=== PATIENT | female | born 1965 | race Hispanic/Latino ===

== ENCOUNTER 2017-07-10 16:03 | Emergency (ER) | payer MEDICARE ==
[~2017-07-10] VITALS: Ht 162.6 cm; Wt 79.4 kg
== END 2017-07-10 17:16 | disposition home or self-care (01) ==
LOC: ER 16:03
DX: R50.9 Fever, unspecified (principal); R05 Cough; J20.8 Acute bronchitis due to other specified organisms; I10 Essential (primary) hypertension
CPT/HCPCS: 99283

== ENCOUNTER 2019-01-31 19:38 | Emergency (ER) | payer MEDICARE ==
[~2019-01-31] VITALS: Ht 162.6 cm; Wt 79.4 kg
--- OUTSIDE RECORDS SUMMARY | 2019-01-31 19:41 | XMS REPORT | Clinical Summary ---
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 Last Filed Vital Signs Not on file Plan of Treatment Health Maintenance Due Date Last Done Comments BREAST CANCER SCREENING 09/28/2013 COLONOSCOPY SCREENING 09/28/2013 SHINGLES VACCINES (#1) 09/28/2013 INFLUENZA VACCINE 02/17/2019 Results Not on fileafter 01/30/2018 Insurance Type Payer Benefit Subscriber ID Effective Phone Address Plan / Dates Group Medicare MEDICARE MEDICARE xxxxxxxxxx 2014- [place], PART A AND Present [place] Advance Directives Patient has advance care planning documents on file. For more information, debra maynard contact: [facility] Stephens [address] [place] [address]
--- OUTSIDE RECORDS SUMMARY | 2019-01-31 19:43 | XMS REPORT | Continuity of Care Document ---
Author Author [employer] Organization [employer] 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 Unavailable Unavailable Problems Problem Status Onset Date Classification Date Reported Comments Source CHEST PAIN Active 06/15/2012 [facility] PYELONEPHRITIS Active 06/11/2012 [facility] LEG NUMBNESS Active 12/16/2011 [facility] Asthma Active Problem 06/17/2012 [facility] Diabetic neuropathy Active Problem 06/17/2012 [facility] DM - Diabetes mellitus Active Problem 06/17/2012 [facility] HTN - Hypertension Active Problem 12/18/2011 [facility] MA - Myocardial infarction Active Problem 12/18/2011 [facility] PVD - Peripheral vascular disease Active Problem 12/18/2011 [facility] HTN - Hypertension Active Problem 06/17/2012 [facility] [place] - Myocardial infarction Active Problem 06/17/2012 [facility] PVD - Peripheral vascular disease Active Problem 06/17/2012 [facility] Medications Medication Details Route Status Patient Instructions Ordering Provider Order Date Source Phenergan 25 mg oral tablet 25 mg, 1 tab, PO, Q4H, PRN, 15 tab, Nausea, Substitution Allowed PO Active [facility] 06/16/2012 [facility] Vicodin 5/500 oral tablet 1-2 tablets, PO, Q4-6H, PRN, 30 tab, for Pain, Substitution Allowed, Maintenance PO Active [facility] 06/16/2012 [facility] Cipro 500 mg oral tablet 500 mg, 1 tab, PO, Q12H, 28 tab, Substitution Allowed, TAB PO Active [facility] 06/16/2012 [facility] ondansetron 4 mg, Route: IVP, Drug form: INJ, ONCE, Dosing Weight 76.364, kg, Priority: STAT, Start date: 06/16/12 3:07:00, Stop date: 06/16/12 3:07:00 IVP No Longer Active [facility] 06/16/2012 [facility] ketorolac 30 mg, Route: IVP, Drug form: INJ, ONCE, Dosing Weight 76.364, kg, Priority: STAT, Start date: 06/16/12 3:06:00, Stop date: 06/16/12 3:06:00 IVP No Longer Active [facility] 06/16/2012 [facility] hydrALAZINE 20 mg, Route: IVP, ONCE, Dosing Weight 76.364, kg, Priority: STAT, Start date: 06/16/12 2:33:00, Stop date: 06/16/12 2:33:00 IVP No Longer Active [facility] 06/16/2012 [facility] Insulin regular 6 unit, Route: SUB-Q, ONCE, Dosing Weight 76.364, kg, Start date: 06/16/12 1:36:00, Stop date: 06/16/12 1:36:00 SUB-Q No Longer Active [facility] 06/16/2012 [facility] clonidine 0.2 mg oral tablet 1 tab, Route: PO, ONCE, Dosing Weight 76.364, kg, Start date: 06/16/12 1:36:00, Stop date: 06/16/12 1:36:00 PO No Longer Active [facility] 06/16/2012 [facility] Levaquin 750 mg, Route: IV, ONCE, Dosing Weight 76.364, kg, Start date: 06/16/12 1:01:00, Stop date: 06/16/12 1:01:00 IV No Longer Active [facility] 06/16/2012 [facility] Dilaudid 1 mg, Route: IV, ONCE, Dosing Weight 76.364, kg, Priority: STAT, Start date: 06/16/12 0:26:00, Stop date: 06/16/12 0:26:00 IV No Longer Active [facility] 06/16/2012 [facility] ondansetron 4 mg, 2 mL, Route: IVP, Drug form: INJ, ONCE, Dosing Weight 76.364, kg, Priority: STAT, Start date: 06/15/12 22:18:00, Stop date: 06/15/12 22:18:00 IVP No Longer Active [facility] 06/16/2012 [facility] hydromorphone 1 mg, 1 mL, Route: IVP, Drug form: SOLN, ONCE, Dosing Weight 76.364, kg, Priority: STAT, Start date: 06/15/12 22:18:00, Stop date: 06/15/12 22:18:00 IVP No Longer Active [facility] 06/16/2012 [facility] Saline Flush 0.9% 5 mL, Route: IVP, Drug Form: INJ, Dosing Weight 76.364, kg, PRN, PRN Line Flush, Start date: 06/15/12 22:18:00, Duration: 24 hr, Stop date: 06/16/12 22:17:00 IVP No Longer Active [facility] 06/16/2012 [facility] [place] 5/325 oral tablet 1 tab, PO, Q6H, PRN, 14 tab, as needed for pain, Substitution Allowed, Maintenance, TAB PO Active [facility] 06/13/2012 [facility] Augmentin 875 mg oral tablet 1 tab, PO, Q12H, 14 tab, Substitution Allowed, Maintenance, TAB PO Active [facility] 06/13/2012 [facility] Toprol-XL 100 mg oral tablet, extended release 100 mg, 1 tab, Route: PO, Drug form: ERTAB, Daily, Start date: 06/13/12 9:00:00, Duration: 30 day, Stop date: 07/12/12 9:00:00 PO No Longer Active [facility] 06/13/2012 [facility] Lovenox 40 mg, 0.4 mL, Route: SUB-Q, Drug form: INJ, [id number], Dosing Weight 76.364, kg, Start date: 06/12/12 16:00:00, Duration: 30 day, Stop date: 07/11/12 16:00:00 SUB-Q No Longer Active [facility] 06/12/2012 [facility] NS 1,000 mL 1,000 mL, Rate: 125 ml/hr, Infuse over: 8 hr, Route: IV, kg, Total Volume: 1,000, Start date: 06/12/12 15:14:00, Duration: 30 day, Stop date: 07/12/12 15:13:00 IV No Longer Active [facility] 06/12/2012 [facility] Dilaudid 2 mg, 1 mL, Route: IV, Drug form: INJ, Q3H, Dosing Weight 76.364, kg, PRN Pain, Start date: 06/12/12 13:12:00, Duration: 30 day, Stop date: 07/12/12 13:11:00 IV No Longer Active [facility] 06/12/2012 [facility] promethazine 25 mg, 1 mL, Route: IM, Drug form: INJ, ONCE, Dosing Weight 76.364, kg, PRN Pain, Start date: 06/12/12 13:11:00 IM No Longer Active [facility] 06/12/2012 [facility] meperidine 50 mg, 1 mL, Route: IM, Drug form: INJ, ONCE, Dosing Weight 76.364, kg, PRN Pain, Start date: 06/12/12 13:10:00, Stop date: 06/16/12 13:09:00 IM No Longer Active [facility] 06/12/2012 [facility] lisinopril 20 mg, 1 tab, Route: PO, Drug form: TAB, Daily, Dosing Weight 76.364, kg, Start date: 06/12/12 9:00:00, Duration: 30 day, Stop date: 07/11/12 9:00:00 PO No Longer Active [facility] 06/12/2012 [facility] Dilaudid 1 mg, 1 mL, Route: IV, Drug form: SOLN, Q4H, Dosing Weight 76.364, kg, PRN Pain, Start date: 06/12/12 8:21:00, Duration: 30 day, Stop date: 07/12/12 8:20:00 IV No Longer Active [facility] 06/12/2012 [facility] NS 250 mL 250 mL, Rate: 25 ml/hr, Infuse over: 10 hr, Route: IV, kg, Total Volume: 250, Start date: 06/12/12 7:57:00, Duration: 1 doses or times, Stop date: 06/12/12 17:56:00, Bolus DoseBolus Dose IV No Longer Active [facility] 06/12/2012 [facility] glucagon 1 mg, Route: IM, Drug form: PDR/INJ, PRN, PRN Blood Glucose Results, Start date: 06/12/12 7:33:00, Duration: 30 day, Stop date: 07/12/12 7:32:00 IM No Longer Active [facility] 06/12/2012 [facility] Dextrose 50% in Water IV 50 mL, Route: IVP, Start date: 06/12/12 7:33:00, Duration: 30 day, Stop date: 07/12/12 7:32:00, PRN Blood Glucose Results IVP No Longer Active [facility] 06/12/2012 [facility] NovoLog FlexPen 18 unit, 0.18 mL, Route: SUB-Q, Drug form: SOLN, Sliding Scale, PRN Blood Glucose Results, Start date: 06/12/12 7:33:00, Duration: 30 day, Stop date: 07/12/12 7:32:00 SUB-Q No Longer Active [facility] 06/12/2012 [facility] meperidine 25 mg, 0.5 mL, Route: IVP, Drug form: INJ, Q4H, Dosing Weight 76.364, kg, PRN Pain, Start date: 06/12/12 7:27:00, Stop date: 06/16/12 7:26:00 IVP No Longer Active [facility] 06/12/2012 [facility] promethazine + Sodium Chloride 0.9% IV 20 mL 25 mg, 1 mL, Route: IVP Central, Drug form: INJ, Q4H, Dosing Weight 76.364, kg, PRN Nausea & Vomiting, Start date: 06/12/12 7:27:00, Duration: 30 day, Stop date: 07/12/12 7:26:00 IVP Central No Longer Active [facility] 06/12/2012 [facility] Dilaudid 1 mg, 1 mL, Route: IV, Drug form: SOLN, Q4H, Dosing Weight 76.364, kg, Start date: 06/12/12 4:00:00, Duration: 30 day, Stop date: 07/12/12 0:00:00 IV No Longer Active [facility] 06/12/2012 [facility] Novolin R 30 units, Bedtime, Substitution Allowed Active 06/12/2012 [facility] ceftriaxone + Sodium Chloride 0.9% IV 100 mL 1 gm, Route: IVPB, [id number], Dosing Weight 76.364, kg, Start date: 06/12/12 3:00:00, Duration: 30 day, Stop date: 07/11/12 3:00:00 IVPB No Longer Active [facility] 06/12/2012 [facility] Zofran 4 mg, 2 mL, Route: IVP, Drug form: INJ, TID, Dosing Weight 76.364, kg, Priority: STAT, Start date: 06/12/12 2:07:00, Duration: 30 day, Stop date: 07/11/12 17:00:00 IVP No Longer Active [facility] 06/12/2012 [facility] Rocephin 1 g/ NS (NaCl 0.9%) 50 mL IV solution + Sodium Chloride 0.9% IV 100 mL 1 gm, Route: IVPB, ONCE, Dosing Weight 76.364, kg, Priority: STAT, Start date: 06/11/12 23:55:00, Stop date: 06/11/12 23:55:00 IVPB No Longer Active [facility] 06/12/2012 [facility] Dilaudid 1 mg, 1 mL, Route: IV, Drug form: SOLN, ONCE, Dosing Weight 76.364, kg, Start date: 06/11/12 23:44:00, Stop date: 06/11/12 23:44:00 IV No Longer Active [facility] 06/12/2012 [facility] Benadryl 25 mg, 0.5 mL, Route: IVP, Drug form: INJ, ONCE, Dosing Weight 76.364, kg, Priority: STAT, Start date: 06/11/12 22:53:00, Stop date: 06/11/12 22:53:00 IVP No Longer Active [facility] 06/12/2012 [facility] morphine Sulfate 4 mg, 2 mL, Route: IVP, Drug form: INJ, ONCE, Dosing Weight 76.364, kg, Priority: STAT, Start date: 06/11/12 21:43:00, Stop date: 06/11/12 21:43:00 IVP No Longer Active [facility] 06/12/2012 [facility] Sodium Chloride 0.9% (Bolus) IV 1,000 mL 1,000 mL, Rate: 1,000 ml/hr, Infuse over: 1 hr, Route: IV, kg, Total Volume: 1,000, Bolus Dose, Priority: STAT, Start date: 06/11/12 21:43:00, Duration: 1 doses or times, Stop date: 06/11/12 22:42:00 IV No Longer Active [facility] 06/12/2012 [facility] Zofran 4 mg, 2 mL, Route: IVP, Drug form: INJ, ONCE, Dosing Weight 76.364, kg, Priority: STAT, Start date: 06/11/12 21:43:00, Stop date: 06/11/12 21:43:00 IVP No Longer Active [facility] 06/12/2012 [facility] Augmentin 875 mg oral tablet 1 tab, PO, Q12H, 20 tab, Substitution Allowed, Maintenance, TAB PO Active [facility] 12/16/2011 [facility] ibuprofen 400 mg oral tablet 400 mg, PO, Q6H, PRN, 15 tab, Pain, Substitution Allowed PO Active [facility] 12/16/2011 [facility] Zosyn 3.375 gm, 100 mL, Route: IVPB, Drug form: PDR/INJ, ONCE, Priority: STAT, Start date: 12/16/11 18:40:00, Stop date: 12/16/11 18:40:00 IVPB No Longer Active [facility] 12/16/2011 [facility] ondansetron 4 mg, 2 mL, Route: IVP, Drug form: INJ, ONCE, Priority: STAT, Start date: 12/16/11 13:52:00, Stop date: 12/16/11 13:52:00 IVP No Longer Active [facility] 12/16/2011 [facility] morphine Sulfate 4 mg, 2 mL, Route: IVP, Drug form: INJ, ONCE, Priority: STAT, Start date: 12/16/11 13:52:00, Stop date: 12/16/11 13:52:00 IVP No Longer Active [facility] 12/16/2011 [facility] Sodium Chloride 0.9% (Bolus) IV 1,000 mL 1,000 mL, Rate: 1,000 ml/hr, Infuse over: 1 hr, Route: IV, Dosing Weight 77.7 kg, Total Volume: 1,000, Bolus Dose, Priority: STAT, Start date: 12/16/11 13:52:00, Duration: 1 doses or times, Stop date: 12/16/11 14:51:00 IV No Longer Active [facility] 12/16/2011 [facility] Pneumovax 23 0.5 ml, Route: IM, Drug Form: INJ, ONCE, Start date: 12/15/11 12:00:00, Stop date: 12/15/11 12:00:00 IM No Longer Active [facility] 12/15/2011 [facility] [place] 5/325 oral tablet 1 tab, PO, Q4H, PRN, 20 tab, for pain, Substitution Allowed, Maintenance, TAB PO Active [facility] 12/15/2011 [facility] Augmentin 500 mg oral tablet 1 tab, PO, Q12H, 14 tab, Substitution Allowed, Maintenance PO Active [facility] 12/15/2011 [facility] Insulin regular 10 unit, Route: IVP, ONCE, Start date: 12/14/11 14:17:00, Stop date: 12/14/11 14:17:00 IVP No Longer Active [facility] 12/14/2011 [facility] ondansetron 4 mg, 2 mL, Route: IVP, Drug form: INJ, ONCE, PRN Nausea & Vomiting, Start date: 12/14/11 14:17:00 IVP No Longer Active [facility] 12/14/2011 [facility] flumazenil 0.2 mg, 2 mL, Route: IVP, Drug form: INJ, PRN, PRN Benzodiazepine Reversal, Initial dose, Start date: 12/14/11 14:17:00, Duration: 30 day, Stop date: 01/13/12 14:16:00 IVP No Longer Active [facility] 12/14/2011 [facility] naloxone 0.04 mg, 0.1 mL, Route: IVP, Drug form: INJ, Q2MIN, PRN Narcotic Reversal, Start date: 12/14/11 14:17:00, Duration: 8 doses or times, Stop date: Limited # of times IVP No Longer Active [facility] 12/14/2011 [facility] morphine Sulfate 2 mg, 1 mL, Route: IVP, Drug form: INJ, Q5Min, PRN Pain Score 4-6, Start date: 12/14/11 14:17:00, Duration: 8 doses or times, Stop date: Limited # of times IVP No Longer Active [facility] 12/14/2011 [facility] meperidine 12.5 mg, 0.25 mL, Route: IVP, Drug form: INJ, Q30Min, PRN Other -See Comment, For shivering, Start date: 12/14/11 14:17:00, Duration: 2 doses or times, Stop date: Limited # of times IVP No Longer Active [facility] 12/14/2011 [facility] Invanz 1 gm, Route: IVPB, ONCALL, Start date: 12/13/11 13:00:00, Duration: 1 doses or times IVPB No Longer Active [facility] 12/13/2011 [facility] Rocephin 1 gm, Route: IVPB, [id number], Start date: 12/13/11 1:00:00, Duration: 30 day, Stop date: 01/11/12 1:00:00 IVPB No Longer Active [facility] 12/13/2011 [facility] Protonix 40 mg, Route: IVP, Drug form: INJ, Before Dinner, Start date: 12/12/11 16:30:00, Duration: 30 day, Stop date: 01/10/12 16:30:00 IVP No Longer Active [facility] 12/12/2011 [facility] Vasotec 1.25 mg, 1 mL, Route: IVP, Drug form: INJ, Q6H, Start date: 12/12/11 12:00:00, Duration: 30 day, Stop date: 01/11/12 6:00:00 IVP No Longer Active [facility] 12/12/2011 [facility] insulin aspart 4 unit, 0.04 mL, Route: SUB-Q, Drug form: SOLN, TID-Before Meals, PRN Blood Glucose Results, Start date: 12/12/11 10:24:00, Duration: 30 day, Stop date: 01/11/12 10:23:00 SUB-Q No Longer Active [facility] 12/12/2011 [facility] Dextrose 50% Syringe 25 gm, 50 mL, Route: IVP, Drug Form: INJ, PRN, PRN Blood Glucose Results, Start date: 12/12/11 10:24:00, Duration: 30 day, Stop date: 01/11/12 10:23:00 IVP No Longer Active [facility] 12/12/2011 [facility] glucagon 1 mg, Route: IM, Drug form: PDR/INJ, PRN, PRN Blood Glucose Results, Start date: 12/12/11 10:24:00, Duration: 30 day, Stop date: 01/11/12 10:23:00 IM No Longer Active [facility] 12/12/2011 [facility] pneumococcal 23-valent vaccine 0.5 ml, Route: IM, Drug Form: INJ, Start date: 12/12/11 9:00:00, Stop date: 12/12/11 9:00:00 IM No Longer Active [facility] 12/12/2011 [facility] Zosyn 3.375 gm, 100 mL, Route: IVPB, Drug form: PDR/INJ, [id number], Start date: 12/12/11 9:00:00, Duration: 30 day, Stop date: 01/11/12 3:00:00 IVPB No Longer Active [facility] 12/12/2011 [facility] Dilaudid 2 mg, 1 mL, Route: IV, Drug form: INJ, Q3H, PRN Pain, Start date: 12/12/11 8:53:00, Duration: 30 day, Stop date: 01/11/12 8:52:00 IV No Longer Active [facility] 12/12/2011 [facility] nitroglycerin 0.4 mg sublingual tablet 0.4 mg, 1 tab, Route: SL, Drug form: TAB, Q5Min, PRN Chest Pain, Start date: 12/12/11 3:14:00, Duration: 30 day, Stop date: 01/11/12 3:13:00 SL No Longer Active [facility] 12/12/2011 [facility] atropine 0.5 mg, 5 mL, Route: IVP, Drug form: INJ, PRN, PRN Bradycardia, Start date: 12/12/11 3:14:00, Duration: 30 day, Stop date: 01/11/12 3:13:00 IVP No Longer Active [facility] 12/12/2011 [facility] Dextrose 50% Syringe 12.5 gm, 25 mL, Route: IVP, Drug Form: INJ, PRN, PRN Blood Glucose Results, Start date: 12/12/11 3:10:00, Duration: 30 day, Stop date: 01/11/12 3:09:00 IVP No Longer Active [facility] 12/12/2011 [facility] glucagon 1 mg, Route: IM, Drug form: PDR/INJ, PRN, PRN Blood Glucose Results, Start date: 12/12/11 3:10:00, Duration: 30 day, Stop date: 01/11/12 3:09:00 IM No Longer Active [facility] 12/12/2011 [facility] Saline Flush 0.9% 5 ml, Route: IVP, Drug Form: INJ, PRN, PRN Line Flush, Start date: 12/12/11 3:10:00, Duration: 30 day, Stop date: 01/11/12 3:09:00 IVP No Longer Active [facility] 12/12/2011 [facility] Sodium Chloride 0.9% IV 1,000 mL 1,000 mL 1,000 mL, Rate: 75 ml/hr, Infuse over: 13.3 hr, Route: IV, Dosing Weight 77.727 kg, Total Volume: 1,000, Start date: 12/12/11 3:10:00, Duration: 30 day, Stop date: 01/11/12 3:09:00 IV No Longer Active [facility] 12/12/2011 [facility] ondansetron 4 mg, 2 mL, Route: IVP, Drug form: INJ, Q6H, PRN Nausea & Vomiting, Start date: 12/12/11 3:10:00, Duration: 30 day, Stop date: 01/11/12 3:09:00 IVP No Longer Active [facility] 12/12/2011 [facility] morphine Sulfate 4 mg, 2 mL, Route: IVP, Drug form: INJ, Q4H, PRN Pain Score 7-10, Start date: 12/12/11 3:10:00, Duration: 30 day, Stop date: 01/11/12 3:09:00 IVP No Longer Active [facility] 12/12/2011 [facility] morphine Sulfate 4 mg, Route: IVP, ONCE, Priority: STAT, Start date: 12/12/11 2:30:00, Stop date: 12/12/11 2:30:00 IVP No Longer Active [facility] 12/12/2011 [facility] NS (Bolus) IV 1000 mL 1,000 mL, Rate: 1,000 ml/hr, Infuse over: 1 hr, Route: IV, Dosing Weight 77.727 kg, Total Volume: 1,000, Priority: STAT, Start date: 12/12/11 1:01:00, Duration: 1 doses or times, Stop date: 12/12/11 2:00:00, Bolus DoseBolus Dose IV No Longer Active [facility] 12/12/2011 [facility] Rocephin 1 gm, Route: IVPB, ONCE, Start date: 12/12/11 0:05:00, Stop date: 12/12/11 0:05:00 IVPB No Longer Active [facility] 12/12/2011 [facility] Insulin regular 10 unit, Route: SUB-Q, ONCE, Priority: STAT, Start date: 12/12/11 0:03:00, Stop date: 12/12/11 0:03:00 SUB-Q No Longer Active [facility] 12/12/2011 [facility] morphine Sulfate 4 mg, Route: IVP, ONCE, Start date: 12/12/11 0:03:00, Stop date: 12/12/11 0:03:00 IVP No Longer Active [facility] 12/12/2011 [facility] Protonix 40 mg, Route: IVP, Drug form: INJ, ONCE, Priority: STAT, Start date: 12/11/11 22:32:00, Stop date: 12/11/11 22:32:00 IVP No Longer Active [facility] 12/12/2011 [facility] Saline Flush 0.9% 5 ml, Route: IVP, Drug Form: INJ, PRN, PRN Line Flush, Start date: 12/11/11 22:31:00, Duration: 24 hr, Stop date: 12/12/11 22:30:00 IVP No Longer Active [facility] 12/12/2011 [facility] ondansetron 4 mg, 2 mL, Route: IVP, Drug form: INJ, ONCE, Priority: STAT, Start date: 12/11/11 22:31:00, Stop date: 12/11/11 22:31:00 IVP No Longer Active [facility] 12/12/2011 [facility] morphine Sulfate 2 mg, 1 mL, Route: IVP, Drug form: INJ, ONCE, Priority: STAT, Start date: 12/11/11 22:31:00, Stop date: 12/11/11 22:31:00 IVP No Longer Active [facility] 12/12/2011 [facility] Tylenol 1,000 mg, 2 tab, Route: PO, Drug form: TAB, ONCE, Priority: STAT, Start date: 12/11/11 21:57:00, Stop date: 12/11/11 21:57:00 PO No Longer Active [facility] 12/12/2011 [facility] pneumococcal 23-valent vaccine 0.5 ml, Route: IM, Drug Form: INJ, ONCALL, Start date: 06/30/07 1:00:00, Duration: 1 doses or times, Stop date: 07/01/07 0:00:00 IM No Longer Active [facility] 06/30/2007 [facility] Allergies, Adverse Reactions, Alerts Substance Category Reaction Severity Reaction type Status Date Reported Comments Source morphine drug allergy Allergy Active [facility] Immunizations Immunization Date Given Site Status Last Updated Comments Source pneumococcal 23-valent vaccine 12/15/2011 Not Given [facility] pneumococcal 23-valent vaccine 12/15/2011 completed [facility] pneumococcal 23-valent vaccine<sup>1</sup> 06/30/2007 completed Marta Caraballo Comment: lot # [id number], exp. , david. [facility] Results Order Name Results Value Reference Range Date Interpretation Comments Source CHEMISTRY Lipase Lvl 145 73 - 393 06/16/2012 Normal [facility] CHEMISTRY AST 40 0 - 37 06/16/2012 [place] [facility] CHEMISTRY A/G Ratio 0.5 0.7 - 1.6 06/16/2012 LOW [facility] CHEMISTRY Bili Total 0.3 0.2 - 1.3 06/16/2012 Normal [facility] CHEMISTRY Total Protein 7.9 6.4 - 8.4 06/16/2012 Normal [facility] CHEMISTRY Globulin 5.1 2.0 - 4.0 06/16/2012 [place] [facility] CHEMISTRY Alk Phos 112 39 - 136 06/16/2012 Normal [facility] CHEMISTRY ALT 26 0 - 65 06/16/2012 Normal [facility] CHEMISTRY Calcium Lvl 9.3 8.5 - 10.5 06/16/2012 Normal [facility] CHEMISTRY Albumin Lvl 2.8 3.5 - 5.0 06/16/2012 LOW [facility] CHEMISTRY B/C Ratio 19 6 - 25 06/16/2012 Normal [facility] CHEMISTRY CO2 27 24 - 32 06/16/2012 Normal [facility] CHEMISTRY AGAP 12.9 10.0 - 20.0 06/16/2012 Normal [facility] CHEMISTRY eGFR 103 06/16/2012 NA <sup>1</sup>Result Comment: The eGFR is calculated using the CKD-EPI formula. In most young, healthy individuals the eGFR will be >90 mL/min/1.73m2. The eGFR declines with age. An eGFR of 60-89 may be normal in some populations, particularly the elderly, for whom the CKD-EPI formula has not been extensively validated. Use of the eGFR is not recommended in the following populations:& lt;br/>
Individuals with unstable creatinine concentrations, including patients and those with serious co-morbid conditions.

Patients with extremes in muscle mass or diet.

The data above are obtained from the National Kid[employer] Disease Education Program (NKDEP) which additionally recommends that when the eGFR is used in patients with extremes of body mass index for purposes of drug dosing, the eGFR should be multiplied by the estimated BMI. [facility] CHEMISTRY Chloride Lvl 101 95 - 109 06/16/2012 Normal [facility] CHEMISTRY Sodium Lvl 136 135 - 145 06/16/2012 Normal [facility] CHEMISTRY Potassium Lvl 4.9 3.5 - 5.1 06/16/2012 Normal [facility] CHEMISTRY Creatinine Lvl 0.7 0.5 - 1.4 06/16/2012 Normal [facility] CHEMISTRY Glucose Lvl 289 70 - 99 06/16/2012 [place] <sup>2</sup>Interpretive Data: Adult reference range values reflect the clinical guidelines
of the [place] [employer]. [facility] CHEMISTRY BUN 13 7 - 22 06/16/2012 Normal [facility] CHEMISTRY CK MB 3.1 0.5 - 3.6 06/16/2012 Normal [facility] CHEMISTRY Total CK 266 12 - 191 06/16/2012 [facility] CHEMISTRY Troponin-I <0.02 0.00 - 0.40 06/16/2012 Normal [facility] CHEMISTRY CK MB Index 1.2 0.0 - 2.5 06/16/2012 Normal [facility] HEMATOLOGY MPV 11.2 7.4 - 10.4 06/16/2012 [facility] HEMATOLOGY MCH 27.9 27.0 - 31.0 06/16/2012 Normal [facility] HEMATOLOGY Hct 33.2 36.0 - 48.0 06/16/2012 LOW [facility] HEMATOLOGY Hgb 10.8 12.0 - 16.0 06/16/2012 LOW [facility] HEMATOLOGY RBC 3.88 4.20 - 5.40 06/16/2012 LOW [facility] HEMATOLOGY MCV 85.7 81.0 - 99.0 06/16/2012 Normal [facility] HEMATOLOGY Platelet 344 133 - 450 06/16/2012 Normal [facility] HEMATOLOGY MCHC 32.6 32.0 - 36.0 06/16/2012 Normal [facility] HEMATOLOGY RDW 15.9 11.5 - 14.5 06/16/2012 [facility] HEMATOLOGY WBC 13.0 3.7 - 10.4 06/16/2012 [facility] HEMATOLOGY PT 11.5 12.0 - 14.7 06/16/2012 LOW [facility] HEMATOLOGY INR 0.82 0.85 - 1.17 06/16/2012 LOW <sup>3</sup>Interpretive Data: RECOMMENDED RANGES FOR PROTIME INR:
2.0-3.0 for most medical and surgical thromboembolic states.
2.5-3.5 for artificial heart valves and recurrent embolism.

INR SHOULD BE USED ONLY FOR PATIENTS ON STABLE ANTICOAGULANT THERAPY. [facility] HEMATOLOGY PTT 21.3 22.9 - 35.8 06/16/2012 LOW <sup>4</sup>Interpretive Data: Heparin Therapeutic Range: 57 - 92 Seconds [facility] HEMATOLOGY Lymphocytes 24.4 20.0 - 40.0 06/16/2012 Normal [facility] HEMATOLOGY Monocytes 6.1 2.0 - 12.0 06/16/2012 Normal [facility] HEMATOLOGY Eosinophils 3.0 0.0 - 4.0 06/16/2012 Normal [facility] HEMATOLOGY Segs 63.9 45.0 - 75.0 06/16/2012 Normal [facility] HEMATOLOGY Basophils 2.6 0.0 - 1.0 06/16/2012 [facility] HEMATOLOGY Segs-Bands # 8.3 1.5 - 8.1 06/16/2012 [facility] HEMATOLOGY Eosinophils # 0.4 0.0 - 0.5 06/16/2012 Normal [facility] HEMATOLOGY Basophils # 0.3 0.0 - 0.2 06/16/2012 [facility] HEMATOLOGY Lymphocytes # 3.2 1.0 - 5.5 06/16/2012 Normal [facility] HEMATOLOGY Monocytes # 0.8 0.0 - 0.8 06/16/2012 Normal [facility] URINALYSIS UA Leuk Est Large *ABN* (06/15/2012 23:10:00) Negative 06/16/2012 [facility] URINALYSIS UA Color Ltyellow 06/16/2012 [facility] URINALYSIS UA Urobilinogen 0.1 - 1.0 06/16/2012 [facility] URINALYSIS UA Protein 100 mg/dL *ABN* (06/15/2012 23:10:00) Negative 06/16/2012 [facility] URINALYSIS UA pH 7.0 5.0 - 8.0 06/16/2012 Normal [facility] URINALYSIS UA Glucose 500 mg/dL *ABN* (06/15/2012 23:10:00) Negative 06/16/2012 [facility] URINALYSIS UA Bacteria Few /HPF *NA* (06/15/2012 23:10:00) None Seen 06/16/2012 [facility] URINALYSIS UA RBC 14 0 - 2 06/16/2012 [facility] URINALYSIS UA WBC >182 0 - 5 06/16/2012 [facility] URINALYSIS UA Sq Epi Occasional /LPF *NA* (06/15/2012 23:10:00) Few 06/16/2012 NA [facility] URINALYSIS UA Blood Small *ABN* (06/15/2012 23:10:00) Negative 06/16/2012 ABN [facility] URINALYSIS UA Ketones Negative mg/dL *NA* (06/15/2012 23:10:00) Negative 06/16/2012 NA [facility] URINALYSIS UA Nitrite Positive *ABN* (06/15/2012 23:10:00) Negative 06/16/2012 ABN [facility] URINALYSIS UA Bili Negative *NA* (06/15/2012 23:10:00) Negative 06/16/2012 [facility] URINALYSIS UA Turbidity Marked *ABN* (06/15/2012 23:10:00) Clear 06/16/2012 ABN [facility] URINALYSIS UA Spec Grav 1.013 <=1.030 06/16/2012 Normal [facility] STOOL TESTS Occult Bld Stl Negative (06/15/2012 22:18:00) Negative 06/16/2012 Normal [facility] BEDSIDE GLUCOSE TESTING Comment1 Notify SUNDEEP/ 06/13/2012 [facility] BEDSIDE GLUCOSE TESTING Gluc POC Lifscn 201 70 - 99 06/13/2012 [place] <sup>1</sup>Interpretive Data: Upper Reportable Limit: 200 mg/dL. [facility] BEDSIDE GLUCOSE TESTING Comment1 Notify SUNDEEP/ 06/13/2012 [facility] BEDSIDE GLUCOSE TESTING Gluc POC Lifscn 191 70 - 99 06/13/2012 [place] <sup>2</sup>Interpretive Data: Upper Reportable Limit: 200 mg/dL. [facility] CHEMISTRY eGFR 44 06/13/2012 NA <sup>4</sup>Result Comment: The eGFR is calculated using the CKD-EPI formula. In most young, healthy individuals the eGFR will be >90 mL/min/1.73m2. The eGFR declines with age. An eGFR of 60-89 may be normal in some populations, particularly the elderly, for whom the CKD-EPI formula has not been extensively validated. Use of the eGFR is not recommended in the following populations:& lt;br/>
Individuals with unstable creatinine concentrations, including patients and those with serious co-morbid conditions.

Patients with extremes in muscle mass or diet.

The data above are obtained from the National Kid[employer] Disease Education Program (NKDEP) which additionally recommends that when the eGFR is used in patients with extremes of body mass index for purposes of drug dosing, the eGFR should be multiplied by the estimated BMI. [facility] CHEMISTRY Glucose Lvl 116 70 - 99 06/13/2012 [facility] <sup>6</sup>Interpretive Data: Adult reference range values reflect the clinical guidelines
of the [place] [employer]. [facility] CHEMISTRY BUN 30 7 - 22 06/13/2012 [facility] CHEMISTRY Creatinine Lvl 1.4 0.5 - 1.4 06/13/2012 Normal [facility] CHEMISTRY Sodium Lvl 143 135 - 145 06/13/2012 Normal [facility] CHEMISTRY Potassium Lvl 4.2 3.5 - 5.1 06/13/2012 Normal [facility] CHEMISTRY Chloride Lvl 109 95 - 109 06/13/2012 Normal [facility] CHEMISTRY CO2 25 24 - 32 06/13/2012 Normal [facility] CHEMISTRY Calcium Lvl 8.4 8.5 - 10.5 06/13/2012 LOW [facility] CHEMISTRY AGAP 13.2 10.0 - 20.0 06/13/2012 Normal [facility] HEMATOLOGY Platelet 279 133 - 450 06/13/2012 Normal [facility] HEMATOLOGY MCHC 32.5 32.0 - 36.0 06/13/2012 Normal [facility] HEMATOLOGY MCH 27.9 27.0 - 31.0 06/13/2012 Normal [facility] HEMATOLOGY RDW 16.4 11.5 - 14.5 06/13/2012 HI [facility] HEMATOLOGY MPV 10.3 7.4 - 10.4 06/13/2012 Normal [facility] HEMATOLOGY WBC 13.4 3.7 - 10.4 06/13/2012 HI [facility] HEMATOLOGY Hgb 9.8 12.0 - 16.0 06/13/2012 LOW [facility] HEMATOLOGY RBC 3.51 4.20 - 5.40 06/13/2012 LOW [facility] HEMATOLOGY MCV 85.9 81.0 - 99.0 06/13/2012 Normal [facility] HEMATOLOGY Hct 30.1 36.0 - 48.0 06/13/2012 LOW [facility] BEDSIDE GLUCOSE TESTING Gluc POC Lifscn 166 70 - 99 06/13/2012 [place] <sup>3</sup>Interpretive Data: Upper Reportable Limit: 200 mg/dL. [facility] BEDSIDE GLUCOSE TESTING Comment1 Notify RN/ 06/12/2012 NA [facility] Microbiology Culture: Urine 06/12/2012 [facility] CHEMISTRY Magnesium Lvl 1.7 1.8 - 2.4 06/12/2012 LOW [facility] CHEMISTRY Globulin 4.3 2.0 - 4.0 06/12/2012 [facility] CHEMISTRY A/G Ratio 0.7 0.7 - 1.6 06/12/2012 Normal [facility] CHEMISTRY B/C Ratio 22 6 - 25 06/12/2012 Normal [facility] CHEMISTRY AGAP 12.0 10.0 - 20.0 06/12/2012 Normal [facility] CHEMISTRY Alk Phos 120 39 - 136 06/12/2012 Normal [facility] CHEMISTRY ALT 31 0 - 65 06/12/2012 Normal [facility] CHEMISTRY AST 18 0 - 37 06/12/2012 Normal [facility] CHEMISTRY Bili Total 0.3 0.2 - 1.3 06/12/2012 Normal [facility] CHEMISTRY Total Protein 7.1 6.4 - 8.4 06/12/2012 Normal [facility] CHEMISTRY CO2 23 24 - 32 06/12/2012 LOW [facility] CHEMISTRY Albumin Lvl 2.8 3.5 - 5.0 06/12/2012 LOW [facility] CHEMISTRY Calcium Lvl 8.8 8.5 - 10.5 06/12/2012 Normal [facility] CHEMISTRY Chloride Lvl 108 95 - 109 06/12/2012 Normal [facility] CHEMISTRY Potassium Lvl 4.0 3.5 - 5.1 06/12/2012 Normal [facility] CHEMISTRY eGFR 60 06/12/2012 NA <sup>5</sup>Result Comment: The eGFR is calculated using the CKD-EPI formula. In most young, healthy individuals the eGFR will be >90 mL/min/1.73m2. The eGFR declines with age. An eGFR of 60-89 may be normal in some populations, particularly the elderly, for whom the CKD-EPI formula has not been extensively validated. Use of the eGFR is not recommended in the following populations:& lt;br/>
Individuals with unstable creatinine concentrations, including patients and those with serious co-morbid conditions.

Patients with extremes in muscle mass or diet.

The data above are obtained from the National Kid[employer] Disease Education Program (NKDEP) which additionally recommends that when the eGFR is used in patients with extremes of body mass index for purposes of drug dosing, the eGFR should be multiplied by the estimated BMI. [facility] CHEMISTRY BUN 24 7 - 22 06/12/2012 [facility] CHEMISTRY Glucose Lvl 175 70 - 99 06/12/2012 [facility] <sup>7</sup>Interpretive Data: Adult reference range values reflect the clinical guidelines
of the [place] [employer]. [facility] CHEMISTRY Sodium Lvl 139 135 - 145 06/12/2012 Normal [facility] CHEMISTRY Creatinine Lvl 1.1 0.5 - 1.4 06/12/2012 Normal [facility] HEMATOLOGY Lymphocytes # 2.8 1.0 - 5.5 06/12/2012 Normal [facility] HEMATOLOGY Basophils 0.4 0.0 - 1.0 06/12/2012 Normal [facility] HEMATOLOGY Segs-Bands # 8.9 1.5 - 8.1 06/12/2012 HI [facility] HEMATOLOGY Eosinophils 2.5 0.0 - 4.0 06/12/2012 Normal [facility] HEMATOLOGY Monocytes 4.6 2.0 - 12.0 06/12/2012 Normal [facility] HEMATOLOGY Lymphocytes 22.2 20.0 - 40.0 06/12/2012 Normal [facility] HEMATOLOGY Segs 70.3 45.0 - 75.0 06/12/2012 Normal [facility] HEMATOLOGY Eosinophils # 0.3 0.0 - 0.5 06/12/2012 Normal [facility] HEMATOLOGY Basophils # 0.0 0.0 - 0.2 06/12/2012 Normal [facility] HEMATOLOGY Monocytes # 0.6 0.0 - 0.8 06/12/2012 Normal [facility] HEMATOLOGY RBC Morph Normal (06/11/2012 22:23:00) 06/12/2012 Normal [facility] HEMATOLOGY Plt Morph Normal (06/11/2012 22:23:00) 06/12/2012 Normal [facility] HEMATOLOGY Hgb 11.0 12.0 - 16.0 06/12/2012 LOW [facility] HEMATOLOGY RBC 3.91 4.20 - 5.40 06/12/2012 LOW [facility] HEMATOLOGY WBC 12.6 3.7 - 10.4 06/12/2012 HI [facility] HEMATOLOGY Hct 33.2 36.0 - 48.0 06/12/2012 LOW [facility] HEMATOLOGY MCH 28.1 27.0 - 31.0 06/12/2012 Normal [facility] HEMATOLOGY MCV 85.0 81.0 - 99.0 06/12/2012 Normal [facility] HEMATOLOGY RDW 16.2 11.5 - 14.5 06/12/2012 [facility] HEMATOLOGY MCHC 33.1 32.0 - 36.0 06/12/2012 Normal [facility] HEMATOLOGY MPV 10.4 7.4 - 10.4 06/12/2012 Normal [facility] HEMATOLOGY Platelet 272 133 - 450 06/12/2012 Normal [facility] URINALYSIS UA Glucose 500 mg/dL *ABN* (06/11/2012 22:23:00) Negative 06/12/2012 ABN [facility] URINALYSIS UA Protein >=300 mg/dL *ABN* (06/11/2012 22:23:00) Negative 06/12/2012 ABN [facility] URINALYSIS UA pH 7.0 5.0 - 8.0 06/12/2012 Normal [facility] URINALYSIS UA Spec Grav 1.020 <=1.030 06/12/2012 Normal [facility] URINALYSIS UA Blood Negative (06/11/2012 22:23:00) Negative 06/12/2012 Normal [facility] URINALYSIS UA Bili Negative *NA* (06/11/2012 22:23:00) Negative 06/12/2012 [facility] URINALYSIS UA Ketones Negative mg/dL *NA* (06/11/2012 22:23:00) Negative 06/12/2012 NA [facility] URINALYSIS UA RBC 5 0 - 2 06/12/2012 [facility] URINALYSIS UA WBC >182 0 - 5 06/12/2012 [facility] URINALYSIS UA Sq Epi Occasional /LPF *NA* (06/11/2012 22:23:00) Few 06/12/2012 NA [facility] URINALYSIS UA Leuk Est Moderate *ABN* (06/11/2012 22:23:00) Negative 06/12/2012 ABN [facility] URINALYSIS UA Nitrite Positive *ABN* (06/11/2012 22:23:00) Negative 06/12/2012 ABN [facility] URINALYSIS UA Urobilinogen 0.1 - 1.0 06/12/2012 NA [facility] URINALYSIS UA Color Yellow *NA* (06/11/2012 22:23:00) Yellow 06/12/2012 NA [facility] URINALYSIS UA Turbidity Slight *ABN* (06/11/2012 22:23:00) Clear 06/12/2012 ABN [facility] CHEMISTRY U Preg Negative (12/16/2011 15:36:00) Negative 12/16/2011 Normal [facility] Microbiology Culture: Blood 12/16/2011 [facility] CHEMISTRY Troponin-I <0.02 0.00 - 0.40 12/16/2011 Normal [facility] CHEMISTRY CK MB Index 2.3 0.0 - 2.5 12/16/2011 Normal [facility] CHEMISTRY CK MB 3.7 0.5 - 3.6 12/16/2011 HI [facility] CHEMISTRY Total CK 164 12 - 191 12/16/2011 Normal [facility] CHEMISTRY Lipase Lvl 120 73 - 393 12/16/2011 Normal [facility] CHEMISTRY Amylase Lvl 31 25 - 115 12/16/2011 Normal [facility] CHEMISTRY ALT 44 0 - 65 12/16/2011 Normal [facility] CHEMISTRY AST 30 0 - 37 12/16/2011 Normal [facility] CHEMISTRY Bili Total 0.6 0.2 - 1.3 12/16/2011 Normal [facility] CHEMISTRY B/C Ratio 9 6 - 25 12/16/2011 Normal [facility] CHEMISTRY A/G Ratio 0.6 0.7 - 1.6 12/16/2011 LOW [facility] CHEMISTRY Globulin 4.4 2.0 - 4.0 12/16/2011 [facility] CHEMISTRY Alk Phos 100 39 - 136 12/16/2011 Normal [facility] CHEMISTRY BUN 19 7 - 22 12/16/2011 Normal [facility] CHEMISTRY Total Protein 7.1 6.4 - 8.4 12/16/2011 Normal [facility] CHEMISTRY CO2 25 24 - 32 12/16/2011 Normal [facility] CHEMISTRY Chloride Lvl 102 95 - 109 12/16/2011 Normal [facility] CHEMISTRY Potassium Lvl 3.5 3.5 - 5.1 12/16/2011 Normal [facility] CHEMISTRY Sodium Lvl 139 135 - 145 12/16/2011 Normal [facility] CHEMISTRY AGAP 15.5 10.0 - 20.0 12/16/2011 Normal [facility] CHEMISTRY Calcium Lvl 9.4 8.5 - 10.5 12/16/2011 Normal [facility] CHEMISTRY Albumin Lvl 2.7 3.5 - 5.0 12/16/2011 LOW [facility] CHEMISTRY Glucose Lvl 340 70 - 99 12/16/2011 [facility] <sup>1</sup>Interpretive Data: Adult reference range values reflect the clinical guidelines of the [place] [employer]. [facility] CHEMISTRY Creatinine Lvl 2.2 0.5 - 1.4 12/16/2011 [facility] HEMATOLOGY Basophils # 0.1 0.0 - 0.2 12/16/2011 Normal [facility] HEMATOLOGY Monocytes 5.6 2.0 - 12.0 12/16/2011 Normal [facility] HEMATOLOGY Lymphocytes 16.6 20.0 - 40.0 12/16/2011 LOW [facility] HEMATOLOGY Eosinophils # 0.1 0.0 - 0.5 12/16/2011 Normal [facility] HEMATOLOGY Monocytes # 0.9 0.0 - 0.8 12/16/2011 [facility] HEMATOLOGY Eosinophils 0.6 0.0 - 4.0 12/16/2011 Normal [facility] HEMATOLOGY Lymphocytes # 2.6 1.0 - 5.5 12/16/2011 Normal [facility] HEMATOLOGY Segs-Bands # 12.2 1.5 - 8.1 12/16/2011 [facility] HEMATOLOGY Basophils 0.3 0.0 - 1.0 12/16/2011 Normal [facility] HEMATOLOGY Segs 76.9 45.0 - 75.0 12/16/2011 [facility] HEMATOLOGY INR 1.02 0.85 - 1.17 12/16/2011 Normal <sup>2</sup>Interpretive Data: RECOMMENDED RANGES FOR PROTIME INR: 2.0-3.0 for most medical and surgical thromboembolic states. 2.5-3.5 for artificial heart valves and recurrent embolism. INR SHOULD BE USED ONLY FOR PATIENTS ON STABLE ANTICOAGULANT THERAPY. [facility] PTT 27.6 22.9 - 35.8 12/16/2011 Normal <sup>3</sup>Interpretive Data: Heparin Therapeutic Range: 57 - [address] [facility] PT 13.4 12.0 - 14.7 12/16/[address] [facility] RBC 3.79 4.20 - 5.40 12/16/2011 LOW [facility] HEMATOLOGY RDW 13.4 11.5 - 14.5 12/16/2011 Normal [facility] HEMATOLOGY Platelet 245 133 - 450 12/16/[address] [facility] MCHC 33.3 32.0 - 36.0 12/16/2011 Normal [facility] HEMATOLOGY Hct 32.8 36.0 - 48.0 12/16/2011 [facility] MCV 86.6 81.0 - 99.0 12/16/[address] [facility] MCH 28.8 27.0 - 31.0 12/16/[address] [facility] Hgb 10.9 12.0 - 16.0 12/16/2011 LOW [facility] HEMATOLOGY WBC 15.8 3.7 - 10.4 12/16/2011 HI [facility] HEMATOLOGY MPV 11.7 7.4 - 10.4 12/16/2011 HI [facility] Microbiology Culture: Blood 12/16/2011 [facility] BEDSIDE GLUCOSE TESTING Comment1 Notify TRANG 12/15/2011 NA [facility] BEDSIDE GLUCOSE TESTING Gluc POC Lifscn 321 70 - 99 12/15/2011 [place] <sup>1</sup>Interpretive Data: Upper Reportable Limit: 200 mg/dL. [facility] BEDSIDE GLUCOSE TESTING Comment1 Notify TRANG 12/15/2011 NA [facility] BEDSIDE GLUCOSE TESTING Gluc POC Lifscn 287 70 - 99 12/15/2011 [facility] <sup>2</sup>Interpretive Data: Upper Reportable Limit: 200 mg/dL. [facility] CHEMISTRY Albumin Lvl 2.5 3.5 - 5.0 12/15/2011 LOW [facility] CHEMISTRY AST 50 0 - 37 12/15/2011 HI [facility] CHEMISTRY ALT 42 0 - 65 12/15/2011 Normal [facility] CHEMISTRY Alk Phos 78 39 - 136 12/15/2011 Normal [facility] CHEMISTRY Bili Total 0.4 0.2 - 1.3 12/15/2011 Normal [facility] CHEMISTRY Bili Direct 0.1 0.0 - 0.3 12/15/2011 Normal [facility] CHEMISTRY Total Protein 6.5 6.4 - 8.4 12/15/2011 Normal [facility] CHEMISTRY A/G Ratio 0.6 0.7 - 1.6 12/15/2011 LOW [facility] CHEMISTRY Bili Indirect 0.3 0.0 - 1.0 12/15/2011 Normal [facility] CHEMISTRY Globulin 4.0 2.0 - 4.0 12/15/2011 Normal [facility] HEMATOLOGY Eosinophils # 0.2 0.0 - 0.5 12/15/2011 Normal [facility] HEMATOLOGY Monocytes # 1.0 0.0 - 0.8 12/15/2011 HI [facility] HEMATOLOGY Lymphocytes # 3.6 1.0 - 5.5 12/15/2011 Normal [facility] HEMATOLOGY Segs-Bands # 8.6 1.5 - 8.1 12/15/2011 HI [facility] HEMATOLOGY Eosinophils 1.6 0.0 - 4.0 12/15/2011 Normal [facility] HEMATOLOGY Lymphocytes 26.7 20.0 - 40.0 12/15/2011 Normal [facility] HEMATOLOGY Basophils 0.4 0.0 - 1.0 12/15/2011 Normal [facility] HEMATOLOGY Monocytes 7.5 2.0 - 12.0 12/15/2011 Normal [facility] HEMATOLOGY Segs 63.8 45.0 - 75.0 12/15/2011 Normal [facility] HEMATOLOGY Basophils # 0.1 0.0 - 0.2 12/15/2011 Normal [facility] HEMATOLOGY MCV 86.4 81.0 - 99.0 12/15/2011 Normal [facility] HEMATOLOGY Hgb 10.7 12.0 - 16.0 12/15/2011 LOW [facility] HEMATOLOGY MCH 28.9 27.0 - 31.0 12/15/2011 Normal [facility] HEMATOLOGY Hct 31.9 36.0 - 48.0 12/15/2011 LOW [facility] HEMATOLOGY RBC 3.69 4.20 - 5.40 12/15/2011 LOW [facility] HEMATOLOGY WBC 13.4 3.7 - 10.4 12/15/2011 HI [facility] HEMATOLOGY MCHC 33.4 32.0 - 36.0 12/15/2011 Normal [facility] HEMATOLOGY RDW 13.7 11.5 - 14.5 12/15/2011 Normal [facility] HEMATOLOGY Platelet 248 133 - 450 12/15/2011 Normal [facility] HEMATOLOGY MPV 11.8 7.4 - 10.4 12/15/2011 HI [facility] BEDSIDE GLUCOSE TESTING Comment1 Notify RN/ 12/15/2011 NA [facility] BEDSIDE GLUCOSE TESTING Gluc POC Lifscn 249 70 - 99 12/15/2011 [place] <sup>3</sup>Interpretive Data: Upper Reportable Limit: 200 mg/dL. [facility] CHEMISTRY Globulin 3.4 2.0 - 4.0 12/14/2011 Normal [facility] CHEMISTRY A/G Ratio 0.8 0.7 - 1.6 12/14/2011 Normal [facility] CHEMISTRY AGAP 14.8 10.0 - 20.0 12/14/2011 Normal [facility] CHEMISTRY B/C Ratio 11 6 - 25 12/14/2011 Normal [facility] CHEMISTRY Sodium Lvl 142 135 - 145 12/14/2011 Normal [facility] CHEMISTRY Chloride Lvl 105 95 - 109 12/14/2011 Normal [facility] CHEMISTRY Potassium Lvl 3.8 3.5 - 5.1 12/14/2011 Normal [facility] CHEMISTRY Alk Phos 81 39 - 136 12/14/2011 Normal [facility] CHEMISTRY Bili Total 0.4 0.2 - 1.3 12/14/2011 Normal [facility] CHEMISTRY AST 15 0 - 37 12/14/2011 Normal [facility] CHEMISTRY Creatinine Lvl 1.0 0.5 - 1.4 12/14/2011 Normal [facility] CHEMISTRY Glucose Lvl 239 70 - 99 12/14/2011 [place] <sup>4</sup>Interpretive Data: Adult reference range values reflect the clinical guidelines of the [place] [employer]. [facility] CHEMISTRY BUN 11 7 - 22 12/14/2011 Normal [facility] CHEMISTRY Calcium Lvl 8.8 8.5 - 10.5 12/14/2011 Normal [facility] CHEMISTRY Total Protein 6.1 6.4 - 8.4 12/14/2011 LOW [facility] CHEMISTRY Albumin Lvl 2.7 3.5 - 5.0 12/14/2011 LOW [facility] CHEMISTRY ALT 24 0 - 65 12/14/2011 Normal [facility] CHEMISTRY CO2 26 24 - 32 12/14/2011 Normal [facility] HEMATOLOGY MPV 11.0 7.4 - 10.4 12/14/2011 [facility] HEMATOLOGY MCHC 34.0 32.0 - 36.0 12/14/2011 Normal [facility] HEMATOLOGY Platelet 254 133 - 450 12/14/2011 Normal [facility] HEMATOLOGY RDW 13.3 11.5 - 14.5 12/14/2011 Normal [facility] HEMATOLOGY MCH 29.2 27.0 - 31.0 12/14/2011 Normal [facility] HEMATOLOGY Hgb 10.9 12.0 - 16.0 12/14/2011 LOW [facility] HEMATOLOGY Hct 32.0 36.0 - 48.0 12/14/2011 LOW [facility] HEMATOLOGY MCV 85.9 81.0 - 99.0 12/14/2011 Normal [facility] HEMATOLOGY WBC 12.4 3.7 - 10.4 12/14/2011 [facility] HEMATOLOGY RBC 3.73 4.20 - 5.40 12/14/2011 LOW [facility] HEMATOLOGY Eosinophils # 0.4 0.0 - 0.5 12/14/2011 Normal [facility] HEMATOLOGY Monocytes # 0.7 0.0 - 0.8 12/14/2011 Normal [facility] HEMATOLOGY Basophils # 0.1 0.0 - 0.2 12/14/2011 Normal [facility] HEMATOLOGY Lymphocytes 33.1 20.0 - 40.0 12/14/2011 Normal [facility] HEMATOLOGY Segs 57.8 45.0 - 75.0 12/14/2011 Normal [facility] HEMATOLOGY Eosinophils 3.0 0.0 - 4.0 12/14/2011 Normal [facility] HEMATOLOGY Monocytes 5.7 2.0 - 12.0 12/14/2011 Normal [facility] HEMATOLOGY Basophils 0.4 0.0 - 1.0 12/14/2011 Normal [facility] HEMATOLOGY Lymphocytes # 4.1 1.0 - 5.5 12/14/2011 Normal [facility] HEMATOLOGY Segs-Bands # 7.2 1.5 - 8.1 12/14/2011 Normal [facility] CHEMISTRY A/G Ratio 0.6 0.7 - 1.6 12/13/2011 LOW [facility] CHEMISTRY B/C Ratio 8 6 - 25 12/13/2011 Normal [facility] CHEMISTRY Globulin 4.3 2.0 - 4.0 12/13/2011 [facility] CHEMISTRY AGAP 15.7 10.0 - 20.0 12/13/2011 Normal [facility] CHEMISTRY Chloride Lvl 101 95 - 109 12/13/2011 Normal [facility] CHEMISTRY Potassium Lvl 3.7 3.5 - 5.1 12/13/2011 Normal [facility] CHEMISTRY Sodium Lvl 138 135 - 145 12/13/2011 Normal [facility] CHEMISTRY Albumin Lvl 2.6 3.5 - 5.0 12/13/2011 LOW [facility] CHEMISTRY Alk Phos 92 39 - 136 12/13/2011 Normal [facility] CHEMISTRY Calcium Lvl 8.6 8.5 - 10.5 12/13/2011 Normal [facility] CHEMISTRY ALT 31 0 - 65 12/13/2011 Normal [facility] CHEMISTRY Total Protein 6.9 6.4 - 8.4 12/13/2011 Normal [facility] CHEMISTRY BUN 11 7 - 22 12/13/2011 Normal [facility] CHEMISTRY Glucose Lvl 256 70 - 99 12/13/2011 [place] <sup>5</sup>Interpretive Data: Adult reference range values reflect the clinical guidelines of the [place] [employer]. [facility] CHEMISTRY AST 30 0 - 37 12/13/2011 Normal [facility] CHEMISTRY Bili Total 0.5 0.2 - 1.3 12/13/2011 Normal [facility] CHEMISTRY Creatinine Lvl 1.3 0.5 - 1.4 12/13/2011 Normal [facility] CHEMISTRY CO2 25 24 - 32 12/13/2011 Normal [facility] HEMATOLOGY Basophils 0.4 0.0 - 1.0 12/13/2011 Normal [facility] HEMATOLOGY Lymphocytes 26.2 20.0 - 40.0 12/13/2011 Normal [facility] HEMATOLOGY Eosinophils 2.2 0.0 - 4.0 12/13/2011 Normal [facility] HEMATOLOGY Segs-Bands # 9.2 1.5 - 8.1 12/13/2011 [facility] HEMATOLOGY Monocytes 5.1 2.0 - 12.0 12/13/2011 Normal [facility] HEMATOLOGY Monocytes # 0.7 0.0 - 0.8 12/13/2011 Normal [facility] HEMATOLOGY Lymphocytes # 3.7 1.0 - 5.5 12/13/2011 Normal [facility] HEMATOLOGY Basophils # 0.1 0.0 - 0.2 12/13/2011 Normal [facility] HEMATOLOGY Eosinophils # 0.3 0.0 - 0.5 12/13/2011 Normal [facility] HEMATOLOGY Segs 66.1 45.0 - 75.0 12/13/2011 Normal [facility] HEMATOLOGY Hgb 11.4 12.0 - 16.0 12/13/2011 LOW [facility] HEMATOLOGY RDW 13.3 11.5 - 14.5 12/13/2011 Normal [facility] HEMATOLOGY MPV 11.6 7.4 - 10.4 12/13/2011 [facility] HEMATOLOGY MCHC 34.0 32.0 - 36.0 12/13/2011 Normal [facility] HEMATOLOGY Platelet 282 133 - 450 12/13/2011 Normal [facility] HEMATOLOGY MCV 85.7 81.0 - 99.0 12/13/2011 Normal [facility] HEMATOLOGY MCH 29.1 27.0 - 31.0 12/13/2011 Normal [facility] HEMATOLOGY RBC 3.90 4.20 - 5.40 12/13/2011 LOW [facility] HEMATOLOGY WBC 13.9 3.7 - 10.4 12/13/2011 [facility] HEMATOLOGY Hct 33.5 36.0 - 48.0 12/13/2011 LOW [facility] HEMATOLOGY PTT 26.9 22.9 - 35.8 12/12/2011 Normal <sup>9</sup>Interpretive Data: Heparin Therapeutic Range: 57 - 92 Seconds [facility] HEMATOLOGY INR 0.90 0.85 - 1.17 12/12/2011 Normal <sup>8</sup>Interpretive Data: RECOMMENDED RANGES FOR PROTIME INR: 2.0-3.0 for most medical and surgical thromboembolic states. 2.5-3.5 for artificial heart valves and recurrent embolism. INR SHOULD BE USED ONLY FOR PATIENTS ON STABLE ANTICOAGULANT THERAPY. [facility] HEMATOLOGY PT 12.2 12.0 - 14.7 12/12/2011 Normal [facility] CHEMISTRY Troponin-I <0.02 0.00 - 0.40 12/12/2011 Normal [facility] CHEMISTRY Total CK 113 12 - 191 12/12/2011 Normal [facility] CHEMISTRY CK MB 5.4 0.5 - 3.6 12/12/2011 [facility] CHEMISTRY CK MB Index 4.8 0.0 - 2.5 12/12/2011 [facility] CHEMISTRY Lipase Lvl 191 73 - 393 12/12/2011 Normal [facility] CHEMISTRY Amylase Lvl 21 25 - 115 12/12/2011 LOW [facility] CHEMISTRY CK MB 8.0 0.5 - 3.6 12/12/2011 [facility] CHEMISTRY Total CK 171 12 - 191 12/12/2011 Normal [facility] CHEMISTRY Chloride Lvl 96 95 - 109 12/12/2011 Normal [facility] CHEMISTRY Potassium Lvl 4.3 3.5 - 5.1 12/12/2011 Normal [facility] CHEMISTRY B/C Ratio 17 6 - 25 12/12/2011 Normal [facility] CHEMISTRY Sodium Lvl 133 135 - 145 12/12/2011 LOW [facility] CHEMISTRY Creatinine Lvl 1.2 0.5 - 1.4 12/12/2011 Normal [facility] CHEMISTRY BUN 20 7 - 22 12/12/2011 Normal [facility] CHEMISTRY Glucose Lvl 461 70 - 99 12/12/2011 CRIT <sup>6</sup>Result Comment: Critical Result(s) called to marty at 12/11/2011 23:46 byemw. Read back OK.
<sup>7</sup>Interpretive Data: Adult reference range values reflect the clinical guidelines of the [place] [employer]. [facility] AGAP 16.3 10.0 - 20.0 12/12/2011 Normal [facility] CHEMISTRY Calcium Lvl 8.7 8.5 - 10.5 12/12/2011 Normal [facility] CO2 25 24 - 32 12/12/2011 Normal [facility] CHEMISTRY Troponin-I <0.02 0.00 - 0.40 12/12/2011 Normal [facility] CHEMISTRY CK MB Index 4.7 0.0 - 2.5 12/12/2011 [facility] URINALYS[facility] UA Urobilinogen 0.1 - 1.0 12/12/2011 NA [facility] UA WBC 18 0 - 5 12/12/2011 [facility] URINALYS[facility] UA Sq Epi Occasional /LPF *NA* (12/11/2011 22:15:00) Few 12/12/2011 NA [facility] UR[facility]AL[facility] UA Leuk Est Small *ABN* (12/11/2011 22:15:00) Negative 12/12/2011 ABN [facility] URINALYSIS UA RBC 1 0 - 2 12/12/2011 Normal [facility] URINALYSIS UA Bili Negative *NA* (12/11/2011 22:15:00) Negative 12/12/2011 NA [facility] URINALYS[facility] UA Glucose 500 mg/dL *ABN* (12/11/2011 22:15:00) Negative 12/12/2011 [facility] URINALYSIS UA Ketones Negative mg/dL *NA* (12/11/2011 22:15:00) Negative 12/12/2011 NA [facility] URINALYSIS UA Nitrite Negative (12/11/2011 22:15:00) Negative 12/12/2011 Normal [facility] URINALYSIS UA Blood Small *ABN* (12/11/2011 22:15:00) Negative 12/12/2011 ABN [facility] URINALYSIS UA Spec Grav 1.024 <=1.030 12/12/2011 Normal [facility] URINALYSIS UA Turbidity Marked *ABN* (12/11/2011 22:15:00) Clear 12/12/2011 ABN [facility] URINALYSIS UA Color Yellow *NA* (12/11/2011 22:15:00) Yellow 12/12/2011 NA [facility] URINALYSIS UA Protein 100 mg/dL *ABN* (12/11/2011 22:15:00) Negative 12/12/2011 ABN [facility] URINALYSIS UA pH 5.0 5.0 - 8.0 12/12/2011 Normal [facility] Pathology Reports No Data Provided for This Section Diagnostic Reports No Data Provided for This Section Consultation Notes No Data Provided for This Section Discharge Summaries No Data Provided for This Section History and Physicals No Data Provided for This Section Vital Signs Vital Sign Value Date Comments Source Height 162.56 cm 06/16/2012 [facility] Heart Rate 78 06/13/2012 [facility] Respitory Rate 18 06/13/2012 [facility] Temperature Oral (F) 98.5 F 06/13/2012 [facility] Systolic (mm Hg) 143 06/13/2012 [facility] Diastolic (mm Hg) 64 06/13/2012 [facility] Temperature Oral (F) 98.0 F 06/13/2012 [facility] Respitory Rate 18 06/13/2012 [facility] Diastolic (mm Hg) 86 06/13/2012 [facility] Heart Rate 87 06/13/2012 [facility] Systolic (mm Hg) 157 06/13/2012 [facility] Temperature Oral (F) 98.3 F 06/13/2012 [facility] Systolic (mm Hg) 136 06/13/2012 [facility] Diastolic (mm Hg) 78 06/13/2012 [facility] Heart Rate 74 06/13/2012 [facility] Respitory Rate 19 06/13/2012 [facility] Weight 76.364 06/12/2012 [facility] Height 157.48 cm 06/12/2012 [facility] Height 162.56 cm 12/16/2011 [facility] Weight 77.727 12/16/2011 [facility] Systolic (mm Hg) 149 12/15/2011 [facility] Heart Rate 80 12/15/2011 [facility] Respitory Rate 18 12/15/2011 [facility] Diastolic (mm Hg) 75 12/15/2011 [facility] Temperature Oral (F) 97.6 F 12/15/2011 [facility] Heart Rate 85 12/15/2011 [facility] Temperature Oral (F) 98.4 F 12/15/2011 [facility] Diastolic (mm Hg) 85 12/15/2011 [facility] Systolic (mm Hg) 151 12/15/2011 [facility] Respitory Rate 18 12/15/2011 [facility] Systolic (mm Hg) 158 12/15/2011 [facility] Diastolic (mm Hg) 81 12/15/2011 [facility] Heart Rate 87 12/15/2011 [facility] Temperature Oral (F) 98.3 F 12/15/2011 [facility] Respitory Rate 18 12/15/2011 [facility] Height 162.56 cm 12/12/2011 [facility] Weight 77.727 12/12/2011 [facility] Encounters Location Location Details Encounter Type Encounter Number Reason For Visit Attending Provider ADM Date DC Date Status Source [facility] [id number] SKY MELENDEZ 12/16/2011 12/16/2011 Discharged [facility] OU [id number] JASON TEJADA 06/12/2012 06/13/2012 Discharged [facility] [id number] EMILY QUILES 06/15/2012 06/15/2012 Discharged [facility] Procedures No Data Provided for This Section Assessment and Plan No Data Provided for This Section Plan of Care No Data Provided for This Section Social History No Data Provided for This Section Family History No Data Provided for This Section Advance Directives No Data Provided for This Section Functional Status No Data Provided for This Section
--- OUTSIDE RECORDS SUMMARY | 2019-01-31 19:45 | XMS REPORT | CCD ---
Author Author Auto Generated Organization [facility] Address Unknown Phone Unavailable Care Team Providers Care Property Staff Accountant Name Role Phone Kevin Hernandez CP Allergies, Adverse Reactions, Alerts Substance Reaction Status NKDA Active Problem List Condition Effective Dates Status Asthma Active Diabetic neuropathy Active DM - Diabetes mellitus Active HTN - Hypertension Active TN - Myocardial infarction Active PVD - Peripheral vascular disease Active Medications Medication Instructions Start Date End Date Status Protonix 40 mg, Route: IVP, Drug form: INJ, 12/11/2011 12/11/2011 Completed ONCE, Priority: STAT, Start date: 12/11/11 22:32:00, Stop date: 12/11/11 22:32:00 Vest 5/325 oral 1 tab, PO, Q4H, PRN, 20 tab, for 12/15/2011 Ordered tablet pain, Substitution Allowed, Maintenance, TAB Augmentin 500 mg 1 tab, PO, Q12H, 14 tab, 12/15/2011 Ordered oral tablet Substitution Allowed, Maintenance Saline Flush 0.9% 5 ml, Route: IVP, Drug Form: INJ, 12/11/2011 12/12/2011 Discontinued PRN, PRN Line Flush, Start date: 12/11/11 22:31:00, Duration: 24 hr, Stop date: 12/12/11 22:30:00 ondansetron 4 mg, 2 mL, Route: IVP, Drug form: 12/11/2011 12/11/2011 Completed INJ, ONCE, Priority: STAT, Start date: 12/11/11 22:31:00, Stop date: 12/11/11 22:31:00 morphine Sulfate 2 mg, 1 mL, Route: IVP, Drug form: 12/11/2011 12/11/2011 Completed INJ, ONCE, Priority: STAT, Start date: 12/11/11 22:31:00, Stop date: 12/11/11 22:31:00 morphine Sulfate 4 mg, Route: IVP, ONCE, Priority: 12/12/2011 12/12/2011 Completed STAT, Start date: 12/12/11 2:30:00, Stop date: 12/12/11 2:30:00 Protonix 40 mg, Route: IVP, Drug form: INJ, 12/12/2011 12/15/2011 Discontinued Before Dinner, Start date: 12/12/11 16:30:00, Duration: 30 day, Stop date: 01/10/12 16:30:00 insulin aspart 4 unit, 0.04 mL, Route: SUB-Q, Drug 12/12/2011 12/15/2011 Discontinued form: SOLN, TID-Before Meals, PRN Blood Glucose Results, Start date: 12/12/11 10:24:00, Duration: 30 day, Stop date: 01/11/12 10:23:00 insulin aspart 5 unit, 0.05 mL, Route: SUB-Q, Drug 12/12/2011 12/15/2011 Discontinued form: SOLN, TID-Before Meals, PRN Blood Glucose Results, Start date: 12/12/11 10:24:00, Duration: 30 day, Stop date: 01/11/12 10:23:00 insulin aspart 3 unit, 0.03 mL, Route: SUB-Q, Drug 12/12/2011 12/15/2011 Discontinued form: SOLN, TID-Before Meals, PRN Blood Glucose Results, Start date: 12/12/11 10:24:00, Duration: 30 day, Stop date: 01/11/12 10:23:00 insulin aspart 1 unit, 0.01 mL, Route: SUB-Q, Drug 12/12/2011 12/15/2011 Discontinued form: SOLN, TID-Before Meals, PRN Blood Glucose Results, Start date: 12/12/11 10:24:00, Duration: 30 day, Stop date: 01/11/12 10:23:00 insulin aspart 2 unit, 0.02 mL, Route: SUB-Q, Drug 12/12/2011 12/15/2011 Discontinued form: SOLN, TID-Before Meals, PRN Blood Glucose Results, Start date: 12/12/11 10:24:00, Duration: 30 day, Stop date: 01/11/12 10:23:00 Dextrose 50% Syringe 25 gm, 50 mL, Route: IVP, Drug 12/12/2011 12/15/2011 Discontinued Form: INJ, PRN, PRN Blood Glucose Results, Start date: 12/12/11 10:24:00, Duration: 30 day, Stop date: 01/11/12 10:23:00 Dextrose 50% Syringe 12.5 gm, 25 mL, Route: IVP, Drug 12/12/2011 12/15/2011 Discontinued Form: INJ, PRN, PRN Blood Glucose Results, Start date: 12/12/11 10:24:00, Duration: 30 day, Stop date: 01/11/12 10:23:00 glucagon 1 mg, Route: IM, Drug form: 12/12/2011 12/15/2011 Discontinued PDR/INJ, PRN, PRN Blood Glucose Results, Start date: 12/12/11 10:24:00, Duration: 30 day, Stop date: 01/11/12 10:23:00 Zosyn 3.375 gm, 100 mL, Route: IVPB, Drug 12/12/2011 12/15/2011 Discontinued form: PDR/INJ, [id number], Start date: 12/12/11 9:00:00, Duration: 30 day, Stop date: 01/11/12 3:00:00 Invanz 1 gm, Route: IVPB, ONCALL, Start 12/13/2011 12/15/2011 Completed date: 12/13/11 13:00:00, Duration: 1 doses or times pneumococcal 0.5 ml, Route: IM, Drug Form: INJ, 12/12/2011 12/15/2011 Completed 23-valent vaccine Start date: 12/12/11 9:00:00, Stop date: 12/12/11 9:00:00 pneumococcal 0.5 ml, Route: IM, Drug Form: INJ, 12/12/2011 12/12/2011 Completed 23-valent vaccine Daily, Start date: 12/12/11 9:00:00, Duration: 1 doses or times, Stop date: 12/12/11 9:00:00 nitroglycerin 0.4 mg 0.4 mg, 1 tab, Route: SL, Drug 12/12/2011 12/13/2011 Discontinued sublingual tablet form: TAB, Q5Min, PRN Chest Pain, Start date: 12/12/11 3:14:00, Duration: 30 day, Stop date: 01/11/12 3:13:00 atropine 0.5 mg, 5 mL, Route: IVP, Drug 12/12/2011 12/13/2011 Discontinued form: INJ, PRN, PRN Bradycardia, Start date: 12/12/11 3:14:00, Duration: 30 day, Stop date: 01/11/12 3:13:00 Pneumovax 23 0.5 ml, Route: IM, Drug Form: INJ, 12/15/2011 12/15/2011 Completed ONCE, Start date: 12/15/11 12:00:00, Stop date: 12/15/11 12:00:00 NS (Bolus) IV 1000 1,000 mL, Rate: 1,000 ml/hr, Infuse 12/12/2011 12/12/2011 Completed mL over: 1 hr, Route: IV, Dosing Weight 77.727 kg, Total Volume: 1,000, Priority: STAT, Start date: 12/12/11 1:01:00, Duration: 1 doses or times, Stop date: 12/12/11 2:00:00, Bolus Dose Bolus Dose Insulin regular 10 unit, Route: IVP, ONCE, Start 12/14/2011 12/14/2011 Completed date: 12/14/11 14:17:00, Stop date: 12/14/11 14:17:00 pneumococcal 0.5 ml, Route: IM, Drug Form: INJ, 06/30/2007 06/30/2007 Completed 23-valent vaccine ONCALL, Start date: 06/30/07 1:00:00, Duration: 1 doses or times, Stop date: 07/01/07 0:00:00 Rocephin 1 gm, Route: IVPB, [id number], Start 12/13/2011 12/12/2011 Canceled date: 12/13/11 1:00:00, Duration: 30 day, Stop date: 01/11/12 1:00:00 Vasotec 1.25 mg, 1 mL, Route: IVP, Drug 12/12/2011 12/15/2011 Discontinued form: INJ, Q6H, Start date: 12/12/11 12:00:00, Duration: 30 day, Stop date: 01/11/12 6:00:00 Dextrose 50% Syringe 12.5 gm, 25 mL, Route: IVP, Drug 12/12/2011 12/12/2011 Discontinued Form: INJ, PRN, PRN Blood Glucose Results, Start date: 12/12/11 3:10:00, Duration: 30 day, Stop date: 01/11/12 3:09:00 Dextrose 50% Syringe 25 gm, 50 mL, Route: IVP, Drug 12/12/2011 12/12/2011 Discontinued Form: INJ, PRN, PRN Blood Glucose Results, Start date: 12/12/11 3:10:00, Duration: 30 day, Stop date: 01/11/12 3:09:00 glucagon 1 mg, Route: IM, Drug form: 12/12/2011 12/12/2011 Discontinued PDR/INJ, PRN, PRN Blood Glucose Results, Start date: 12/12/11 3:10:00, Duration: 30 day, Stop date: 01/11/12 3:09:00 Protonix 40 mg, 1 pkt, Route: GT, Drug form: 12/12/2011 12/12/2011 Canceled GRAN/REC, Before Dinner, Start date: 12/12/11 16:30:00, Duration: 30 day, Stop date: 01/10/12 16:30:00 Tylenol 1,000 mg, 2 tab, Route: PO, Drug 12/11/2011 12/11/2011 Completed form: TAB, ONCE, Priority: STAT, Start date: 12/11/11 21:57:00, Stop date: 12/11/11 21:57:00 Saline Flush 0.9% 5 ml, Route: IVP, Drug Form: INJ, 12/12/2011 12/15/2011 Discontinued PRN, PRN Line Flush, Start date: 12/12/11 3:10:00, Duration: 30 day, Stop date: 01/11/12 3:09:00 Sodium Chloride 0.9% 1,000 mL, Rate: 75 ml/hr, Infuse 12/12/2011 12/15/2011 Discontinued IV 1,000 mL 1,000 mL over: 13.3 hr, Route: IV, Dosing Weight 77.727 kg, Total Volume: 1,000, Start date: 12/12/11 3:10:00, Duration: 30 day, Stop date: 01/11/12 3:09:00 ondansetron 4 mg, 2 mL, Route: IVP, Drug form: 12/12/2011 12/15/2011 Discontinued INJ, Q6H, PRN Nausea & Vomiting, Start date: 12/12/11 3:10:00, Duration: 30 day, Stop date: 01/11/12 3:09:00 morphine Sulfate 4 mg, 2 mL, Route: IVP, Drug form: 12/12/2011 12/12/2011 Discontinued INJ, Q4H, PRN Pain Score 7-10, Start date: 12/12/11 3:10:00, Duration: 30 day, Stop date: 01/11/12 3:09:00 Rocephin 1 gm, Route: IVPB, ONCE, Start 12/12/2011 12/12/2011 Completed date: 12/12/11 0:05:00, Stop date: 12/12/11 0:05:00 ondansetron 4 mg, 2 mL, Route: IVP, Drug form: 12/14/2011 12/14/2011 Discontinued INJ, ONCE, PRN Nausea & Vomiting, Start date: 12/14/11 14:17:00 flumazenil 0.2 mg, 2 mL, Route: IVP, Drug 12/14/2011 12/14/2011 Discontinued form: INJ, PRN, PRN Benzodiazepine Reversal, Initial dose, Start date: 12/14/11 14:17:00, Duration: 30 day, Stop date: 01/13/12 14:16:00 naloxone 0.04 mg, 0.1 mL, Route: IVP, Drug 12/14/2011 12/14/2011 Discontinued form: INJ, Q2MIN, PRN Narcotic Reversal, Start date: 12/14/11 14:17:00, Duration: 8 doses or times, Stop date: Limited # of times morphine Sulfate 2 mg, 1 mL, Route: IVP, Drug form: 12/14/2011 12/14/2011 Discontinued INJ, Q5Min, PRN Pain Score 4-6, Start date: 12/14/11 14:17:00, Duration: 8 doses or times, Stop date: Limited # of times meperidine 12.5 mg, 0.25 mL, Route: IVP, Drug 12/14/2011 12/14/2011 Discontinued form: INJ, Q30Min, PRN Other -See Comment, For shivering, Start date: 12/14/11 14:17:00, Duration: 2 doses or times, Stop date: Limited # of times Insulin regular 10 unit, Route: SUB-Q, ONCE, 12/12/2011 12/12/2011 Completed Priority: STAT, Start date: 12/12/11 0:03:00, Stop date: 12/12/11 0:03:00 morphine Sulfate 4 mg, Route: IVP, ONCE, Start date: 12/12/2011 12/12/2011 Completed 12/12/11 0:03:00, Stop date: 12/12/11 0:03:00 Dilaudid 2 mg, 1 mL, Route: IV, Drug form: 12/12/2011 12/15/2011 Discontinued INJ, Q3H, PRN Pain, Start date: 12/12/11 8:53:00, Duration: 30 day, Stop date: 01/11/12 8:52:00 Immunizations Vaccine Date Status pneumococcal 23-valent vaccine1 06/30/2007 Auth (Verified) pneumococcal 23-valent vaccine 12/15/2011 Auth (Verified) pneumococcal 23-valent vaccine 12/15/2011 Not Done 1Result Comment: lot # [id number], exp. , [facility] Vital Signs Most recent to oldest [Reference Range]: 1 2 3 Height 162.56 cm (12/11/2011 20:28:00) Temperature Oral [96.4-99.1 DegF] 97.6 DegF (12/15/2011 12:02:00) 98.4 DegF (12/15/2011 07:57:00) 98.3 DegF (12/15/2011 05:19:00) Systolic Blood Pressure [90-140 mmHg] 149 mmHg *HI* (12/15/2011 12:02:00) 151 mmHg *HI* (12/15/2011 07:57:00) 158 mmHg *HI* (12/15/2011 05:19:00) Diastolic Blood Pressure [60-90 mmHg] 75 mmHg (12/15/2011 12:02:00) 85 mmHg (12/15/2011 07:57:00) 81 mmHg (12/15/2011 05:19:00) Respiratory Rate [14-20 BRMIN] 18 BRMIN (12/15/2011 12:02:00) 18 BRMIN (12/15/2011 07:57:00) 18 BRMIN (12/15/2011 05:19:00) Peripheral Pulse Rate [60-100 bpm] 80 bpm (12/15/2011 12:02:00) 85 bpm (12/15/2011 07:57:00) 87 bpm (12/15/2011 05:19:00) Weight 77.727 kg (12/11/2011 20:28:00) Results BEDSIDE GLUCOSE TESTING Most recent to oldest [Reference Range]: 1 2 3 Gluc POC Lifscn [70-99 mg/dL] 321 mg/dL 1 *HI* (12/15/2011 11:47:00) 287 mg/dL 2 *HI* (12/15/2011 05:46:00) 249 mg/dL 3 *HI* (12/14/2011 21:08:00) Comment1 Notify RN/MD *NA* (12/15/2011 11:47:00) Notify RN/MD *NA* (12/15/2011 05:46:00) Notify RN/MD *NA* (12/14/2011 21:08:00) 1Interpretive Data: Upper Reportable Limit: 200 mg/dL. 2Interpretive Data: Upper Reportable Limit: 200 mg/dL. 3Interpretive Data: Upper Reportable Limit: 200 mg/dL. URINALYSIS Most recent to oldest [Reference Range]: 1 2 3 UA Turbidity [Clear] Marked *ABN* (12/11/2011 22:15:00) UA Color [Yellow] Yellow *NA* (12/11/2011 22:15:00) UA pH [5.0-8.0] 5.0 (12/11/2011 22:15:00) UA Spec Grav [<=1.030] 1.024 (12/11/2011 22:15:00) UA Glucose [Negative mg/dL] 500 mg/dL *ABN* (12/11/2011 22:15:00) UA Blood [Negative] Small *ABN* (12/11/2011 22:15:00) UA Ketones [Negative mg/dL] Negative mg/dL *NA* (12/11/2011 22:15:00) UA Protein [Negative mg/dL] 100 mg/dL *ABN* (12/11/2011 22:15:00) UA Urobilinogen [0.1-1.0 mg/dL] <=1.0 mg/dL *NA* (12/11/2011 22:15:00) UA Bili [Negative] Negative *NA* (12/11/2011 22:15:00) UA Leuk Est [Negative] Small *ABN* (12/11/2011 22:15:00) UA Nitrite [Negative] Negative (12/11/2011 22:15:00) UA WBC [0-5 /HPF] 18 /HPF *HI* (12/11/2011 22:15:00) UA RBC [0-2 /HPF] 1 /HPF (12/11/2011 22:15:00) UA Sq Epi [Few /LPF] Occasional /LPF *NA* (12/11/2011 22:15:00) CHEMISTRY Most recent to oldest [Reference Range]: 1 2 3 Sodium Lvl [135-145 mEq/L] 142 mEq/L (12/14/2011 05:18:00) 138 mEq/L (12/13/2011 04:20:00) 133 mEq/L *LOW* (12/11/2011 22:30:00) Potassium Lvl [3.5-5.1 mEq/L] 3.8 mEq/L (12/14/2011 05:18:00) 3.7 mEq/L (12/13/2011 04:20:00) 4.3 mEq/L (12/11/2011 22:30:00) Chloride Lvl [95-109 mEq/L] 105 mEq/L (12/14/2011 05:18:00) 101 mEq/L (12/13/2011 04:20:00) 96 mEq/L (12/11/2011 22:30:00) CO2 [24-32 mEq/L] 26 mEq/L (12/14/2011 05:18:00) 25 mEq/L (12/13/2011 04:20:00) 25 mEq/L (12/11/2011 22:30:00) AGAP [10.0-20.0 mEq/L] 14.8 mEq/L (12/14/2011 05:18:00) 15.7 mEq/L (12/13/2011 04:20:00) 16.3 mEq/L (12/11/2011 22:30:00) Creatinine Lvl [0.5-1.4 mg/dL] 1.0 mg/dL (12/14/2011 05:18:00) 1.3 mg/dL (12/13/2011 04:20:00) 1.2 mg/dL (12/11/2011 22:30:00) BUN [7-22 mg/dL] 11 mg/dL (12/14/2011 05:18:00) 11 mg/dL (12/13/2011 04:20:00) 20 mg/dL (12/11/2011 22:30:00) B/C Ratio [6-25] 11 (12/14/2011 05:18:00) 8 (12/13/2011 04:20:00) 17 (12/11/2011 22:30:00) Glucose Lvl [70-99 mg/dL] 239 mg/dL 4 *HI* (12/14/2011 05:18:00) 256 mg/dL 5 *HI* (12/13/2011 04:20:00) 461 mg/dL 6, 7 *CRIT* (12/11/2011 22:30:00) Total Protein [6.4-8.4 g/dL] 6.5 g/dL (12/15/2011 04:05:00) 6.1 g/dL *LOW* (12/14/2011 05:18:00) 6.9 g/dL (12/13/2011 04:20:00) Albumin Lvl [3.5-5.0 g/dL] 2.5 g/dL *LOW* (12/15/2011 04:05:00) 2.7 g/dL *LOW* (12/14/2011 05:18:00) 2.6 g/dL *LOW* (12/13/2011 04:20:00) Globulin [2.0-4.0 g/dL] 4.0 g/dL (12/15/2011 04:05:00) 3.4 g/dL (12/14/2011 05:18:00) 4.3 g/dL *HI* (12/13/2011 04:20:00) A/G Ratio [0.7-1.6] 0.6 *LOW* (12/15/2011 04:05:00) 0.8 (12/14/2011 05:18:00) 0.6 *LOW* (12/13/2011 04:20:00) Calcium Lvl [8.5-10.5 mg/dL] 8.8 mg/dL (12/14/2011 05:18:00) 8.6 mg/dL (12/13/2011 04:20:00) 8.7 mg/dL (12/11/2011 22:30:00) ALT [0-65 U/L] 42 U/L (12/15/2011 04:05:00) 24 U/L (12/14/2011 05:18:00) 31 U/L (12/13/2011 04:20:00) AST [0-37 U/L] 50 U/L *HI* (12/15/2011 04:05:00) 15 U/L (12/14/2011 05:18:00) 30 U/L (12/13/2011 04:20:00) Alk Phos [39-136 U/L] 78 U/L (12/15/2011 04:05:00) 81 U/L (12/14/2011 05:18:00) 92 U/L (12/13/2011 04:20:00) Bili Total [0.2-1.3 mg/dL] 0.4 mg/dL (12/15/2011 04:05:00) 0.4 mg/dL (12/14/2011 05:18:00) 0.5 mg/dL (12/13/2011 04:20:00) Bili Direct [0.0-0.3 mg/dL] 0.1 mg/dL (12/15/2011 04:05:00) Bili Indirect [0.0-1.0 mg/dL] 0.3 mg/dL (12/15/2011 04:05:00) Amylase Lvl [25-115 U/L] 21 U/L *LOW* (12/11/2011 22:30:00) Lipase Lvl [73-393 U/L] 191 U/L (12/11/2011 22:30:00) Total CK [12-191 U/L] 113 U/L (12/12/2011 08:38:00) 171 U/L (12/11/2011 22:30:00) CK MB [0.5-3.6 ng/mL] 5.4 ng/mL *HI* (12/12/2011 08:38:00) 8.0 ng/mL *HI* (12/11/2011 22:30:00) CK MB Index [0.0-2.5] 4.8 *HI* (12/12/2011 08:38:00) 4.7 *HI* (12/11/2011 22:30:00) Troponin-I [0.00-0.40 ng/mL] <0.02 ng/mL (12/12/2011 08:38:00) <0.02 ng/mL (12/11/2011 22:30:00) 4Interpretive Data: Adult reference range values reflect the clinical guidelinesof the [place] [employer]. 5Interpretive Data: Adult reference range values reflect the clinical guidelinesof the [place] [employer]. 6Result Comment: Critical Result(s) called to marty at 12/11/2011 23:46 byemw. Read back OK. 7Interpretive Data: Adult reference range values reflect the clinical guidelinesof the [place] [employer]. HEMATOLOGY Most recent to oldest [Reference Range]: 1 2 3 WBC [3.7-10.4 K/CMM] 13.4 K/CMM *HI* (12/15/2011 04:05:00) 12.4 K/CMM *HI* (12/14/2011 05:18:00) 13.9 K/CMM *HI* (12/13/2011 04:20:00) RBC [4.20-5.40 M/CMM] 3.69 M/CMM *LOW* (12/15/2011 04:05:00) 3.73 M/CMM *LOW* (12/14/2011 05:18:00) 3.90 M/CMM *LOW* (12/13/2011 04:20:00) Hgb [12.0-16.0 g/dL] 10.7 g/dL *LOW* (12/15/2011 04:05:00) 10.9 g/dL *LOW* (12/14/2011 05:18:00) 11.4 g/dL *LOW* (12/13/2011 04:20:00) Hct [36.0-48.0 %] 31.9 % *LOW* (12/15/2011 04:05:00) 32.0 % *LOW* (12/14/2011 05:18:00) 33.5 % *LOW* (12/13/2011 04:20:00) MCV [81.0-99.0 fL] 86.4 fL (12/15/2011 04:05:00) 85.9 fL (12/14/2011 05:18:00) 85.7 fL (12/13/2011 04:20:00) MCH [27.0-31.0 pg] 28.9 pg (12/15/2011 04:05:00) 29.2 pg (12/14/2011 05:18:00) 29.1 pg (12/13/2011 04:20:00) MCHC [32.0-36.0 g/dL] 33.4 g/dL (12/15/2011 04:05:00) 34.0 g/dL (12/14/2011 05:18:00) 34.0 g/dL (12/13/2011 04:20:00) RDW [11.5-14.5 %] 13.7 % (12/15/2011 04:05:00) 13.3 % (12/14/2011 05:18:00) 13.3 % (12/13/2011 04:20:00) Platelet [133-450 K/CMM] 248 K/CMM (12/15/2011 04:05:00) 254 K/CMM (12/14/2011 05:18:00) 282 K/CMM (12/13/2011 04:20:00) MPV [7.4-10.4 fL] 11.8 fL *HI* (12/15/2011 04:05:00) 11.0 fL *HI* (12/14/2011 05:18:00) 11.6 fL *HI* (12/13/2011 04:20:00) Segs [45.0-75.0 %] 63.8 % (12/15/2011 04:05:00) 57.8 % (12/14/2011 05:18:00) 66.1 % (12/13/2011 04:20:00) Lymphocytes [20.0-40.0 %] 26.7 % (12/15/2011 04:05:00) 33.1 % (12/14/2011 05:18:00) 26.2 % (12/13/2011 04:20:00) Monocytes [2.0-12.0 %] 7.5 % (12/15/2011 04:05:00) 5.7 % (12/14/2011 05:18:00) 5.1 % (12/13/2011 04:20:00) Eosinophils [0.0-4.0 %] 1.6 % (12/15/2011 04:05:00) 3.0 % (12/14/2011 05:18:00) 2.2 % (12/13/2011 04:20:00) Basophils [0.0-1.0 %] 0.4 % (12/15/2011 04:05:00) 0.4 % (12/14/2011 05:18:00) 0.4 % (12/13/2011 04:20:00) Segs-Bands # [1.5-8.1 K/CMM] 8.6 K/CMM *HI* (12/15/2011 04:05:00) 7.2 K/CMM (12/14/2011 05:18:00) 9.2 K/CMM *HI* (12/13/2011 04:20:00) Lymphocytes # [1.0-5.5 K/CMM] 3.6 K/CMM (12/15/2011 04:05:00) 4.1 K/CMM (12/14/2011 05:18:00) 3.7 K/CMM (12/13/2011 04:20:00) Monocytes # [0.0-0.8 K/CMM] 1.0 K/CMM *HI* (12/15/2011 04:05:00) 0.7 K/CMM (12/14/2011 05:18:00) 0.7 K/CMM (12/13/2011 04:20:00) Eosinophils # [0.0-0.5 K/CMM] 0.2 K/CMM (12/15/2011 04:05:00) 0.4 K/CMM (12/14/2011 05:18:00) 0.3 K/CMM (12/13/2011 04:20:00) Basophils # [0.0-0.2 K/CMM] 0.1 K/CMM (12/15/2011 04:05:00) 0.1 K/CMM (12/14/2011 05:18:00) 0.1 K/CMM (12/13/2011 04:20:00) PT [12.0-14.7 seconds] 12.2 seconds (12/12/2011 09:41:00) INR [0.85-1.17] 0.90 8 (12/12/2011 09:41:00) PTT [22.9-35.8 seconds] 26.9 seconds 9 (12/12/2011 09:41:00) 8Interpretive Data: RECOMMENDED RANGES FOR PROTIME INR: 2.0-3.0 for most medical and surgical thromboembolic states. 2.5-3.5 for artificial heart valves and recurrent embolism.INR SHOULD BE USED ONLY FOR PATIENTS ON STABLE ANTICOAGULANT THERAPY. 9Interpretive Data: Heparin Therapeutic Range: 57 - 92 Seconds
--- OUTSIDE RECORDS SUMMARY | 2019-01-31 19:47 | XMS REPORT | CCD ---
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 Name Role Phone Sergio Lugo CP Allergies, Adverse Reactions, Alerts Substance Reaction Status NKDA Active Problem List Condition Effective Dates Status Asthma Active Diabetic neuropathy Active DM - Diabetes mellitus Active HTN - Hypertension Active [place] - Myocardial infarction Active PVD - Peripheral vascular disease Active Medications Medication Instructions Start Date End Date Status Augmentin 875 mg 1 tab, PO, Q12H, 20 tab, 12/16/2011 12/26/2011 Ordered oral tablet Substitution Allowed, Maintenance, TAB ibuprofen 400 mg 400 mg, PO, Q6H, PRN, 15 tab, Pain, 12/16/2011 Ordered oral tablet Substitution Allowed Zosyn 3.375 gm, 100 mL, Route: IVPB, Drug 12/16/2011 12/16/2011 Completed form: PDR/INJ, ONCE, Priority: STAT, Start date: 12/16/11 18:40:00, Stop date: 12/16/11 18:40:00 pneumococcal 0.5 ml, Route: IM, Drug Form: INJ, 12/12/2011 12/15/2011 Completed 23-valent vaccine Start date: 12/12/11 9:00:00, Stop date: 12/12/11 9:00:00 Pneumovax 23 0.5 ml, Route: IM, Drug Form: INJ, 12/15/2011 12/15/2011 Completed ONCE, Start date: 12/15/11 12:00:00, Stop date: 12/15/11 12:00:00 pneumococcal 0.5 ml, Route: IM, Drug Form: INJ, 06/30/2007 06/30/2007 Completed 23-valent vaccine ONCALL, Start date: 06/30/07 1:00:00, Duration: 1 doses or times, Stop date: 07/01/07 0:00:00 ondansetron 4 mg, 2 mL, Route: IVP, Drug form: 12/16/2011 12/16/2011 Completed INJ, ONCE, Priority: STAT, Start date: 12/16/11 13:52:00, Stop date: 12/16/11 13:52:00 morphine Sulfate 4 mg, 2 mL, Route: IVP, Drug form: 12/16/2011 12/16/2011 Completed INJ, ONCE, Priority: STAT, Start date: 12/16/11 13:52:00, Stop date: 12/16/11 13:52:00 Sodium Chloride 0.9% 1,000 mL, Rate: 1,000 ml/hr, Infuse 12/16/2011 12/16/2011 Completed (Bolus) IV 1,000 mL over: 1 hr, Route: IV, Dosing Weight 77.7 kg, Total Volume: 1,000, Bolus Dose, Priority: STAT, Start date: 12/16/11 13:52:00, Duration: 1 doses or times, Stop date: 12/16/11 14:51:00 Immunizations Vaccine Date Status pneumococcal 23-valent vaccine1 06/30/2007 Auth (Verified) pneumococcal 23-valent vaccine 12/15/2011 Auth (Verified) pneumococcal 23-valent vaccine 12/15/2011 Not Done 1Result Comment: lot # [id number], exp. , [facility] Vital Signs Most recent to oldest [Reference Range]: 1 Height 162.56 cm (12/16/2011 13:07:00) Weight 77.727 kg (12/16/2011 13:07:00) Results CHEMISTRY Most recent to oldest [Reference Range]: 1 Sodium Lvl [135-145 mEq/L] 139 mEq/L (12/16/2011 14:32:00) Potassium Lvl [3.5-5.1 mEq/L] 3.5 mEq/L (12/16/2011 14:32:00) Chloride Lvl [95-109 mEq/L] 102 mEq/L (12/16/2011 14:32:00) CO2 [24-32 mEq/L] 25 mEq/L (12/16/2011 14:32:00) AGAP [10.0-20.0 mEq/L] 15.5 mEq/L (12/16/2011 14:32:00) Creatinine Lvl [0.5-1.4 mg/dL] 2.2 mg/dL *HI* (12/16/2011 14:32:00) BUN [7-22 mg/dL] 19 mg/dL (12/16/2011 14:32:00) B/C Ratio [6-25] 9 (12/16/2011 14:32:00) Glucose Lvl [70-99 mg/dL] 340 mg/dL 1 *HI* (12/16/2011 14:32:00) Total Protein [6.4-8.4 g/dL] 7.1 g/dL (12/16/2011 14:32:00) Albumin Lvl [3.5-5.0 g/dL] 2.7 g/dL *LOW* (12/16/2011 14:32:00) Globulin [2.0-4.0 g/dL] 4.4 g/dL *HI* (12/16/2011 14:32:00) A/G Ratio [0.7-1.6] 0.6 *LOW* (12/16/2011 14:32:00) Calcium Lvl [8.5-10.5 mg/dL] 9.4 mg/dL (12/16/2011 14:32:00) ALT [0-65 U/L] 44 U/L (12/16/2011 14:32:00) AST [0-37 U/L] 30 U/L (12/16/2011 14:32:00) Alk Phos [39-136 U/L] 100 U/L (12/16/2011 14:32:00) Bili Total [0.2-1.3 mg/dL] 0.6 mg/dL (12/16/2011 14:32:00) Amylase Lvl [25-115 U/L] 31 U/L (12/16/2011 14:32:00) Lipase Lvl [73-393 U/L] 120 U/L (12/16/2011 14:32:00) Total CK [12-191 U/L] 164 U/L (12/16/2011 14:32:00) CK MB [0.5-3.6 ng/mL] 3.7 ng/mL *HI* (12/16/2011 14:32:00) CK MB Index [0.0-2.5] 2.3 (12/16/2011 14:32:00) Troponin-I [0.00-0.40 ng/mL] <0.02 ng/mL (12/16/2011 14:32:00) U Preg [Negative] Negative (12/16/2011 15:36:00) 1Interpretive Data: Adult reference range values reflect the clinical guidelinesof the [place] [employer]. HEMATOLOGY Most recent to oldest [Reference Range]: 1 WBC [3.7-10.4 K/CMM] 15.8 K/CMM *HI* (12/16/2011 14:32:00) RBC [4.20-5.40 M/CMM] 3.79 M/CMM *LOW* (12/16/2011 14:32:00) Hgb [12.0-16.0 g/dL] 10.9 g/dL *LOW* (12/16/2011 14:32:00) Hct [36.0-48.0 %] 32.8 % *LOW* (12/16/2011 14:32:00) MCV [81.0-99.0 fL] 86.6 fL (12/16/2011 14:32:00) MCH [27.0-31.0 pg] 28.8 pg (12/16/2011 14:32:00) MCHC [32.0-36.0 g/dL] 33.3 g/dL (12/16/2011 14:32:00) RDW [11.5-14.5 %] 13.4 % (12/16/2011 14:32:00) Platelet [133-450 K/CMM] 245 K/CMM (12/16/2011 14:32:00) MPV [7.4-10.4 fL] 11.7 fL *HI* (12/16/2011 14:32:00) Segs [45.0-75.0 %] 76.9 % *HI* (12/16/2011 14:32:00) Lymphocytes [20.0-40.0 %] 16.6 % *LOW* (12/16/2011 14:32:00) Monocytes [2.0-12.0 %] 5.6 % (12/16/2011 14:32:00) Eosinophils [0.0-4.0 %] 0.6 % (12/16/2011 14:32:00) Basophils [0.0-1.0 %] 0.3 % (12/16/2011 14:32:00) Segs-Bands # [1.5-8.1 K/CMM] 12.2 K/CMM *HI* (12/16/2011 14:32:00) Lymphocytes # [1.0-5.5 K/CMM] 2.6 K/CMM (12/16/2011 14:32:00) Monocytes # [0.0-0.8 K/CMM] 0.9 K/CMM *HI* (12/16/2011 14:32:00) Eosinophils # [0.0-0.5 K/CMM] 0.1 K/CMM (12/16/2011 14:32:00) Basophils # [0.0-0.2 K/CMM] 0.1 K/CMM (12/16/2011 14:32:00) PT [12.0-14.7 seconds] 13.4 seconds (12/16/2011 14:32:00) INR [0.85-1.17] 1.02 2 (12/16/2011 14:32:00) PTT [22.9-35.8 seconds] 27.6 seconds 3 (12/16/2011 14:32:00) 2Interpretive Data: RECOMMENDED RANGES FOR PROTIME INR: 2.0-3.0 for most medical and surgical thromboembolic states. 2.5-3.5 for artificial heart valves and recurrent embolism.INR SHOULD BE USED ONLY FOR PATIENTS ON STABLE ANTICOAGULANT THERAPY. 3Interpretive Data: Heparin Therapeutic Range: 57 - 92 Seconds Microbiology Reports PROCEDURE:Culture: Blood STATUS: In Progress BODY SITE: Hand L COLLECTED DATE/TIME: 12/16/2011 14:40:00 SOURCE: Blood FREE TEXT SOURCE: PRELIMINARY REPORTS Preliminary Report No Growth; Holding Preliminary Report No Growth At 1 Day PROCEDURE:Culture: Blood STATUS: In Progress BODY SITE: Arm R COLLECTED DATE/TIME: 12/16/2011 14:32:00 SOURCE: Blood FREE TEXT SOURCE: PRELIMINARY REPORTS Preliminary Report No Growth At 1 Day Preliminary Report No Growth; Holding
--- OUTSIDE RECORDS SUMMARY | 2019-01-31 19:47 | XMS REPORT | CCD ---
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 Name Role Phone Romero Mccoy CP Allergies, Adverse Reactions, Alerts Substance Reaction Status morphine Active Problem List Condition Effective Dates Status Asthma Active Diabetic neuropathy Active DM - Diabetes mellitus Active HTN - Hypertension Active [place] - Myocardial infarction Active P[place] - Peripheral vascular disease Active Medications Medication Instructions Start Date End Date Status ondansetron 4 mg, 2 mL, Route: IVP, Drug form: 06/15/2012 06/15/2012 Completed INJ, ONCE, Dosing Weight 76.364, kg, Priority: STAT, Start date: 06/15/12 22:18:00, Stop date: 06/15/12 22:18:00 hydromorphone 1 mg, 1 mL, Route: IVP, Drug form: 06/15/2012 06/15/2012 Completed SOLN, ONCE, Dosing Weight 76.364, kg, Priority: STAT, Start date: 06/15/12 22:18:00, Stop date: 06/15/12 22:18:00 Saline Flush 0.9% 5 mL, Route: IVP, Drug Form: INJ, 06/15/2012 06/16/2012 Discontinued Dosing Weight 76.364, kg, PRN, PRN Line Flush, Start date: 06/15/12 22:18:00, Duration: 24 hr, Stop date: 06/16/12 22:17:00 pneumococcal 0.5 ml, Route: IM, Drug Form: INJ, 12/12/2011 12/15/2011 Completed 23-valent vaccine Start date: 12/12/11 9:00:00, Stop date: 12/12/11 9:00:00 Levaquin 750 mg, Route: IV, ONCE, Dosing 06/16/2012 06/16/2012 Completed Weight 76.364, kg, Start date: 06/16/12 1:01:00, Stop date: 06/16/12 1:01:00 Phenergan 25 mg oral 25 mg, 1 tab, PO, Q4H, PRN, 15 tab, 06/16/2012 Ordered tablet Nausea, Substitution Allowed Vicodin 5/500 oral 1-2 tablets, PO, Q4-6H, PRN, 30 06/16/2012 06/21/2012 Ordered tablet tab, for Pain, Substitution Allowed, Maintenance Cipro 500 mg oral 500 mg, 1 tab, PO, Q12H, 28 tab, 06/16/2012 06/30/2012 Ordered tablet Substitution Allowed, TAB Pneumovax 23 0.5 ml, Route: IM, Drug Form: INJ, 12/15/2011 12/15/2011 Completed ONCE, Start date: 12/15/11 12:00:00, Stop date: 12/15/11 12:00:00 ondansetron 4 mg, Route: IVP, Drug form: INJ, 06/16/2012 06/16/2012 Completed ONCE, Dosing Weight 76.364, kg, Priority: STAT, Start date: 06/16/12 3:07:00, Stop date: 06/16/12 3:07:00 ketorolac 30 mg, Route: IVP, Drug form: INJ, 06/16/2012 06/16/2012 Completed ONCE, Dosing Weight 76.364, kg, Priority: STAT, Start date: 06/16/12 3:06:00, Stop date: 06/16/12 3:06:00 pneumococcal 0.5 ml, Route: IM, Drug Form: INJ, 06/30/2007 06/30/2007 Completed 23-valent vaccine ONCALL, Start date: 06/30/07 1:00:00, Duration: 1 doses or times, Stop date: 07/01/07 0:00:00 Dilaudid 1 mg, Route: IV, ONCE, Dosing 06/16/2012 06/16/2012 Completed Weight 76.364, kg, Priority: STAT, Start date: 06/16/12 0:26:00, Stop date: 06/16/12 0:26:00 Insulin regular 6 unit, Route: SUB-Q, ONCE, Dosing 06/16/2012 06/16/2012 Completed Weight 76.364, kg, Start date: 06/16/12 1:36:00, Stop date: 06/16/12 1:36:00 clonidine 0.2 mg 1 tab, Route: PO, ONCE, Dosing 06/16/2012 06/16/2012 Completed oral tablet Weight 76.364, kg, Start date: 06/16/12 1:36:00, Stop date: 06/16/12 1:36:00 hydrALAZINE 20 mg, Route: IVP, ONCE, Dosing 06/16/2012 06/16/2012 Completed Weight 76.364, kg, Priority: STAT, Start date: 06/16/12 2:33:00, Stop date: 06/16/12 2:33:00 Immunizations Vaccine Date Status pneumococcal 23-valent vaccine1 06/30/2007 Auth (Verified) pneumococcal 23-valent vaccine 12/15/2011 Auth (Verified) pneumococcal 23-valent vaccine 12/15/2011 Not Done 1Result Comment: lot # [id number], exp. , [facility] Vital Signs Most recent to oldest [Reference Range]: 1 Height 162.56 cm (06/15/2012 22:02:00) Results URINALYSIS Most recent to oldest [Reference Range]: 1 UA Turbidity [Clear] Marked *ABN* (06/15/2012 23:10:00) UA Color Ltyellow *NA* (06/15/2012 23:10:00) UA pH [5.0-8.0] 7.0 (06/15/2012 23:10:00) UA Spec Grav [<=1.030] 1.013 (06/15/2012 23:10:00) UA Glucose [Negative mg/dL] 500 mg/dL *ABN* (06/15/2012 23:10:00) UA Blood [Negative] Small *ABN* (06/15/2012 23:10:00) UA Ketones [Negative mg/dL] Negative mg/dL *NA* (06/15/2012 23:10:00) UA Protein [Negative mg/dL] 100 mg/dL *ABN* (06/15/2012 23:10:00) UA Urobilinogen [0.1-1.0 mg/dL] <=1.0 mg/dL *NA* (06/15/2012 23:10:00) UA Bili [Negative] Negative *NA* (06/15/2012 23:10:00) UA Leuk Est [Negative] Large *ABN* (06/15/2012 23:10:00) UA Nitrite [Negative] Positive *ABN* (06/15/2012 23:10:00) UA WBC [0-5 /HPF] >182 /HPF *HI* (06/15/2012 23:10:00) UA RBC [0-2 /HPF] 14 /HPF *HI* (06/15/2012 23:10:00) UA Bacteria [None Seen /HPF] Few /HPF *NA* (06/15/2012 23:10:00) UA Sq Epi [Few /LPF] Occasional /LPF *NA* (06/15/2012 23:10:00) STOOL TESTS Most recent to oldest [Reference Range]: 1 Occult Bld Stl [Negative] Negative (06/15/2012 22:18:00) CHEMISTRY Most recent to oldest [Reference Range]: 1 Sodium Lvl [135-145 mEq/L] 136 mEq/L (06/15/2012 23:10:00) Potassium Lvl [3.5-5.1 mEq/L] 4.9 mEq/L (06/15/2012 23:10:00) Chloride Lvl [95-109 mEq/L] 101 mEq/L (06/15/2012 23:10:00) CO2 [24-32 mEq/L] 27 mEq/L (06/15/2012 23:10:00) AGAP [10.0-20.0 mEq/L] 12.9 mEq/L (06/15/2012 23:10:00) Creatinine Lvl [0.5-1.4 mg/dL] 0.7 mg/dL (06/15/2012 23:10:00) eGFR 103 mL/min/1.73m2 1 *NA* (06/15/2012 23:10:00) BUN [7-22 mg/dL] 13 mg/dL (06/15/2012 23:10:00) B/C Ratio [6-25] 19 (06/15/2012 23:10:00) Glucose Lvl [70-99 mg/dL] 289 mg/dL 2 *HI* (06/15/2012 23:10:00) Total Protein [6.4-8.4 g/dL] 7.9 g/dL (06/15/2012 23:10:00) Albumin Lvl [3.5-5.0 g/dL] 2.8 g/dL *LOW* (06/15/2012 23:10:00) Globulin [2.0-4.0 g/dL] 5.1 g/dL *HI* (06/15/2012 23:10:00) A/G Ratio [0.7-1.6] 0.5 *LOW* (06/15/2012 23:10:00) Calcium Lvl [8.5-10.5 mg/dL] 9.3 mg/dL (06/15/2012 23:10:00) ALT [0-65 unit/L] 26 unit/L (06/15/2012:10:00) AST [0-37 unit/L] 40 unit/L *HI* (06/15/2012 23:10:00) Alk Phos [39-136 unit/L] 112 unit/L (06/15/2012 23:10:00) Bili Total [0.2-1.3 mg/dL] 0.3 mg/dL (06/15/2012 23:10:00) Lipase Lvl [73-393 unit/L] 145 unit/L (06/15/2012 23:10:00) Total CK [12-191 unit/L] 266 unit/L *HI* (06/15/2012 23:10:00) CK MB [0.5-3.6 ng/mL] 3.1 ng/mL (06/15/2012 23:10:00) CK MB Index [0.0-2.5] 1.2 (06/15/2012 23:10:00) Troponin-I [0.00-0.40 ng/mL] <0.02 ng/mL (06/15/2012 23:10:00) 1Result Comment: The eGFR is calculated using the CKD-EPI formula. In most young, healthy individuals the eGFR will be >90 mL/min/1.73m2. The eGFR declines with age. An eGFR of 60-89 may be normal in some populations, particularly the elderly, for whom the CKD-EPI formula has not been extensively validated. Use of the eGFR is not recommended in the following populations: Individuals with unstable creatinine concentrations, including patients and those with serious co-morbid conditions. Patients with extremes in muscle mass or diet. The data above are obtained from the National Kidney Disease Education Program ( NKDEP) which additionally recommends that when the eGFR is used in patients with extremes of body mass index for purposes of drug dosing, the eGFR should be mul tiplied by the estimated BMI. 2Interpretive Data: Adult reference range values reflect the clinical guidelines of the [place] [employer]. HEMATOLOGY Most recent to oldest [Reference Range]: 1 WBC [3.7-10.4 K/CMM] 13.0 K/CMM *HI* (06/15/2012 23:10:00) RBC [4.20-5.40 M/CMM] 3.88 M/CMM *LOW* (06/15/2012 23:10:00) Hgb [12.0-16.0 g/dL] 10.8 g/dL *LOW* (06/15/2012:10:00) Hct [36.0-48.0 %] 33.2 % *LOW* (06/15/2012 23:10:00) MCV [81.0-99.0 fL] 85.7 fL (06/15/2012 23:10:00) MCH [27.0-31.0 pg] 27.9 pg (06/15/2012 23:10:00) MCHC [32.0-36.0 g/dL] 32.6 g/dL (06/15/2012 23:10:00) RDW [11.5-14.5 %] 15.9 % *HI* (06/15/2012 23:10:00) Platelet [133-450 K/CMM] 344 K/CMM (06/15/2012 23:10:00) MPV [7.4-10.4 fL] 11.2 fL *HI* (06/15/2012:10:00) Segs [45.0-75.0 %] 63.9 % (06/15/2012 23:10:00) Lymphocytes [20.0-40.0 %] 24.4 % (06/15/2012 23:10:00) Monocytes [2.0-12.0 %] 6.1 % (06/15/2012 23:10:00) Eosinophils [0.0-4.0 %] 3.0 % (06/15/2012 23:10:00) Basophils [0.0-1.0 %] 2.6 % *HI* (06/15/2012 23:10:00) Segs-Bands # [1.5-8.1 K/CMM] 8.3 K/CMM *HI* (06/15/2012 23:10:00) Lymphocytes # [1.0-5.5 K/CMM] 3.2 K/CMM (06/15/2012 23:10:00) Monocytes # [0.0-0.8 K/CMM] 0.8 K/CMM (06/15/2012 23:10:00) Eosinophils # [0.0-0.5 K/CMM] 0.4 K/CMM (06/15/2012 23:10:00) Basophils # [0.0-0.2 K/CMM] 0.3 K/CMM *HI* (06/15/2012 23:10:00) PT [12.0-14.7 seconds] 11.5 seconds *LOW* (06/15/2012 23:10:00) INR [0.85-1.17] 0.82 3 *LOW* (06/15/2012 23:10:00) PTT [22.9-35.8 seconds] 21.3 seconds 4 *LOW* (06/15/2012 23:10:00) 3Interpretive Data: RECOMMENDED RANGES FOR PROTIME INR: 2.0-3.0 for most medical and surgical thromboembolic states. 2.5-3.5 for artificial heart valves and recurrent embolism. INR SHOULD BE USED ONLY FOR PATIENTS ON STABLE ANTICOAGULANT THERAPY. 4Interpretive Data: Heparin Therapeutic Range: 57 - 92 Seconds
--- OUTSIDE RECORDS SUMMARY | 2019-01-31 19:48 | XMS REPORT | CCD ---
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 Name Role Phone Kevin Hernandez CP Allergies, Adverse Reactions, Alerts Substance Reaction Status morphine Active Problem List Condition Effective Dates Status Asthma Active Diabetic neuropathy Active DM - Diabetes mellitus Active HTN - Hypertension Active NE - Myocardial infarction Active PVD - Peripheral vascular disease Active Medications Medication Instructions Start Date End Date Status Dilaudid 1 mg, 1 mL, Route: IV, Drug form: 06/12/2012 06/12/2012 Discontinued SOLN, Q4H, Dosing Weight 76.364, kg, PRN Pain, Start date: 06/12/12 8:21:00, Duration: 30 day, Stop date: 07/12/12 8:20:00 Benadryl 25 mg, 0.5 mL, Route: IVP, Drug 06/11/2012 06/11/2012 Completed form: INJ, ONCE, Dosing Weight 76.364, kg, Priority: STAT, Start date: 06/11/12 22:53:00, Stop date: 06/11/12 22:53:00 meperidine 25 mg, 0.5 mL, Route: IVP, Drug 06/12/2012 06/12/2012 Discontinued form: INJ, Q4H, Dosing Weight 76.364, kg, PRN Pain, Start date: 06/12/12 7:27:00, Stop date: 06/16/12 7:26:00 Rocephin 1 g/ NS 1 gm, Route: IVPB, ONCE, Dosing 06/11/2012 06/12/2012 Completed (NaCl 0.9%) 50 mL IV Weight 76.364, kg, Priority: STAT, solution + Sodium Start date: 06/11/12 23:55:00, Stop Chloride 0.9% IV 100 date: 06/11/12 23:55:00 mL Dilaudid 2 mg, 1 mL, Route: IV, Drug form: 06/12/2012 06/13/2012 Discontinued INJ, Q3H, Dosing Weight 76.364, kg, PRN Pain, Start date: 06/12/12 13:12:00, Duration: 30 day, Stop date: 07/12/12 13:11:00 promethazine 25 mg, 1 mL, Route: IM, Drug form: 06/12/2012 06/12/2012 Completed INJ, ONCE, Dosing Weight 76.364, kg, PRN Pain, Start date: 06/12/12 13:11:00 morphine Sulfate 4 mg, 2 mL, Route: IVP, Drug form: 06/11/2012 06/11/2012 Completed INJ, ONCE, Dosing Weight 76.364, kg, Priority: STAT, Start date: 06/11/12 21:43:00, Stop date: 06/11/12 21:43:00 Sodium Chloride 0.9% 1,000 mL, Rate: 1,000 ml/hr, Infuse 06/11/2012 06/11/2012 Completed (Bolus) IV 1,000 mL over: 1 hr, Route: IV, kg, Total Volume: 1,000, Bolus Dose, Priority: STAT, Start date: 06/11/12 21:43:00, Duration: 1 doses or times, Stop date: 06/11/12 22:42:00 Zofran 4 mg, 2 mL, Route: IVP, Drug form: 06/11/2012 06/11/2012 Completed INJ, ONCE, Dosing Weight 76.364, kg, Priority: STAT, Start date: 06/11/12 21:43:00, Stop date: 06/11/12 21:43:00 pneumococcal 0.5 ml, Route: IM, Drug Form: INJ, 12/12/2011 12/15/2011 Completed 23-valent vaccine Start date: 12/12/11 9:00:00, Stop date: 12/12/11 9:00:00 meperidine 50 mg, 1 mL, Route: IM, Drug form: 06/12/2012 06/12/2012 Discontinued INJ, ONCE, Dosing Weight 76.364, kg, PRN Pain, Start date: 06/12/12 13:10:00, Stop date: 06/16/12 13:09:00 Toprol-XL 100 mg 100 mg, 1 tab, Route: PO, Drug 06/13/2012 06/13/2012 Discontinued oral tablet, form: ERTAB, Daily, Start date: extended release 06/13/12 9:00:00, Duration: 30 day, Stop date: 07/12/12 9:00:00 Novolin R 30 units, Bedtime, Substitution 06/12/2012 Ordered Allowed Pneumovax 23 0.5 ml, Route: IM, Drug Form: INJ, 12/15/2011 12/15/2011 Completed ONCE, Start date: 12/15/11 12:00:00, Stop date: 12/15/11 12:00:00 NS 250 mL 250 mL, Rate: 25 ml/hr, Infuse 06/12/2012 06/12/2012 Completed over: 10 hr, Route: IV, kg, Total Volume: 250, Start date: 06/12/12 7:57:00, Duration: 1 doses or times, Stop date: 06/12/12 17:56:00, Bolus Dose Bolus Dose pneumococcal 0.5 ml, Route: IM, Drug Form: INJ, 06/30/2007 06/30/2007 Completed 23-valent vaccine ONCALL, Start date: 06/30/07 1:00:00, Duration: 1 doses or times, Stop date: 07/01/07 0:00:00 Dilaudid 1 mg, 1 mL, Route: IV, Drug form: 06/11/2012 06/11/2012 Completed SOLN, ONCE, Dosing Weight 76.364, kg, Start date: 06/11/12 23:44:00, Stop date: 06/11/12 23:44:00 ceftriaxone + Sodium 1 gm, Route: IVPB, [id number], Dosing 06/12/2012 06/13/2012 Discontinued Chloride 0.9% IV 100 Weight 76.364, kg, Start date: mL 06/12/12 3:00:00, Duration: 30 day, Stop date: 07/11/12 3:00:00 glucagon 1 mg, Route: IM, Drug form: 06/12/2012 06/13/2012 Discontinued PDR/INJ, PRN, PRN Blood Glucose Results, Start date: 06/12/12 7:33:00, Duration: 30 day, Stop date: 07/12/12 7:32:00 Dextrose 50% in 50 mL, Route: IVP, Start date: 06/12/2012 06/13/2012 Discontinued Water IV 06/12/12 7:33:00, Duration: 30 day, Stop date: 07/12/12 7:32:00, PRN Blood Glucose Results NovoLog FlexPen 18 unit, 0.18 mL, Route: SUB-Q, 06/12/2012 06/13/2012 Discontinued Drug form: SOLN, Sliding Scale, PRN Blood Glucose Results, Start date: 06/12/12 7:33:00, Duration: 30 day, Stop date: 07/12/12 7:32:00 NovoLog FlexPen 15 unit, 0.15 mL, Route: SUB-Q, 06/12/2012 06/13/2012 Discontinued Drug form: SOLN, Sliding Scale, PRN Blood Glucose Results, Start date: 06/12/12 7:33:00, Duration: 30 day, Stop date: 07/12/12 7:32:00 NovoLog FlexPen 12 unit, 0.12 mL, Route: SUB-Q, 06/12/2012 06/13/2012 Discontinued Drug form: SOLN, Sliding Scale, PRN Blood Glucose Results, Start date: 06/12/12 7:33:00, Duration: 30 day, Stop date: 07/12/12 7:32:00 NovoLog FlexPen 9 unit, 0.09 mL, Route: SUB-Q, Drug 06/12/2012 06/13/2012 Discontinued form: SOLN, Sliding Scale, PRN Blood Glucose Results, Start date: 06/12/12 7:33:00, Duration: 30 day, Stop date: 07/12/12 7:32:00 NovoLog FlexPen 3 unit, 0.03 mL, Route: SUB-Q, Drug 06/12/2012 06/13/2012 Discontinued form: SOLN, Sliding Scale, PRN Blood Glucose Results, Start date: 06/12/12 7:33:00, Duration: 30 day, Stop date: 07/12/12 7:32:00 NovoLog FlexPen 6 unit, 0.06 mL, Route: SUB-Q, Drug 06/12/2012 06/13/2012 Discontinued form: SOLN, Sliding Scale, PRN Blood Glucose Results, Start date: 06/12/12 7:33:00, Duration: 30 day, Stop date: 07/12/12 7:32:00 Lovenox 40 mg, 0.4 mL, Route: SUB-Q, Drug 06/12/2012 06/13/2012 Discontinued form: INJ, [id number], Dosing Weight 76.364, kg, Start date: 06/12/12 16:00:00, Duration: 30 day, Stop date: 07/11/12 16:00:00 NS 1,000 mL 1,000 mL, Rate: 125 ml/hr, Infuse 06/12/2012 06/13/2012 Discontinued over: 8 hr, Route: IV, kg, Total Volume: 1,000, Start date: 06/12/12 15:14:00, Duration: 30 day, Stop date: 07/12/12 15:13:00 Zofran 4 mg, 2 mL, Route: IVP, Drug form: 06/12/2012 06/12/2012 Discontinued INJ, TID, Dosing Weight 76.364, kg, Priority: STAT, Start date: 06/12/12 2:07:00, Duration: 30 day, Stop date: 07/11/12 17:00:00 Dilaudid 1 mg, 1 mL, Route: IV, Drug form: 06/12/2012 06/12/2012 Discontinued SOLN, Q4H, Dosing Weight 76.364, kg, Start date: 06/12/12 4:00:00, Duration: 30 day, Stop date: 07/12/12 0:00:00 [place] 5/325 oral 1 tab, PO, Q6H, PRN, 14 tab, as 06/13/2012 Ordered tablet needed for pain, Substitution Allowed, Maintenance, TAB lisinopril 20 mg, 1 tab, Route: PO, Drug form: 06/12/2012 06/13/2012 Discontinued TAB, Daily, Dosing Weight 76.364, kg, Start date: 06/12/12 9:00:00, Duration: 30 day, Stop date: 07/11/12 9:00:00 promethazine + 25 mg, 1 mL, Route: IVP Central, 06/12/2012 06/13/2012 Discontinued Sodium Chloride 0.9% Drug form: INJ, Q4H, Dosing Weight IV 20 mL 76.364, kg, PRN Nausea & Vomiting, Start date: 06/12/12 7:27:00, Duration: 30 day, Stop date: 07/12/12 7:26:00 Augmentin 875 mg 1 tab, PO, Q12H, 14 tab, 06/13/2012 06/20/2012 Ordered oral tablet Substitution Allowed, Maintenance, TAB Immunizations Vaccine Date Status pneumococcal 23-valent vaccine1 06/30/2007 Auth (Verified) pneumococcal 23-valent vaccine 12/15/2011 Auth (Verified) pneumococcal 23-valent vaccine 12/15/2011 Not Done 1Result Comment: lot # [id number], exp. , elsie [facility] Vital Signs Most recent to oldest [Reference Range]: 1 2 3 Height 157.48 cm (06/11/2012 20:55:00) Temperature Oral [96.4-99.1 DegF] 98.5 DegF (06/13/2012 12:20:00) 98.0 DegF (06/13/2012 07:34:00) 98.3 DegF (06/13/2012 04:20:00) Systolic Blood Pressure [90-140 mmHg] 143 mmHg *HI* (06/13/2012 12:20:00) 157 mmHg *HI* (06/13/2012 07:34:00) 136 mmHg (06/13/2012 04:20:00) Diastolic Blood Pressure [60-90 mmHg] 64 mmHg (06/13/2012 12:20:00) 86 mmHg (06/13/2012 07:34:00) 78 mmHg (06/13/2012 04:20:00) Respiratory Rate [14-20 BRMIN] 18 BRMIN (06/13/2012 12:20:00) 18 BRMIN (06/13/2012 07:34:00) 19 BRMIN (06/13/2012 04:20:00) Peripheral Pulse Rate [60-100 bpm] 78 bpm (06/13/2012 12:20:00) 87 bpm (06/13/2012 07:34:00) 74 bpm (06/13/2012 04:20:00) Weight 76.364 kg (06/11/2012 20:55:00) Results BEDSIDE GLUCOSE TESTING Most recent to oldest [Reference Range]: 1 2 3 Gluc POC Lifscn [70-99 mg/dL] 201 mg/dL 1 *HI* (06/13/2012 12:36:00) 191 mg/dL 2 *HI* (06/13/2012 07:36:00) 166 mg/dL 3 *HI* (06/13/2012 01:41:00) Comment1 Notify RN/MD *NA* (06/13/2012 12:36:00) Notify RN/MD *NA* (06/13/2012 07:36:00) Notify RN/MD *NA* (06/12/2012 17:37:00) 1Interpretive Data: Upper Reportable Limit: 200 mg/dL. 2Interpretive Data: Upper Reportable Limit: 200 mg/dL. 3Interpretive Data: Upper Reportable Limit: 200 mg/dL. URINALYSIS Most recent to oldest [Reference Range]: 1 2 3 UA Turbidity [Clear] Slight *ABN* (06/11/2012 22:23:00) UA Color [Yellow] Yellow *NA* (06/11/2012 22:23:00) UA pH [5.0-8.0] 7.0 (06/11/2012 22:23:00) UA Spec Grav [<=1.030] 1.020 (06/11/2012 22:23:00) UA Glucose [Negative mg/dL] 500 mg/dL *ABN* (06/11/2012 22:23:00) UA Blood [Negative] Negative (06/11/2012 22:23:00) UA Ketones [Negative mg/dL] Negative mg/dL *NA* (06/11/2012 22:23:00) UA Protein [Negative mg/dL] >=300 mg/dL *ABN* (06/11/2012 22:23:00) UA Urobilinogen [0.1-1.0 mg/dL] <=1.0 mg/dL *NA* (06/11/2012 22:23:00) UA Bili [Negative] Negative *NA* (06/11/2012 22:23:00) UA Leuk Est [Negative] Moderate *ABN* (06/11/2012 22:23:00) UA Nitrite [Negative] Positive *ABN* (06/11/2012 22:23:00) UA WBC [0-5 /HPF] >182 /HPF *HI* (06/11/2012 22:23:00) UA RBC [0-2 /HPF] 5 /HPF *HI* (06/11/2012 22:23:00) UA Sq Epi [Few /LPF] Occasional /LPF *NA* (06/11/2012 22:23:00) CHEMISTRY Most recent to oldest [Reference Range]: 1 2 3 Sodium Lvl [135-145 mEq/L] 143 mEq/L (06/13/2012 03:44:00) 139 mEq/L (06/11/2012 22:23:00) Potassium Lvl [3.5-5.1 mEq/L] 4.2 mEq/L (06/13/2012 03:44:00) 4.0 mEq/L (06/11/2012 22:23:00) Chloride Lvl [95-109 mEq/L] 109 mEq/L (06/13/2012 03:44:00) 108 mEq/L (06/11/2012 22:23:00) CO2 [24-32 mEq/L] 25 mEq/L (06/13/2012 03:44:00) 23 mEq/L *LOW* (06/11/2012 22:23:00) AGAP [10.0-20.0 mEq/L] 13.2 mEq/L (06/13/2012 03:44:00) 12.0 mEq/L (06/11/2012 22:23:00) Creatinine Lvl [0.5-1.4 mg/dL] 1.4 mg/dL (06/13/2012 03:44:00) 1.1 mg/dL (06/11/2012 22:23:00) eGFR 44 mL/min/1.73m2 4 *NA* (06/13/2012 03:44:00) 60 mL/min/1.73m2 5 *NA* (06/11/2012 22:23:00) BUN [7-22 mg/dL] 30 mg/dL *HI* (06/13/2012 03:44:00) 24 mg/dL *HI* (06/11/2012 22:23:00) B/C Ratio [6-25] 22 (06/11/2012 22:23:00) Glucose Lvl [70-99 mg/dL] 116 mg/dL 6 *HI* (06/13/2012 03:44:00) 175 mg/dL 7 *HI* (06/11/2012 22:23:00) Total Protein [6.4-8.4 g/dL] 7.1 g/dL (06/11/2012 22:23:00) Albumin Lvl [3.5-5.0 g/dL] 2.8 g/dL *LOW* (06/11/2012 22:23:00) Globulin [2.0-4.0 g/dL] 4.3 g/dL *HI* (06/11/2012 22:23:00) A/G Ratio [0.7-1.6] 0.7 (06/11/2012 22:23:00) Calcium Lvl [8.5-10.5 mg/dL] 8.4 mg/dL *LOW* (06/13/2012 03:44:00) 8.8 mg/dL (06/11/2012 22:23:00) Magnesium Lvl [1.8-2.4 mg/dL] 1.7 mg/dL *LOW* (06/11/2012 22:23:00) ALT [0-65 unit/L] 31 unit/L (06/11/2012 22:23:00) AST [0-37 unit/L] 18 unit/L (06/11/2012 22:23:00) Alk Phos [39-136 unit/L] 120 unit/L (06/11/2012 22:23:00) Bili Total [0.2-1.3 mg/dL] 0.3 mg/dL (06/11/2012 22:23:00) 4Result Comment: The eGFR is calculated using the [...] be mul tiplied by the estimated BMI. 5Result Comment: The eGFR is calculated using the [...] be mul tiplied by the estimated BMI. 6Interpretive Data: Adult reference range values reflect the clinical guidelines of the [place] [employer]. 7Interpretive Data: Adult reference range values reflect the clinical guidelines of the [place] [employer]. HEMATOLOGY Most recent to oldest [Reference Range]: 1 2 3 WBC [3.7-10.4 K/CMM] 13.4 K/CMM *HI* (06/13/2012 03:44:00) 12.6 K/CMM *HI* (06/11/2012 22:23:00) RBC [4.20-5.40 M/CMM] 3.51 M/CMM *LOW* (06/13/2012 03:44:00) 3.91 M/CMM *LOW* (06/11/2012 22:23:00) Hgb [12.0-16.0 g/dL] 9.8 g/dL *LOW* (06/13/2012 03:44:00) 11.0 g/dL *LOW* (06/11/2012 22:23:00) Hct [36.0-48.0 %] 30.1 % *LOW* (06/13/2012 03:44:00) 33.2 % *LOW* (06/11/2012 22:23:00) MCV [81.0-99.0 fL] 85.9 fL (06/13/2012 03:44:00) 85.0 fL (06/11/2012 22:23:00) MCH [27.0-31.0 pg] 27.9 pg (06/13/2012 03:44:00) 28.1 pg (06/11/2012 22:23:00) MCHC [32.0-36.0 g/dL] 32.5 g/dL (06/13/2012 03:44:00) 33.1 g/dL (06/11/2012 22:23:00) RDW [11.5-14.5 %] 16.4 % *HI* (06/13/2012 03:44:00) 16.2 % *HI* (06/11/2012 22:23:00) Platelet [133-450 K/CMM] 279 K/CMM (06/13/2012 03:44:00) 272 K/CMM (06/11/2012 22:23:00) MPV [7.4-10.4 fL] 10.3 fL (06/13/2012 03:44:00) 10.4 fL (06/11/2012 22:23:00) Segs [45.0-75.0 %] 70.3 % (06/11/2012 22:23:00) Lymphocytes [20.0-40.0 %] 22.2 % (06/11/2012 22:23:00) Monocytes [2.0-12.0 %] 4.6 % (06/11/2012 22:23:00) Eosinophils [0.0-4.0 %] 2.5 % (06/11/2012 22:23:00) Basophils [0.0-1.0 %] 0.4 % (06/11/2012 22:23:00) Segs-Bands # [1.5-8.1 K/CMM] 8.9 K/CMM *HI* (06/11/2012 22:23:00) Lymphocytes # [1.0-5.5 K/CMM] 2.8 K/CMM (06/11/2012 22:23:00) Monocytes # [0.0-0.8 K/CMM] 0.6 K/CMM (06/11/2012 22:23:00) Eosinophils # [0.0-0.5 K/CMM] 0.3 K/CMM (06/11/2012 22:23:00) Basophils # [0.0-0.2 K/CMM] 0.0 K/CMM (06/11/2012 22:23:00) RBC Morph Normal (06/11/2012 22:23:00) Plt Morph Normal (06/11/2012 22:23:00) Microbiology Reports PROCEDURE:Culture: Urine STATUS: Auth (Verified) BODY SITE: COLLECTED DATE/TIME: 06/11/2012 22:42:00 SOURCE: Urine, Clean Catch FREE TEXT SOURCE: FINAL REPORTS Final Report No Growth PRELIMINARY REPORTS Preliminary Report No Growth; Holding
--- OUTSIDE RECORDS SUMMARY | 2019-01-31 19:49 | XMS REPORT ---
[facility] Address Unknown Phone Unavailable Care Team Providers Care Wrapper Stitcher Name Role Phone Unavailable Unavailable Payers Payer Name Policy Type Policy Number Effective Date Expiration Date Problems This patient has no known problems. Allergies, Adverse Reactions, Alerts Allergy Name Allergy Type Status Severity Reaction(s) Onset Date Inactive Date Treating Clinician Comments codeine DA Active MO 2018-08-10 00:00:00 morphine DA Active 2018-07-20 00:00:00 influenza virus vaccine qs 7470-8110 (36 mos,up) DA Active MO 2018-07-20 00:00:00 morphine DA Active 2017-12-25 00:00:00 influenza virus vaccine qs (36 mos +) DA Active MO 2017-12-25 00:00:00 Medications This patient has no known medications. Results Test Description Test Time Test Comments Text Results Atomic Results Result Comments GLUBED 2018-11-25 15:52:00 GLUBED (test code=GLUBED) 73 mg/dL 74-106 Performed by certified power grader operator at [facility] [id number] 12:16:00* Test Item Value Reference Range Comments GLUBED (test code=GLUBED) 102 mg/dL 74-106 Performed by certified power grader operator at [facility] [id number] 10:53:00* Test Item Value Reference Range Comments GLUBED (test code=GLUBED) 78 mg/dL 74-106 Performed by certified power grader operator at [facility] AB HEPATITIS B [id number] 06:14:00* Test Item Value Reference Range Comments AB HEPATITIS B SURFACE (test code=HBSAB) Non Reactive () Non Reactive: Inconsistent with immunity, less than 10 mIU/mL Reactive: Consistent with immunity, greater than 9.9 mIU/mLPerformed At: [facility] [address] [place], [place] [id number] Mckay Enamorado MD Ph:[phone] [id number] 04:23:00* Test Item Value Reference Range Comments GLUBED (test code=GLUBED) 81 mg/dL 74-106 Performed by certified power grader operator at [facility] [id number] 20:30:00* Test Item Value Reference Range Comments GLUBED (test code=GLUBED) 89 mg/dL 74-106 Performed by certified power grader operator at [facility] [id number] 15:37:00* Test Item Value Reference Range Comments GLUBED (test code=GLUBED) 104 mg/dL 74-106 Performed by certified power grader operator at [facility] [id number] 12:05:00* Test Item Value Reference Range Comments GLUBED (test code=GLUBED) 165 mg/dL 74-106 Performed by certified power grader operator at [facility] [id number] 08:06:00* Test Item Value Reference Range Comments GLUBED (test code=GLUBED) 76 mg/dL 74-106 Performed by certified power grader operator at [facility] [id number] 06:01:00* Test Item Value Reference Range Comments GLUBED (test code=GLUBED) 101 mg/dL 74-106 Performed by certified power grader operator at [facility] [id number] 20:25:00* Test Item Value Reference Range Comments GLUBED (test code=GLUBED) 116 mg/dL 74-106 Performed by certified power grader operator at [facility] [id number] 17:19:00* Test Item Value Reference Range Comments GLUBED (test code=GLUBED) 82 mg/dL 74-106 Performed by certified power grader operator at [facility] [id number] 12:31:00* Test Item Value Reference Range Comments GLUBED (test code=GLUBED) 124 mg/dL 74-106 Performed by certified power grader operator at [facility] [id number] 08:35:00* Test Item Value Reference Range Comments GLUBED (test code=GLUBED) 107 mg/dL 74-106 Performed by certified power grader operator at [facility] [id number] 05:44:00* Test Item Value Reference Range Comments GLUBED (test code=GLUBED) 131 mg/dL 74-106 Performed by certified power grader operator at [facility] [id number] 20:11:00* Test Item Value Reference Range Comments GLUBED (test code=GLUBED) 108 mg/dL 74-106 Performed by certified power grader operator at [facility] [id number] 16:24:00* Test Item Value Reference Range Comments GLUBED (test code=GLUBED) 159 mg/dL 74-106 Performed by certified power grader operator at [facility] [id number] 09:07:00* Test Item Value Reference Range Comments GLUBED (test code=GLUBED) 114 mg/dL 74-106 Performed by certified power grader operator at [facility] HEPATIC FUNCTION [id number] 06:15:00* Test Item Value Reference Range Comments TOTAL PROTEIN (test code=PROT) 7.3 gram/dL 6.4-8.2 ALBUMIN (test code=ALB) 2.5 g/dL 3.4-5.0 GLOBULIN (test code=GLOB) 4.8 gram/dL 2.7-4.2 ALBUMIN/GLOBULIN RATIO (test code=A/G) 0.5 0.75-1.50 BILIRUBIN TOTAL (test code=BILT) 0.30 mg/dL 0.0-1.0 BILIRUBIN DIRECT (test code=BILD) 0.07 mg/dL 0.0-0.20 SGOT/AST (test code=AST) 11 IUnit/L 15-37 SGPT/ALT (test code=ALT) 14 IUnit/L 12-78 ALKALINE PHOSPHATASE TOTAL (test code=ALKP) 155 IUnit/L 45-117 Note change in reference range due to change in reagent. [id number] 06:12:00* Test Item Value Reference Range Comments GLUBED (test code=GLUBED) 159 mg/dL 74-106 Performed by certified power grader operator at [facility] - US ABDOMEN [id number] 06:10:00 Name: [facility] : 1965 Age/S: 53 / F [facility] Unit #: [id number] Loc: [place] [address] Phys: Greg Rashid MD Acct: [id number] Dis Date: Status: ADM IN PHONE #: [phone] Exam Date: 11/22/2018 0026 FAX #: [phone] Reason: right abd pain EXAMS: CPT CODE: [id number] US ABDOMEN LTD 48406 HISTORY: right abdominal pain TECHNIQUE: Static grayscale and color Doppler images from real time sonographic evaluation of the right upper quadrant. Spectral waveform analysis of the portal vein. COMPARISON: CT 09/04/18 FINDINGS: LIVER: Normal echogenicity without focal lesion. No intrahepatic biliary dilation. Hepatopedal flow identified within the portal vein. GALLBLADDER: Cholecystectomy. COMMON DUCT: Normal caliber at 4 mm. PANCREAS: Obscured. RIGHT KIDNEY: Echogenic cortex. Measures 9.2 x 4.3 x 4.3 cm. Simple 1.9 cm cyst. No hydronephrosis. OTHER: There is no free fluid. IMPRESSION: No acute findings on sonographic evaluation of the right upper abdomen. Cholecystectomy. Atrophic echogenic right kidney, suggesting underlying medical renal disease. at 0610 Reported and signed by: Cherise Patten D.O. CC: Alisha Hernández MD; Greg Rashid MD Technologist: DOTTIE WANG RDMS Trnscb Date/Time: 11/22/2018 (0610) [email or web address] Orig Print D/T: S: 11/22/2018 (06) Probe: PAGE 1 Signed Report [id number] 20:51:00* Test Item Value Reference Range Comments GLUBED (test code=GLUBED) 113 mg/dL 74-106 Performed by certified power grader operator at [facility] [id number] 16:03:00* Test Item Value Reference Range Comments GLUBED (test code=GLUBED) 93 mg/dL 74-106 Performed by certified power grader operator at [facility] [id number] 12:02:00* Test Item Value Reference Range Comments GLUBED (test code=GLUBED) 138 mg/dL 74-106 Performed by certified power grader operator at [facility] [id number] 08:28:00* Test Item Value Reference Range Comments GLUBED (test code=GLUBED) 109 mg/dL 74-106 Performed by certified power grader operator at [facility] [id number] 05:08:00* Test Item Value Reference Range Comments GLUBED (test code=GLUBED) 73 mg/dL 74-106 Performed by certified power grader operator at [facility] [id number] 20:29:00* Test Item Value Reference Range Comments GLUBED (test code=GLUBED) 145 mg/dL 74-106 Performed by certified power grader operator at [facility] [id number] 19:11:00* Test Item Value Reference Range Comments GLUBED (test code=GLUBED) 113 mg/dL 74-106 [facility]~ [id number] 12:14:00* Test Item Value Reference Range Comments GLUBED (test code=GLUBED) 101 mg/dL 74-106 [facility] power grad[facility]~ [id number] 08:36:00* Test Item Value Reference Range Comments GLUBED (test code=GLUBED) 116 mg/dL 74-106 [facility] power [facility]~ [id number] 05:40:00* Test Item Value Reference Range Comments GLUBED (test code=GLUBED) 178 mg/dL 74-106 Performed by certified power grader operator at [facility] [id number] 20:56:00* Test Item Value Reference Range Comments GLUBED (test code=GLUBED) 143 mg/dL 74-106 Performed by certified power grader operator at [facility] - CT CHEST W/O [id number] 19:35:00 Name: BAYRON ESPINOSA [facility] : 1965 Age/S: 53 / F [address] [facility] Unit #: [id number] Loc: [place] [address] Phys: Alisha Hernández MD Acct: [id number] Dis Date: Status: ADM IN PHONE #: [phone] Exam Date: 11/19/2018 190 FAX #: [phone] Reason: abnormal xray, ? pneumomia EXAMS: CPT CODE: [id number] CT CHEST W/O CONTRAST 52846 REASON FOR EXAM: abnormal xray, ? pneumomia EXAM ORDER DATE: 11/19/2018 6:17 PM Ordering MLorenzo: Alisha Hernández MD PROCEDURE: - CT CHEST W/O CONTRAST FINDINGS: CT images of the chest were obtained without IV contrast. Reconstructed sagittal and coronal images of the chest were provided for interpretation. Dose modulation, iterative reconstruction, and/or weight based adjustment of the MA/KV was utilized to reduce the radiation dose to as low as reasonably achievable. The heart size is minimally enlarged. A right IJ tunneled dialysis catheter and a left subclavian pacemaker noted. No evidence of pericardial effusion. The thoracic aorta is aorta is unremarkable. No evidence of mediastinal or hilar adenopathy. No evidence of pleural effusion. IMPRESSION: Vague nodular consolidations of the upper lobes more pronounced on the left suggestive of early nodular infiltrates. Recommend follow-up with CT chest until resolution at 1935 Reported and signed by: Robbi Oliver M.D. CC: Alisha Hernández MD Technologist:Elise Mireles RT(R); TANNER Canales CTDI: DLP: Trnscb Thomas e/Time: 11/19/2018 (1934) t.SDR.VTL Orig Print D/T: S: (1937) CTDI: DLP: PAGE 1 Signed Report [id number] 16:50:00* Test Item Value Reference Range Comments GLUBED (test code=GLUBED) 137 mg/dL 74-106 [facility] [id number] 14:27:00* Test Item Value Reference Range Comments GLUBED (test code=GLUBED) 144 mg/dL 74-106 [facility] certified power grader [facility]~ [id number] 13:08:00* Test Item Value Reference Range Comments GLYCOSYLATED HEMOGLOBIN (HA1C) (test code=GLYHGB) 9.5 % HbA1 4.8-6.0 ESTIMATED AVERAGE GLUCOSE (test code=EAG) 226 MG/DL [id number] 08:03:00* Test Item Value Reference Range Comments GLUBED (test code=GLUBED) 224 mg/dL 74-106 [facility] power grader [facility] [id number] 20:58:00* Test Item Value Reference Range Comments GLUBED (test code=GLUBED) 184 mg/dL 74-106 Performed by certified power grader operator at [facility] [id number] 16:44:00* Test Item Value Reference Range Comments GLUBED (test code=GLUBED) 135 mg/dL 74-106 [facility] power grader [facility]~ [id number] 12:58:00* Test Item Value Reference Range Comments GLUBED (test code=GLUBED) 211 mg/dL 74-106 [facility] by certified power grader [facility]~ [id number] 09:51:00* Test Item Value Reference Range Comments GLUBED (test code=GLUBED) 191 mg/dL 74-106 [facility] power grader [facility] [id number] 21:08:00* Test Item Value Reference Range Comments GLUBED (test code=GLUBED) 286 mg/dL 74-106 Performed by certified power grader operator at [facility] [id number] 12:51:00* Test Item Value Reference Range Comments GLUBED (test code=GLUBED) 208 mg/dL 74-106 Performed by certified power grader operator at [facility] [id number] 09:00:00* Test Item Value Reference Range Comments GLUBED (test code=GLUBED) 189 mg/dL 74-106 Performed by certified power grader operator at [facility] B-TYPE NATRIURETIC [id number] 02:30:00* Test Item Value Reference Range Comments B-TYPE NATRIURETIC PEPTIDE (test code=BNP) 352.71 pgram/mL 0-100 BASIC METABOLIC [id number] 02:26:00* Test Item Value Reference Range Comments SODIUM (test code=NA) 137 mmol/L 136-145 POTASSIUM (test code=K) 3.7 mmol/L 3.5-5.1 CHLORIDE (test code=CL) 100.0 mmol/L 98-107 CARBON DIOXIDE (test code=CO2) 30.0 mmol/L 21-32 ANION GAP (test code=GAP) 10.7 10-20 GLUCOSE (test code=GLU) 261 mg/dL 74-106 BLOOD UREA NITROGEN (test code=BUN) 12 mg/dL 7-18 GLOMERULAR FILTRATION RATE (test code=GFR) 21 mL/min >=60 Estimated GFR by using Modified MDRD formula.Chronic kidney disease is defined as either kidney damageor GFR <60 mL/min/1.73 m2 for >3 months. CREATININE (test code=CREAT) 2.40 mg/dL 0.55-1.02 Note change in reference range due to change in reagent. BUN/CREATININE RATIO (test code=BUN/CREA) 5.0 10-20 CALCIUM (test code=CA) 7.8 mg/dL 8.5-10.1 [id number] 02:26:00* Test Item Value Reference Range Comments TROPONIN-I (test code=TROPI) <0.015 ng/mL 0-0.045 BASIC METABOLIC [id number] 02:10:00* Test Item Value Reference Range Comments SODIUM (test code=NA) 137 mmol/L 136-145 POTASSIUM (test code=K) 3.7 mmol/L 3.5-5.1 CHLORIDE (test code=CL) 100.0 mmol/L 98-107 CARBON DIOXIDE (test code=CO2) mmol/L 21-32 ANION GAP (test code=GAP) 10-20 GLUCOSE (test code=GLU) mg/dL 74-106 BLOOD UREA NITROGEN (test code=BUN) mg/dL 7-18 GLOMERULAR FILTRATION RATE (test code=GFR) mL/min >=60 CREATININE (test code=CREAT) mg/dL 0.55-1.02 BUN/CREATININE RATIO (test code=BUN/CREA) 10-20 CALCIUM (test code=CA) mg/dL 8.5-10.1 [id number] 02:10:00* Test Item Value Reference Range Comments TROPONIN-I (test code=TROPI) ng/mL 0-0.045 - XR CHEST 1 [id number] 02:03:00 FAX: Yaquelin Valero [phone] [place]: St: REG Name: Blade PELAYOBAYRON CAMPS [facility] : [birth year] Age/S: 53/F [address] [facility] Unit #: [id number] Loc: [place] [address] Phys: Yaquelin Lamar MD Acct: [id number] Dis Date: Status: REG ER PHONE #: [phone] Exam Date: 11/16/2018 0130 FAX #: [phone] Reason: Shortness of Breath EXAMS: CPT CODE: [id number] XR CHEST 1 V 18194 - XR CHEST 1 V, 11/16/2018 1:07 AM Reason For Examination: Shortness of Breath Comparison: November 03, 2018 Location: R16 Findings Right central line and cardiac pacing device again noted LUNGS: Questionable edema versus pneumonitis PLEURA: No pleural effusions CARDIOMEDIASTINAL SILHOUETTE Unremarkable IMPRESSION: Low lung volumes limit evaluation Questionable edema versus pneumonitis Karlee ctronically Signed by Romi Arzate M.D. on at 0203 Reported and signed by: Sa terese Arzate M.D. CC: Yaquelin Lamar MD Technologist: Yvonne Reagan Trnscrd Date/Time/By: 11/16/2018 (020) : By: [email or web address] Orig Print D/T: S: 11/16/2018 (0202) PAGE 1 Signed Report CBC W/O [id number] 01:57:00* Test Item Value Reference Range Comments WHITE BLOOD CELL (test code=WBC) 7.4 K/mm3 4.5-12.5 RED BLOOD CELL (test code=RBC) 3.83 mill/mm3 3.7-5.2 HEMOGLOBIN (test code=HGB) 10.4 gram/dL 11.5-15.5 HEMATOCRIT (test code=HCT) 33.3 % 36.0-46.0 MEAN CELL VOLUME (test code=MCV) 86.9 fL 80-98 MEAN CELL HGB (test code=MCH) 27.2 picogram 27.0-33.0 MEAN CELL HGB CONCETRATION (test code=MCHC) 31.2 gram/dL 33.0-36.0 RED CELL DISTRIBUTION WIDTH (test code=RDW) 15.4 % 11.6-16.2 PLATELET COUNT (test code=PLT) 209 K/mm3 150-450 MEAN PLATELET VOLUME (test code=MPV) 12.3 fL 6.7-11.0 [id number] 12:14:00* Test Item Value Reference Range Comments GLUBED (test code=GLUBED) 75 mg/dL 74-106 Performed by certified power grader operator at [facility] [id number] 08:57:00* Test Item Value Reference Range Comments GLUBED (test code=GLUBED) 181 mg/dL 74-106 Performed by certified power grader operator at [facility] [id number] 00:28:00* Test Item Value Reference Range Comments GLUBED (test code=GLUBED) 104 mg/dL 74-106 Performed by certified power grader operator at [facility] [id number] 21:24:00* Test Item Value Reference Range Comments GLUBED (test code=GLUBED) 157 mg/dL 74-106 Performed by certified power grader operator at [facility] [id number] 17:57:00* Test Item Value Reference Range Comments GLUBED (test code=GLUBED) 188 mg/dL 74-106 Performed by certified power grader operator at [facility] AG HEPAT B [id number] 16:00:00* Test Item Value Reference Range Comments AG HEPAT B SURF (test code=HBSAG) Nonreactive Index Nonreactive [id number] 11:57:00* Test Item Value Reference Range Comments GLUBED (test code=GLUBED) 163 mg/dL 74-106 Performed by certified power grader operator at [facility] [id number] 11:14:00* Test Item Value Reference Range Comments TROPONIN-I (test code=TROPI) 0.016 ng/mL 0-0.045 COMMENTS TO SHOWER MAID: COLLECT 3 HOURS AFTER PREVIOUS [id number] 09:57:00* Test Item Value Reference Range Comments GLYCOSYLATED HEMOGLOBIN (HA1C) (test code=GLYHGB) 10.0 % HbA1 4.8-6.0 ESTIMATED AVERAGE GLUCOSE (test code=EAG) 240 MG/DL [id number] 09:01:00* Test Item Value Reference Range Comments TROPONIN-I (test code=TROPI) 0.018 ng/mL 0-0.045 COMMENTS TO SHOWER MAID: COLLECT 3 HOURS AFTER PREVIOUS SAMPLELIPID PROFILE (CORONARY RISK)2018-11-03 08:54:00* Test Item Value Reference Range Comments TRIGLYCERIDES (test code=TRIG) 91 mg/dL 20-150 CHOLESTEROL (test code=CHOL) 288 mg/dL 0-200 CHOLESTEROL/HDL RATIO (test code=CHOLHDL) 1.0 RATIO 0-4.9 RISK ASSOCIATED WITH CHOL/HDL RATIOS: Risk Male Female1/2 AVERAGE 3.43 3.27AVERAGE 4.97 4.442X AVERAGE 9.55 7.053X AVERAGE 23.39 11.04 REFERENCE VALUE IS RELATED TO RISK LEVELS ASRECOMMENDED BY THE [facility]. HEART, LUNG, AND BLOOD INST. HDL CHOLESTEROL (test code=HDL) 145 mg/dL 40-60 LIPOPROTEIN LDL (test code=LDL) 112 mg/dL 100-129 RN PERSONNEL, CONTACT PHYSICIAN IMMEDIATELY IF THIS IS A STROKE, AMI OR CAROTID STENOSIS PATIENT WHEN THE LDL >100 (1ST OCCURENCE, THIS ADMISSION) Reference Interval: mg/dL mmol/L Optimal <100 <2.6Near/above optimal 100-129 2.6- 3.3Borderline High 130-159 3.4-4.1High 160-189 4.1-4.9Very High >=190 >=4.9=========This LDL result is a direct measurement.========= [id number] 08:23:00* Test Item Value Reference Range Comments GLUBED (test code=GLUBED) 180 mg/dL 74-106 Performed by certified power grader operator at [facility] URINALYSIS [id number] 01:36:00* Test Item Value Reference Range Comments UA COLOR (test code=COLU) Light-Yellow YELLOW UA APPEARANCE (test code=APPU) CLEAR CLEAR UA GLUCOSE DIPSTICK (test code=DGLUU) >1000 (4+) mg/dL NEGATIVE UA BILIRUBIN DIPSTICK (test code=BILU) NEGATIVE mg/dL NEGATIVE UA KETONE DIPSTICK (test code=KETU) NEGATIVE mg/dL NEGATIVE UA SPECIFIC GRAVITY (test code=SGU) 1.012 1.001-1.035 UA BLOOD DIPSTICK (test code=MEGHAN) 0.1 mg/dL (1+) mg/dL NEGATIVE UA PH DIPSTICK (test code=SEEMA) 6.5 5.0-8.0 UA PROTEIN DIPSTICK (test code=PROU) 300 (3+) mg/dL NEGATIVE UA UROBILINIOGEN DIPSTICK (test code=URO) Normal mg/dL NEGATIVE UA NITRITE DIPSTICK (test code=VIVEK) NEGATIVE NEGATIVE UA LEUKOCYTE ESTERASE W REFLEX (test code=LEUUR) 75 Sandoval/uL Sandoval/uL NEGATIVE UA WBC (test code=WBCU) 21-50 per HPF 0-5 UA RBC (test code=RBCU) 0-2 #/HPF 0-5 UA WBC CLUMPS (test code=WBCUCL) 3-6 /HPF NONE UA EPITHELIAL CELLS (test code=EPIU) FEW per HPF FEW UA BACTERIA (test code=BACU) FEW #/HPF NONE Urine Source? Clean CatchDRUGS OF ABUSE SCREEN [id number] 01:36:00* Test Item Value Reference Range Comments URN COCAINE (test code=COCAURN) NEGATIVE <300 ng/mL URN CANNABINOIDS (test code=CANNABURN) NEGATIVE <50 ng/mL URN AMPHETAMINE (test code=AMPHETURN) NEGATIVE <1000 ng/mL URN BARBITURATE (test code=BARBITURN) NEGATIVE <200 ng/mL URN BENZODIAZEPINE (test code=BENZOURN) NEGATIVE <200 ng/mL URN OPIATES (test code=OPIATURN) NEGATIVE <300 ng/mL URN PHENCYCLIDINE (PCP) (test code=PHENCURN) NEGATIVE <25 ng/mL URN METHADONE (test code=METHAURN) NEGATIVE <300 ng/mL Urine Source? Clean CatchPROTHROMBIN [id number] 01:23:00* Test Item Value Reference Range Comments PROTHROMBIN TIME PATIENT (test code=PTP) 10.6 seconds 9.0-14.0 INTERNATIONAL NORMAL RATIO (test code=INR) 0.9 0.8-1.2 The therapeutic range for oral anticoagulant therapy formost indications is an international normalized ratio (INR)of between 2.0 and 3.0. The recommended therapeutic INRrange for various clinical situations is listed below: Clinical Situation INR range Pulmonary e mbolism treatment (2.0-3.0)Venous thrombosis treatmentVenous thrombosis prophylaxis (high risk surgery)Prevention of systemic embolism from: Acute myocardial infarction Valvular heart disease Atrial fibrillation Mechanical prosthetic heart valves (2.5-3.5) IS PATIENT ON ANTICOAGULANTS? NTHROMBOPLASTIN TIME [id number] 01:23:00* Test Item Value Reference Range Comments THROMBOPLASTIN TIME PARTIAL (test code=PTT) 30.4 seconds 25.0-36.5 IS PATIENT ON ANTICOAGULANTS? NURINALYSIS [id number] 01:21:00* Test Item Value Reference Range Comments UA COLOR (test code=COLU) Light-Yellow YELLOW UA APPEARANCE (test code=APPU) CLEAR CLEAR UA GLUCOSE DIPSTICK (test code=DGLUU) >1000 (4+) mg/dL NEGATIVE UA BILIRUBIN DIPSTICK (test code=BILU) NEGATIVE mg/dL NEGATIVE UA KETONE DIPSTICK (test code=KETU) NEGATIVE mg/dL NEGATIVE UA SPECIFIC GRAVITY (test code=SGU) 1.012 1.001-1.035 UA BLOOD DIPSTICK (test code=MEGHAN) 0.1 mg/dL (1+) mg/dL NEGATIVE UA PH DIPSTICK (test code=SEEMA) 6.5 5.0-8.0 UA PROTEIN DIPSTICK (test code=PROU) 300 (3+) mg/dL NEGATIVE UA UROBILINIOGEN DIPSTICK (test code=URO) Normal mg/dL NEGATIVE UA NITRITE DIPSTICK (test code=VIVEK) NEGATIVE NEGATIVE UA LEUKOCYTE ESTERASE W REFLEX (test code=LEUUR) 75 Sandoval/uL Sandoval/uL NEGATIVE UA WBC (test code=WBCU) 21-50 per HPF 0-5 UA RBC (test code=RBCU) 0-2 #/HPF 0-5 UA WBC CLUMPS (test code=WBCUCL) 3-6 /HPF NONE UA EPITHELIAL CELLS (test code=EPIU) FEW per HPF FEW UA BACTERIA (test code=BACU) FEW #/HPF NONE Urine Source? Clean CatchDRUGS OF ABUSE SCREEN [id number] 01:21:00* Test Item Value Reference Range Comments URN COCAINE (test code=COCAURN) <300 ng/mL URN CANNABINOIDS (test code=CANNABURN) <50 ng/mL URN AMPHETAMINE (test code=AMPHETURN) <1000 ng/mL URN BARBITURATE (test code=BARBITURN) <200 ng/mL URN BENZODIAZEPINE (test code=BENZOURN) <200 ng/mL URN OPIATES (test code=OPIATURN) <300 ng/mL URN PHENCYCLIDINE (PCP) (test code=PHENCURN) <25 ng/mL URN METHADONE (test code=METHAURN) <300 ng/mL Urine Source? Clean CatchB-TYPE NATRIURETIC [id number] 01:21:00* Test Item Value Reference Range Comments B-TYPE NATRIURETIC PEPTIDE (test code=BNP) 545.12 pgram/mL 0-100 BASIC METABOLIC [id number] 01:17:00* Test Item Value Reference Range Comments SODIUM (test code=NA) 136 mmol/L 136-145 POTASSIUM (test code=K) 5.7 mmol/L 3.5-5.1 CHLORIDE (test code=CL) 108.0 mmol/L 98-107 CARBON DIOXIDE (test code=CO2) 19.0 mmol/L 21-32 ANION GAP (test code=GAP) 14.7 10-20 GLUCOSE (test code=GLU) 401 mg/dL 74-106 BLOOD UREA NITROGEN (test code=BUN) 68 mg/dL 7-18 GLOMERULAR FILTRATION RATE (test code=GFR) 9 mL/min >=60 Estimated GFR by using Modified MDRD formula.Chronic kidney disease is defined as either kidney damageor GFR <60 mL/min/1.73 m2 for >3 months. CREATININE (test code=CREAT) 5.10 mg/dL 0.55-1.02 Note change in reference range due to change in reagent. BUN/CREATININE RATIO (test code=BUN/CREA) 13.3 10-20 CALCIUM (test code=CA) 8.1 mg/dL 8.5-10.1 HEPATIC FUNCTION [id number] 01:17:00* Test Item Value Reference Range Comments TOTAL PROTEIN (test code=PROT) 7.1 gram/dL 6.4-8.2 ALBUMIN (test code=ALB) 2.8 g/dL 3.4-5.0 GLOBULIN (test code=GLOB) 4.3 gram/dL 2.7-4.2 ALBUMIN/GLOBULIN RATIO (test code=A/G) 0.7 0.75-1.50 BILIRUBIN TOTAL (test code=BILT) 0.20 mg/dL 0.0-1.0 BILIRUBIN DIRECT (test code=BILD) 0.08 mg/dL 0.0-0.20 SGOT/AST (test code=AST) 14 IUnit/L 15-37 SGPT/ALT (test code=ALT) 14 IUnit/L 12-78 ALKALINE PHOSPHATASE TOTAL (test code=ALKP) 179 IUnit/L 45-117 Note change in reference range due to change in reagent. [id number] 01:17:00* Test Item Value Reference Range Comments LIPASE (test code=LIP) 142 U/L 73.0-393.0 [id number] 01:17:00* Test Item Value Reference Range Comments TROPONIN-I (test code=TROPI) 0.018 ng/mL 0-0.045 CBC W/O [id number] 00:56:00* Test Item Value Reference Range Comments WHITE BLOOD CELL (test code=WBC) 10.1 K/mm3 4.5-12.5 RED BLOOD CELL (test code=RBC) 3.82 mill/mm3 3.7-5.2 HEMOGLOBIN (test code=HGB) 10.1 gram/dL 11.5-15.5 HEMATOCRIT (test code=HCT) 34.2 % 36.0-46.0 MEAN CELL VOLUME (test code=MCV) 89.5 fL 80-98 MEAN CELL HGB (test code=MCH) 26.4 picogram 27.0-33.0 MEAN CELL HGB CONCETRATION (test code=MCHC) 29.5 gram/dL 33.0-36.0 RED CELL DISTRIBUTION WIDTH (test code=RDW) 15.8 % 11.6-16.2 PLATELET COUNT (test code=PLT) 271 K/mm3 150-450 MEAN PLATELET VOLUME (test code=MPV) 12.4 fL 6.7-11.0 - XR CHEST 1 [id number] 00:39:00 [place]: B St: REG Name: BAYRON PRO [facility] : 09/28/18 62 Age/S: 53/F [address] Unit #: [id number] Loc: [place] [address] Phys: Doris Ybarra MD Acct: [id number] Dis Date: Status: REG ER PHONE #: [phone] Exam Date: 11/03/2018 0015 FAX #: [phone] Reason: CHEST PAIN EXAMS: CPT CODE: [id number] XR CHEST 1 V 50722 HISTORY: Chest pain. Location: C3 COMPARISON:None FINDINGS: Aortic calcifications are present. Right IJ dialysis catheter is noted. Left subclavian pacemaker is demonstrated. There is mild cardiomegaly. T he lungs are clear of focal consolidation. No effusion, pneumothorax, or acute osseous abnormality. IMPRESSION: 1. No focal consolidation. No other acute abnormalities. Electroni kendy Signed by Tanner Bobo MD on 11/03/2018 at 0039 R eported and signed by: Tanner Bobo MD CC: Technologist: RT SENDY Trnscrd Date/Time/By: 11/03/2018 (0039) : By: Edi [id number] Orig Print D/T: S: 11/03/2018 (0042) ROCAEL RENE 1 Signed Report GLUBED 2018-09-15 07:38:00* Test Item Value Reference Range Comments GLUBED (test code=GLUBED) 135 mg/dL 74-106 Performed by certified power grader operator at [facility] [id number] 07:37:00* Test Item Value Reference Range Comments GLUBED (test code=GLUBED) 141 mg/dL 74-106 Performed by certified power grader operator at [facility] [id number] 07:36:00* Test Item Value Reference Range Comments GLUBED (test code=GLUBED) 119 mg/dL 74-106 Performed by certified power grader operator at [facility] [id number] 07:35:00* Test Item Value Reference Range Comments GLUBED (test code=GLUBED) 128 mg/dL 74-106 Performed by certified power grader operator at [facility] [id number] 07:34:00* Test Item Value Reference Range Comments GLUBED (test code=GLUBED) 106 mg/dL 74-106 Performed by certified power grader operator at [facility] [id number] 07:34:00* Test Item Value Reference Range Comments GLUBED (test code=GLUBED) 253 mg/dL 74-106 Performed by certified power grader operator at [facility] [id number] 11:12:00* Test Item Value Reference Range Comments GLUBED (test code=GLUBED) 296 mg/dL 74-106 Performed by certified power grader operator at [facility] [id number] 07:28:00* Test Item Value Reference Range Comments GLUBED (test code=GLUBED) 319 mg/dL 74-106 Performed by certified power grader operator at [facility] [id number] 20:29:00* Test Item Value Reference Range Comments GLUBED (test code=GLUBED) 269 mg/dL 74-106 [facility] power [facility]ified Nurse~ [id number] 11:30:00* Test Item Value Reference Range Comments GLUBED (test code=GLUBED) 355 mg/dL 74-106 Performed by certified power grader operator at [facility] [id number] 20:30:00* Test Item Value Reference Range Comments GLUBED (test code=GLUBED) 79 mg/dL 74-106 Performed by certified power grader operator at [facility] [id number] 16:37:00* Test Item Value Reference Range Comments GLUBED (test code=GLUBED) 177 mg/dL 74-106 Performed by certified power grader operator at [facility] [id number] 14:04:00* Test Item Value Reference Range Comments GLUBED (test code=GLUBED) 290 mg/dL 74-106 Performed by certified power grader operator at [facility] [id number] 09:41:00* Test Item Value Reference Range Comments GLUBED (test code=GLUBED) 226 mg/dL 74-106 Performed by certified power grader operator at [facility] [id number] 22:42:00* Test Item Value Reference Range Comments GLUBED (test code=GLUBED) 218 mg/dL 74-106 Performed by certified power grader operator at [facility] - CT CHEST W/[id number] 19:02:00 Name: BAYRON ESPINOSA [facility] : 1965 Age/S: 52 / F [address] [facility] Unit #: [id number] Loc: [place] [address] Phys: Greg Rashid MD Acct: [id number] Dis Date: Status: ADM IN PHONE #: [phone] Exam Date: 09/08/2018 0853 FAX #: [phone] Reason: recent onset 7 mm lung nodule EXAMS: CPT CODE: [id number] CT CHEST W/CONTRAST 35808 REASON FOR EXAM: recent onset 7 mm lung nodule EXAM ORDER DATE: 09/08/2018 10:20 PM Ordering MLorenzo: Greg Rashid MD PROCEDURE: - CT CHEST W/CONTRAST COMPARISON: 09/04/2018 CT of the abdomen FINDINGS: CT images of the chest were obtained with IV contrast. Reconstructed sagittal and coronal images of the chest were provided for interpretation. Dose reduction techniques were applied. The heart size is within normal limits. No evidence of pericardial effusion The thoracic aorta is unremarkable. No evidence of dissection or aneurysmal dilatation. No filling defect seen within the main or lobar pulmonary arteries to suggest pulmonary embolus Multiple subcentimeter nonspecific inflammatory nodes in the right paratracheal space, AP window, subcarinal region, and biceps lateral axillary regions. The lungs are clear. No evidence of pleural effusion IMPRESSION:The small 7 mm right lower lobe pulmonary nodule seen on the CT of the abdomen were not visualized on the CT of the chest. In the area of concern, there is slight enlargement of the right lower lobe pulmonary vein resembling a lesion. at 1902 Reported and signed by: Robbi Oliver M.D. CC: Greg Rashid MD; Hansa Wade MD Technologist:Grant Arzate RT(R),(MR),(CT) CTDI: DLP: Trnscb Date/Time: 09/08/2018 (1901) t.SDR.VTL Orig Print D/T: S: 09/08/2018 (1904) CTDI: DLP: PAGE 1 Signed Report [id number] 12:19:00 * Test Item Value Reference Range Comments GLUBED (test code=GLUBED) 281 mg/dL 74-106 Performed by certified power grader operator at [facility] [id number] 08:55:00* Test Item Value Reference Range Comments GLUBED (test code=GLUBED) 294 mg/dL 74-106 Performed by certified power grader operator at [facility] CBC W/AUTO [id number] 20:35:00* Test Item Value Reference Range Comments WHITE BLOOD CELL (test code=WBC) 8.2 K/mm3 4.5-12.5 RED BLOOD CELL (test code=RBC) 5.24 mill/mm3 3.7-5.2 HEMOGLOBIN (test code=HGB) 13.9 gram/dL 11.5-15.5 HEMATOCRIT (test code=HCT) 48.7 % 36.0-46.0 MEAN CELL VOLUME (test code=MCV) 92.9 fL 80-98 MEAN CELL HGB (test code=MCH) 26.9 picogram 27.0-33.0 MEAN CELL HGB CONCETRATION (test code=MCHC) 29.0 gram/dL 33.0-36.0 RED CELL DISTRIBUTION WIDTH (test code=RDW) 15.5 % 11.6-16.2 RED CELL DISTRIBUTION WIDTH SD (test code=RDW-SD) 52.2 fL 37.0-51.0 PLATELET COUNT (test code=PLT) 245 K/mm3 150-450 MEAN PLATELET VOLUME (test code=MPV) 11.6 fL 6.7-11.0 NEUTROPHIL % (test code=NT%) 58.1 % 39.0-69.0 IMMATURE GRANULOCYTE % (test code=IG%) 1.3 % 0.0-5.0 LYMPHOCYTE % (test code=LY%) 29.9 % 25.0-55.0 MONOCYTE % (test code=MO%) 7.9 % 0.0-10.0 EOSINOPHIL % (test code=EO%) 1.7 % 0.0-5.0 BASOPHIL % (test code=BA%) 1.1 % 0.0-1.0 NUCLEATED RBC % (test code=NRBC%) 0.2 % 0-0 NEUTROPHIL # (test code=NT#) 4.79 K/mm3 1.8-7.7 IMMATURE GRANULOCYTE # (test code=IG#) 0.11 x10 3/uL 0-0.03 LYMPHOCYTE # (test code=LY#) 2.46 K/mm3 1.0-5.0 MONOCYTE # (test code=MO#) 0.65 K/mm3 0-0.8 EOSINOPHIL # (test code=EO#) 0.14 K/mm3 0.0-0.5 BASOPHIL # (test code=BA#) 0.09 K/mm3 0.0-0.2 NUCLEATED RBC # (test code=NRBC#) 0.02 K/mm3 0.0-0.1 MANUAL DIFF REQUIRED (test code=MDIFF) NO, ONLY SCAN NEEDED DIFFERENTIAL [id number] 20:35:00* Test Item Value Reference Range Comments STAIN ACCEPTABILITY (test code=STN ACCEPTABLE) STAIN ACCEPTABLE ANISOCYTOSIS (test code=ANISO) 1+ PLATELET ESTIMATE (test code=PLTEST) ADEQUATE PLATELET MORPHOLOGY (test code=PLTMORPH) NORMAL COMPREHENSIVE METABOLIC [id number] 20:35:00* Test Item Value Reference Range Comments SODIUM (test code=NA) 137 mmol/L 136-145 POTASSIUM (test code=K) 4.0 mmol/L 3.5-5.1 CHLORIDE (test code=CL) 106.0 mmol/L 98-107 CARBON DIOXIDE (test code=CO2) 18.0 mmol/L 21-32 ANION GAP (test code=GAP) 17.0 10-20 GLUCOSE (test code=GLU) 133 mg/dL 74-106 BLOOD UREA NITROGEN (test code=BUN) 41 mg/dL 7-18 GLOMERULAR FILTRATION RATE (test code=GFR) 9 mL/min >=60 Estimated GFR by using Modified MDRD formula.Chronic kidney disease is defined as either kidney damageor GFR <60 mL/min/1.73 m2 for >3 months. CREATININE (test code=CREAT) 5.10 mg/dL 0.55-1.02 Note change in reference range due to change in reagent. BUN/CREATININE RATIO (test code=BUN/CREA) 8.0 10-20 TOTAL PROTEIN (test code=PROT) 7.9 gram/dL 6.4-8.2 ALBUMIN (test code=ALB) 2.4 g/dL 3.4-5.0 GLOBULIN (test code=GLOB) 5.5 gram/dL 2.7-4.2 ALBUMIN/GLOBULIN RATIO (test code=A/G) 0.4 0.75-1.50 CALCIUM (test code=CA) 7.9 mg/dL 8.5-10.1 BILIRUBIN TOTAL (test code=BILT) 0.30 mg/dL 0.0-1.0 SGOT/AST (test code=AST) 24 IUnit/L 15-37 SGPT/ALT (test code=ALT) 14 IUnit/L 12-78 ALKALINE PHOSPHATASE TOTAL (test code=ALKP) 139 IUnit/L 45-117 Note change in reference range due to change in reagent. [id number] 20:35:00* Test Item Value Reference Range Comments PHOSPHORUS (test code=PHOS) 5.8 mg/dL 2.5-4.9 [id number] 20:35:00* Test Item Value Reference Range Comments MAGNESIUM (test code=MAG) 1.9 mg/dL 1.8-2.4 COMPREHENSIVE METABOLIC [id number] 20:17:00* Test Item Value Reference Range Comments SODIUM (test code=NA) 137 mmol/L 136-145 POTASSIUM (test code=K) 4.0 mmol/L 3.5-5.1 CHLORIDE (test code=CL) 106.0 mmol/L 98-107 CARBON DIOXIDE (test code=CO2) mmol/L 21-32 ANION GAP (test code=GAP) 10-20 GLUCOSE (test code=GLU) mg/dL 74-106 BLOOD UREA NITROGEN (test code=BUN) mg/dL 7-18 GLOMERULAR FILTRATION RATE (test code=GFR) mL/min >=60 CREATININE (test code=CREAT) mg/dL 0.55-1.02 BUN/CREATININE RATIO (test code=BUN/CREA) 10-20 TOTAL PROTEIN (test code=PROT) gram/dL 6.4-8.2 ALBUMIN (test code=ALB) g/dL 3.4-5.0 GLOBULIN (test code=GLOB) gram/dL 2.7-4.2 ALBUMIN/GLOBULIN RATIO (test code=A/G) 0.75-1.50 CALCIUM (test code=CA) mg/dL 8.5-10.1 BILIRUBIN TOTAL (test code=BILT) mg/dL 0.0-1.0 SGOT/AST (test code=AST) IUnit/L 15-37 SGPT/ALT (test code=ALT) IUnit/L 12-78 ALKALINE PHOSPHATASE TOTAL (test code=ALKP) IUnit/L 45-117 [id number] 20:17:00* Test Item Value Reference Range Comments PHOSPHORUS (test code=PHOS) mg/dL 2.5-4.9 [id number] 20:17:00* Test Item Value Reference Range Comments MAGNESIUM (test code=MAG) mg/dL 1.8-2.4 CBC W/AUTO [id number] 20:09:00* Test Item Value Reference Range Comments WHITE BLOOD CELL (test code=WBC) 8.2 K/mm3 4.5-12.5 RED BLOOD CELL (test code=RBC) 5.24 mill/mm3 3.7-5.2 HEMOGLOBIN (test code=HGB) 13.9 gram/dL 11.5-15.5 HEMATOCRIT (test code=HCT) 48.7 % 36.0-46.0 MEAN CELL VOLUME (test code=MCV) 92.9 fL 80-98 MEAN CELL HGB (test code=MCH) 26.9 picogram 27.0-33.0 MEAN CELL HGB CONCETRATION (test code=MCHC) 29.0 gram/dL 33.0-36.0 RED CELL DISTRIBUTION WIDTH (test code=RDW) 15.5 % 11.6-16.2 RED CELL DISTRIBUTION WIDTH SD (test code=RDW-SD) 52.2 fL 37.0-51.0 PLATELET COUNT (test code=PLT) 245 K/mm3 150-450 MEAN PLATELET VOLUME (test code=MPV) 11.6 fL 6.7-11.0 NEUTROPHIL % (test code=NT%) 58.1 % 39.0-69.0 IMMATURE GRANULOCYTE % (test code=IG%) 1.3 % 0.0-5.0 LYMPHOCYTE % (test code=LY%) 29.9 % 25.0-55.0 MONOCYTE % (test code=MO%) 7.9 % 0.0-10.0 EOSINOPHIL % (test code=EO%) 1.7 % 0.0-5.0 BASOPHIL % (test code=BA%) 1.1 % 0.0-1.0 NUCLEATED RBC % (test code=NRBC%) 0.2 % 0-0 NEUTROPHIL # (test code=NT#) 4.79 K/mm3 1.8-7.7 IMMATURE GRANULOCYTE # (test code=IG#) 0.11 x10 3/uL 0-0.03 LYMPHOCYTE # (test code=LY#) 2.46 K/mm3 1.0-5.0 MONOCYTE # (test code=MO#) 0.65 K/mm3 0-0.8 EOSINOPHIL # (test code=EO#) 0.14 K/mm3 0.0-0.5 BASOPHIL # (test code=BA#) 0.09 K/mm3 0.0-0.2 NUCLEATED RBC # (test code=NRBC#) 0.02 K/mm3 0.0-0.1 MANUAL DIFF REQUIRED (test code=MDIFF) NO, ONLY SCAN NEEDED DIFFERENTIAL [id number] 20:09:00* Test Item Value Reference Range Comments STAIN ACCEPTABILITY (test code=STN ACCEPTABLE) CABOT RINGS (test code=CAB) MORPHOLOGY COMMENT (test code=MOC) PLATELET ESTIMATE (test code=PLTEST) PLATELET MORPHOLOGY (test code=PLTMORPH) CBC W/AUTO [id number] 20:09:00* Test Item Value Reference Range Comments WHITE BLOOD CELL (test code=WBC) 8.2 K/mm3 4.5-12.5 RED BLOOD CELL (test code=RBC) 5.24 mill/mm3 3.7-5.2 HEMOGLOBIN (test code=HGB) 13.9 gram/dL 11.5-15.5 HEMATOCRIT (test code=HCT) 48.7 % 36.0-46.0 MEAN CELL VOLUME (test code=MCV) 92.9 fL 80-98 MEAN CELL HGB (test code=MCH) 26.9 picogram 27.0-33.0 MEAN CELL HGB CONCETRATION (test code=MCHC) 29.0 gram/dL 33.0-36.0 RED CELL DISTRIBUTION WIDTH (test code=RDW) 15.5 % 11.6-16.2 RED CELL DISTRIBUTION WIDTH SD (test code=RDW-SD) 52.2 fL 37.0-51.0 PLATELET COUNT (test code=PLT) 245 K/mm3 150-450 MEAN PLATELET VOLUME (test code=MPV) 11.6 fL 6.7-11.0 NEUTROPHIL % (test code=NT%) 58.1 % 39.0-69.0 IMMATURE GRANULOCYTE % (test code=IG%) 1.3 % 0.0-5.0 LYMPHOCYTE % (test code=LY%) 29.9 % 25.0-55.0 MONOCYTE % (test code=MO%) 7.9 % 0.0-10.0 EOSINOPHIL % (test code=EO%) 1.7 % 0.0-5.0 BASOPHIL % (test code=BA%) 1.1 % 0.0-1.0 NUCLEATED RBC % (test code=NRBC%) 0.2 % 0-0 NEUTROPHIL # (test code=NT#) 4.79 K/mm3 1.8-7.7 IMMATURE GRANULOCYTE # (test code=IG#) 0.11 x10 3/uL 0-0.03 LYMPHOCYTE # (test code=LY#) 2.46 K/mm3 1.0-5.0 MONOCYTE # (test code=MO#) 0.65 K/mm3 0-0.8 EOSINOPHIL # (test code=EO#) 0.14 K/mm3 0.0-0.5 BASOPHIL # (test code=BA#) 0.09 K/mm3 0.0-0.2 NUCLEATED RBC # (test code=NRBC#) 0.02 K/mm3 0.0-0.1 MANUAL DIFF REQUIRED (test code=MDIFF) NO, ONLY SCAN NEEDED DIFFERENTIAL [id number] 20:09:00* Test Item Value Reference Range Comments STAIN ACCEPTABILITY (test code=STN ACCEPTABLE) CABOT RINGS (test code=CAB) MORPHOLOGY COMMENT (test code=MOC) PLATELET ESTIMATE (test code=PLTEST) PLATELET MORPHOLOGY (test code=PLTMORPH) CBC W/AUTO [id number] 20:09:00* Test Item Value Reference Range Comments WHITE BLOOD CELL (test code=WBC) 8.2 K/mm3 4.5-12.5 RED BLOOD CELL (test code=RBC) 5.24 mill/mm3 3.7-5.2 HEMOGLOBIN (test code=HGB) 13.9 gram/dL 11.5-15.5 HEMATOCRIT (test code=HCT) 48.7 % 36.0-46.0 MEAN CELL VOLUME (test code=MCV) 92.9 fL 80-98 MEAN CELL HGB (test code=MCH) 26.9 picogram 27.0-33.0 MEAN CELL HGB CONCETRATION (test code=MCHC) 29.0 gram/dL 33.0-36.0 RED CELL DISTRIBUTION WIDTH (test code=RDW) 15.5 % 11.6-16.2 RED CELL DISTRIBUTION WIDTH SD (test code=RDW-SD) 52.2 fL 37.0-51.0 PLATELET COUNT (test code=PLT) 245 K/mm3 150-450 MEAN PLATELET VOLUME (test code=MPV) 11.6 fL 6.7-11.0 NEUTROPHIL % (test code=NT%) 58.1 % 39.0-69.0 IMMATURE GRANULOCYTE % (test code=IG%) 1.3 % 0.0-5.0 LYMPHOCYTE % (test code=LY%) 29.9 % 25.0-55.0 MONOCYTE % (test code=MO%) 7.9 % 0.0-10.0 EOSINOPHIL % (test code=EO%) 1.7 % 0.0-5.0 BASOPHIL % (test code=BA%) 1.1 % 0.0-1.0 NUCLEATED RBC % (test code=NRBC%) 0.2 % 0-0 NEUTROPHIL # (test code=NT#) 4.79 K/mm3 1.8-7.7 IMMATURE GRANULOCYTE # (test code=IG#) 0.11 x10 3/uL 0-0.03 LYMPHOCYTE # (test code=LY#) 2.46 K/mm3 1.0-5.0 MONOCYTE # (test code=MO#) 0.65 K/mm3 0-0.8 EOSINOPHIL # (test code=EO#) 0.14 K/mm3 0.0-0.5 BASOPHIL # (test code=BA#) 0.09 K/mm3 0.0-0.2 NUCLEATED RBC # (test code=NRBC#) 0.02 K/mm3 0.0-0.1 MANUAL DIFF REQUIRED (test code=MDIFF) NO, ONLY SCAN NEEDED DIFFERENTIAL [id number] 20:09:00* Test Item Value Reference Range Comments STAIN ACCEPTABILITY (test code=STN ACCEPTABLE) MORPHOLOGY COMMENT (test code=MOC) PLATELET ESTIMATE (test code=PLTEST) PLATELET MORPHOLOGY (test code=PLTMORPH) CBC W/AUTO [id number] 20:09:00* Test Item Value Reference Range Comments WHITE BLOOD CELL (test code=WBC) 8.2 K/mm3 4.5-12.5 RED BLOOD CELL (test code=RBC) 5.24 mill/mm3 3.7-5.2 HEMOGLOBIN (test code=HGB) 13.9 gram/dL 11.5-15.5 HEMATOCRIT (test code=HCT) 48.7 % 36.0-46.0 MEAN CELL VOLUME (test code=MCV) 92.9 fL 80-98 MEAN CELL HGB (test code=MCH) 26.9 picogram 27.0-33.0 MEAN CELL HGB CONCETRATION (test code=MCHC) 29.0 gram/dL 33.0-36.0 RED CELL DISTRIBUTION WIDTH (test code=RDW) 15.5 % 11.6-16.2 RED CELL DISTRIBUTION WIDTH SD (test code=RDW-SD) 52.2 fL 37.0-51.0 PLATELET COUNT (test code=PLT) 245 K/mm3 150-450 MEAN PLATELET VOLUME (test code=MPV) 11.6 fL 6.7-11.0 NEUTROPHIL % (test code=NT%) 58.1 % 39.0-69.0 IMMATURE GRANULOCYTE % (test code=IG%) 1.3 % 0.0-5.0 LYMPHOCYTE % (test code=LY%) 29.9 % 25.0-55.0 MONOCYTE % (test code=MO%) 7.9 % 0.0-10.0 EOSINOPHIL % (test code=EO%) 1.7 % 0.0-5.0 BASOPHIL % (test code=BA%) 1.1 % 0.0-1.0 NUCLEATED RBC % (test code=NRBC%) 0.2 % 0-0 NEUTROPHIL # (test code=NT#) 4.79 K/mm3 1.8-7.7 IMMATURE GRANULOCYTE # (test code=IG#) 0.11 x10 3/uL 0-0.03 LYMPHOCYTE # (test code=LY#) 2.46 K/mm3 1.0-5.0 MONOCYTE # (test code=MO#) 0.65 K/mm3 0-0.8 EOSINOPHIL # (test code=EO#) 0.14 K/mm3 0.0-0.5 BASOPHIL # (test code=BA#) 0.09 K/mm3 0.0-0.2 NUCLEATED RBC # (test code=NRBC#) 0.02 K/mm3 0.0-0.1 MANUAL DIFF REQUIRED (test code=MDIFF) NO, ONLY SCAN NEEDED DIFFERENTIAL [id number] 20:09:00* Test Item Value Reference Range Comments STAIN ACCEPTABILITY (test code=STN ACCEPTABLE) CABOT RINGS (test code=CAB) MORPHOLOGY COMMENT (test code=MOC) PLATELET ESTIMATE (test code=PLTEST) PLATELET MORPHOLOGY (test code=PLTMORPH) CBC W/AUTO [id number] 20:04:00* Test Item Value Reference Range Comments WHITE BLOOD CELL (test code=WBC) K/mm3 4.5-12.5 RED BLOOD CELL (test code=RBC) mill/mm3 3.7-5.2 HEMOGLOBIN (test code=HGB) 13.9 gram/dL 11.5-15.5 HEMATOCRIT (test code=HCT) % 36.0-46.0 MEAN CELL VOLUME (test code=MCV) fL 80-98 MEAN CELL HGB (test code=MCH) picogram 27.0-33.0 MEAN CELL HGB CONCETRATION (test code=MCHC) gram/dL 33.0-36.0 RED CELL DISTRIBUTION WIDTH (test code=RDW) % 11.6-16.2 RED CELL DISTRIBUTION WIDTH SD (test code=RDW-SD) fL 37.0-51.0 PLATELET COUNT (test code=PLT) K/mm3 150-450 MEAN PLATELET VOLUME (test code=MPV) fL 6.7-11.0 NEUTROPHIL % (test code=NT%) % 39.0-69.0 IMMATURE GRANULOCYTE % (test code=IG%) % 0.0-5.0 LYMPHOCYTE % (test code=LY%) % 25.0-55.0 MONOCYTE % (test code=MO%) % 0.0-10.0 EOSINOPHIL % (test code=EO%) % 0.0-5.0 BASOPHIL % (test code=BA%) % 0.0-1.0 NEUTROPHIL # (test code=NT#) K/mm3 1.8-7.7 LYMPHOCYTE # (test code=LY#) K/mm3 1.0-5.0 MONOCYTE # (test code=MO#) K/mm3 0-0.8 EOSINOPHIL # (test code=EO#) K/mm3 0.0-0.5 BASOPHIL # (test code=BA#) K/mm3 0.0-0.2 [id number] 21:20:00* Test Item Value Reference Range Comments GLUBED (test code=GLUBED) 317 mg/dL 74-106 Performed by certified power grader operator at [facility] [id number] 09:00:00* Test Item Value Reference Range Comments TROPONIN-I (test code=TROPI) 0.021 ng/mL 0-0.045 COMMENTS TO SHOWER MAID: COLLECT 3 HOURS AFTER PREVIOUS [id number] 04:02:00* Test Item Value Reference Range Comments TROPONIN-I (test code=TROPI) 0.022 ng/mL 0-0.045 COMMENTS TO SHOWER MAID: COLLECT 3 HOURS AFTER PREVIOUS SAMPLEBASIC METABOLIC [id number] 23:54:00* Test Item Value Reference Range Comments SODIUM (test code=NA) 142 mmol/L 136-145 POTASSIUM (test code=K) 3.1 mmol/L 3.5-5.1 CHLORIDE (test code=CL) 105.0 mmol/L 98-107 CARBON DIOXIDE (test code=CO2) 25.0 mmol/L 21-32 ANION GAP (test code=GAP) 15.1 10-20 GLUCOSE (test code=GLU) 212 mg/dL 74-106 BLOOD UREA NITROGEN (test code=BUN) 30 mg/dL 7-18 GLOMERULAR FILTRATION RATE (test code=GFR) 10 mL/min >=60 Estimated GFR by using Modified MDRD formula.Chronic kidney disease is defined as either kidney damageor GFR <60 mL/min/1.73 m2 for >3 months. CREATININE (test code=CREAT) 4.60 mg/dL 0.55-1.02 Note change in reference range due to change in reagent. BUN/CREATININE RATIO (test code=BUN/CREA) 6.6 10-20 CALCIUM (test code=CA) 8.0 mg/dL 8.5-10.1 [id number] 23:54:00* Test Item Value Reference Range Comments TROPONIN-I (test code=TROPI) 0.019 ng/mL 0-0.045 HEPATIC FUNCTION [id number] 23:52:00* Test Item Value Reference Range Comments TOTAL PROTEIN (test code=PROT) 7.9 gram/dL 6.4-8.2 ALBUMIN (test code=ALB) 2.7 g/dL 3.4-5.0 GLOBULIN (test code=GLOB) 5.2 gram/dL 2.7-4.2 ALBUMIN/GLOBULIN RATIO (test code=A/G) 0.5 0.75-1.50 BILIRUBIN TOTAL (test code=BILT) 0.20 mg/dL 0.0-1.0 BILIRUBIN DIRECT (test code=BILD) 0.07 mg/dL 0.0-0.20 SGOT/AST (test code=AST) 16 IUnit/L 15-37 SGPT/ALT (test code=ALT) 16 IUnit/L 12-78 ALKALINE PHOSPHATASE TOTAL (test code=ALKP) 144 IUnit/L 45-117 Note change in reference range due to change in reagent. [id number] 23:52:00* Test Item Value Reference Range Comments LIPASE (test code=LIP) 66 U/L 73.0-393.0 [id number] 23:52:00* Test Item Value Reference Range Comments MAGNESIUM (test code=MAG) 2.0 mg/dL 1.8-2.4 BASIC METABOLIC [id number] 23:46:00* Test Item Value Reference Range Comments SODIUM (test code=NA) 142 mmol/L 136-145 POTASSIUM (test code=K) 3.1 mmol/L 3.5-5.1 CHLORIDE (test code=CL) 105.0 mmol/L 98-107 CARBON DIOXIDE (test code=CO2) mmol/L 21-32 ANION GAP (test code=GAP) 10-20 GLUCOSE (test code=GLU) mg/dL 74-106 BLOOD UREA NITROGEN (test code=BUN) mg/dL 7-18 GLOMERULAR FILTRATION RATE (test code=GFR) mL/min >=60 CREATININE (test code=CREAT) mg/dL 0.55-1.02 BUN/CREATININE RATIO (test code=BUN/CREA) 10-20 CALCIUM (test code=CA) mg/dL 8.5-10.1 [id number] 23:46:00* Test Item Value Reference Range Comments TROPONIN-I (test code=TROPI) ng/mL 0-0.045 TROPONIN I [id number] 23:41:00* Test Item Value Reference Range Comments TROPONIN I RAPID (test code=TROPIRAP) 0.03 ng/mL <0.08 Please Note New Reference Range 0.00-0.079 ng/mL - Negative>or=0.08 ng/mL - Positive The use of serial sampling and testing protocol is arecommended practice.An elevated troponin level alone is often not sufficient fordiagnosis of myocardial infarction. Troponin results obtained by different assays may vary.Evaluation of the extent of myocardial damage based onincrease of troponin would be valid only if similarmethodology is used. - CT ABD PELVIS W/O [id number] 23:37:00 Name: BAYRON ESPINOSA [facility] : 1965 Age/S: 52 / F [address] [facility] Unit #: [id number] Loc: [place] [id number] Phys: ELIZABETH RUELAS MD Acct: [id number] Dis Date: Status: REG ER PHONE #: [phone] Exam Date: 09/04/2018 2316 FAX #: [phone] Reason: abdminal pain EXAMS: CPT CODE: [id number] CT ABD PELVIS W/O CONT [id number] AFTER HOURS SERVICE ON: 09/04/2018 11:[address] Scan of the Abdomen and Pelvis Without Contrast Location Code M12 History: abdominal pain Technique: Axial and reconstructed coronal scans were performed on a helical scanner pre oral and IV contrast. Study is limited secondary to lack of oral and IV contrast. One or more of the following dose reduction techniques were used: Automated exposure control, adjustment of the mA and/or kV according to patient size, and/or utilization of iterative reconstruction technique. Findings: There is a new 7 mm right lower lobe pulmonary nodule seen on axial image 3 compared to the prior CT of 05/17/2018. Gallbladder is absent. Liver, pancreas and spleen are within normal limits. The adrenal glands are symmetric. There is a stable exophytic right upper pole renal cyst. Right kidney is atrophic. There is no hydronephrosis in either kidney. Bladder is normal in size but there is significant circumferential bladder wall thickening, slightly irregular along the posterior and lateral bladder wall. Uterus is unremarkable. There is no adnexal mass or pelvic free fluid. The appendix, small bowel and colon are unremarkable. Impression: Circumferential slightly irregular bladder wall thickening. Findings are consistent with long-standing obstruction, cystitis or less likely malignancy. Direct visualization recommended. 7 mm right lower lobe pulmonary nodule. Complete evaluation with a nonemergent chest CT is recommended. Please see guidelines for follow-up below: PAGE 1 Signed Report (CONTINUED) Name: BAYRON ESPINOSA [facility] : 1965 Age/S: 52 / F [address] [facility] Unit #: [id number] Loc: [place] [address] Phys: ELIZABETH RUELAS MD Acct: [id number] Dis Date: Status: REG ER PHONE #: [phone] Exam Date: 09/04/2018 2316 FAX #: [phone] Reason: abdminal pain EXAMS: CPT CODE: [id number] CT ABD PELVIS W/O CONT 42509 <Continued> "Guidelines for Management of Incidental Pulmonary Nodules Detected on CT Images: From the Fleischner Society 2017." Radiology 2017; 284(1):228-243. LOW RISK (Minimal or absent history of smoking and other known risk factors) < 6 mm: No follow-up needed. 6-8 mm: CT at 6-12 months, then consider CT at 18-24 months. If no change, no further imaging needed. > 8 mm: CT at 3 months, PET/CT, or tissue sampling. HIGH RISK (History of smoking or of other known risk factor) < 6 mm: Optional CT at 12 months. 6-8 mm: CT at 6-12 months, then CT at 18-24 months. If no change, no further imaging needed. > 8 mm: If single nodule, recommend CT at 3 months, PET/CT, or tissue sampling. If multiple nodules, recommend CT at 3-6 months, then at 18-24 months. at 2337 Reported and signed by: Maikel Herman M.D. CC: ELIZABETH RUELAS MD Technologist:Sudhakar Escobar, RT(R)(CT) CTDI: DLP: Trnscb Date/Time: 09/04/2018 (2335) [email or web address] Orig Print D/T: S: 09/04/2018 (5740) CTDI: DLP: PAGE 2 Signed Report CBC W/O [id number] 23:23:00* Test Item Value Reference Range Comments WHITE BLOOD CELL (test code=WBC) 8.1 K/mm3 4.5-12.5 RED BLOOD CELL (test code=RBC) 4.99 mill/mm3 3.7-5.2 HEMOGLOBIN (test code=HGB) 13.2 gram/dL 11.5-15.5 HEMATOCRIT (test code=HCT) 45.6 % 36.0-46.0 MEAN CELL VOLUME (test code=MCV) 91.4 fL 80-98 MEAN CELL HGB (test code=MCH) 26.5 picogram 27.0-33.0 MEAN CELL HGB CONCETRATION (test code=MCHC) 28.9 gram/dL 33.0-36.0 RED CELL DISTRIBUTION WIDTH (test code=RDW) 15.1 % 11.6-16.2 PLATELET COUNT (test code=PLT) 250 K/mm3 150-450 MEAN PLATELET VOLUME (test code=MPV) 12.1 fL 6.7-11.0 CBC W/O [id number] 23:21:00* Test Item Value Reference Range Comments WHITE BLOOD CELL (test code=WBC) K/mm3 4.5-12.5 RED BLOOD CELL (test code=RBC) mill/mm3 3.7-5.2 HEMOGLOBIN (test code=HGB) 13.2 gram/dL 11.5-15.5 HEMATOCRIT (test code=HCT) 45.6 % 36.0-46.0 MEAN CELL VOLUME (test code=MCV) fL 80-98 MEAN CELL HGB (test code=MCH) picogram 27.0-33.0 MEAN CELL HGB CONCETRATION (test code=MCHC) gram/dL 33.0-36.0 RED CELL DISTRIBUTION WIDTH (test code=RDW) % 11.6-16.2 PLATELET COUNT (test code=PLT) K/mm3 150-450 MEAN PLATELET VOLUME (test code=MPV) fL 6.7-11.0 - XR CHEST 1 [id number] 22:54:00 FAX: Pradeep Latham MD [phone] [place]: B St: PRE Name: BAYRON PRO [facility] : 09/28/[birth year] Age/S: 52/F [address] [facility] Unit #: [id number] Loc: [place] [address] Phys: Pradeep Latham MD Acct: [id number] Dis Date: Status: PRE ER PHONE #: [phone] Exam Date: 09/04/20182250 FAX #: [phone] Reason: CHEST PAIN EXAMS: CPT CODE: [id number] XR CHEST 1 V 90397 HISTORY: CHEST PAIN TECHNIQUE: AP chest x-ray COMPARISON: 08/11/18 FINDIN GS: No airspace consolidation or pleural effusion. Borderline hear t size. Cardiac pacemaker. Atherosclerotic vascular calcification of the thoracic aorta. Mediastinal silhouette is unremarkable. Right permac ath. Visualized osseous structures are grossly intact. IMPRESSIO N: No acute findings or significant interval change. at 0199 Reported and signed by: Cherise Patten D.O. CC: Pradeep Latham MD Technologist: ZAINAB PARNELL, RT(R); Noris Ji Trnscrd Date/Time/By: 09/04/2018 (6743) : By: [email or web address] Orig Print D/T: S: 09/04/2018 (4978) PAGE 1 Signed Report [id number] 07:40:00* Test Item Value Reference Range Comments GLUBED (test code=GLUBED) 83 MG/DL 70-110 Performed by certified power grader operator at [facility] - XR FLUOROSCOPY 0-60 [id number] 15:04:00 FAX: Richard Montoya MD [phone] [place]: St: ADM FAX: Floyd Moore MD [phone] Name: BAYRON ESPINOSA [facility] : 1965 Age/S: 52/F [address] [place] [address] Unit #: [id number] Loc: Michael26 [facility] [address] Phys: Richard Hall MD Acct: [id number] Dis Date: Status: ADM IN PHONE #: [phone] Exam Date: 08/11/2018 1015 FAX #: [phone] Reason: ESRD.MALFUNCTION DIAL YSIS CATHETER. EXAMS: CPT CODE: [id number] XR FLUOROSCOPY 0-60 MIN 36487 Intraprocedural fluoroscopy was provided by the Department of Radiology. Any images obtained were interpreted by the surgeon intraop eratively. SL: [id number] Electronically Si gned by Irving Mobley on 08/12/2018 at 1504 Reported and signed by: Nehemias Mobley M.D. CC: Richard Hall MD; [facility] Technologist: RT Romero(Laron) Trnarsh Date/Time/By: 08/12/2018 (1504) : By: [email or web address] Orig Print D/T: S: 08/12/2018 (1505) PAGE 1 Signed Report [id number] 12:36:00* Test Item Value Reference Range Comments GLUBED (test code=GLUBED) 92 MG/DL 70-110 Performed by certified power grader operator at [facility] BASIC METABOLIC [id number] 07:50:00* Test Item Value Reference Range Comments SODIUM (test code=NA) 137 mEq/L 134-147 POTASSIUM (test code=K) 3.7 mEq/L 3.4-5.0 CHLORIDE (test code=CL) 101 mEq/L 100-108 CARBON DIOXIDE (test code=CO2) 28 mEq/L 21-33 ANION GAP (test code=GAP) 12 0-20 GLUCOSE (test code=GLU) 107 mg/dL 70-110 BLOOD UREA NITROGEN (test code=BUN) 22 mg/dL 7-18 GLOMERULAR FILTRATION RATE (test code=GFR) 15.1 90-95 Units of measure=ml/min/1.73 m2 CREATININE (test code=CREAT) 3.2 mg/dL 0.6-1.3 CALCIUM (test code=CA) 8.0 mg/dL 8.0-10.5 CBC W/AUTO [id number] 07:45:00* Test Item Value Reference Range Comments WHITE BLOOD CELL (test code=WBC) 9.01 x10 3/uL 4.5-11.0 RED BLOOD CELL (test code=RBC) 4.57 x10 6/uL 3.54-5.02 HEMOGLOBIN (test code=HGB) 12.6 g/dL 11.0-15.0 HEMATOCRIT (test code=HCT) 41.6 % 33.0-45.0 MEAN CELL VOLUME (test code=MCV) 91.0 fL 81.0-99.0 MEAN CELL HGB (test code=MCH) 27.6 pg 27.0-33.0 MEAN CELL HGB CONCETRATION (test code=MCHC) 30.3 g/dL 33.0-37.0 RED CELL DISTRIBUTION WIDTH CV (test code=RDW) 15.9 % 11.5-14.5 RED CELL DISTRIBUTION WIDTH SD (test code=RDW-SD) 53.6 fL 37.0-54.0 PLATELET COUNT (test code=PLT) 209 x10 3/uL 150-400 MEAN PLATELET VOLUME (test code=MPV) 12.8 fL 7.0-9.0 NEUTROPHIL % (test code=NT%) 62.4 % 56.0-77.0 IMMATURE GRANULOCYTE % (test code=IG%) 0.2 % 0.0-2.0 LYMPHOCYTE % (test code=LY%) 26.0 % 14.0-32.0 MONOCYTE % (test code=MO%) 7.4 % 4.8-9.0 EOSINOPHIL % (test code=EO%) 3.1 % 0.3-3.7 BASOPHIL % (test code=BA%) 0.9 % 0.0-2.0 NUCLEATED RBC % (test code=NRBC%) 0.0 % 0-0 NEUTROPHIL # (test code=NT#) 5.62 x10 3/uL 2.0-7.6 IMMATURE GRANULOCYTE # (test code=IG#) 0.02 x10 3/uL 0.00-0.03 LYMPHOCYTE # (test code=LY#) 2.34 x10 3/uL 1.0-3.8 MONOCYTE # (test code=MO#) 0.67 x10 3/uL 0.1-0.8 EOSINOPHIL # (test code=EO#) 0.28 x10 3/uL 0.0-0.2 BASOPHIL # (test code=BA#) 0.08 x10 3/uL 0.0-0.2 NUCLEATED RBC # (test code=NRBC#) 0.00 x10 3/uL 0.0-0.1 MANUAL DIFF REQUIRED (test code=MDIFF) NO ACUTE HEPATITIS [id number] 07:29:00* Test Item Value Reference Range Comments AB HEPATITIS A IGM (test code=HAVMAB) NON REACTIVE INDEX NON REACT. AG HEPATITIS B SURFACE (test code=HBSAG) NON REACTIVE INDEX NonReactive AB HEPATITIS B CORE IGM (test code=HBCMAB) NON REACTIVE INDEX NON REACT. AB HEPATITIS C (test code=HCVAB) NON REACTIVE INDEX NON REACT. COMMENTS: At start of hemodialysisAB HEPATITIS B [id number] 07:29:00* Test Item Value Reference Range Comments AB HEPATITIS B SURFACE (test code=HBSAB) < 3.1 mIU/mL Immunity>9.9 Status of Immunity Anti-HBs Level Inconsistent with Immunity 0.0 - 9.9Consistent with Immunity >9.9Performed At: [facility] [id number] [place], [place] [id number] Mckay Enamorado MD Ph:[phone] COMMENTS: At start of [id number] 22:24:00* Test Item Value Reference Range Comments GLUBED (test code=GLUBED) 173 MG/DL 70-110 Performed by certified power grader operator at [facility] [id number] 16:32:00* Test Item Value Reference Range Comments GLUBED (test code=GLUBED) 163 MG/DL 70-110 Performed by certified power grader operator at [facility] ACUTE HEPATITIS [id number] 14:16:00* Test Item Value Reference Range Comments AB HEPATITIS A IGM (test code=HAVMAB) NON REACTIVE INDEX NON REACT. AG HEPATITIS B SURFACE (test code=HBSAG) NON REACTIVE INDEX NonReactive AB HEPATITIS B CORE IGM (test code=HBCMAB) NON REACTIVE INDEX NON REACT. AB HEPATITIS C (test code=HCVAB) NON REACTIVE INDEX NON REACT. COMMENTS: At start of hemodialysisAB HEPATITIS B [id number] 14:16:00* Test Item Value Reference Range Comments AB HEPATITIS B SURFACE (test code=HBSAB) COMMENTS: At start of hemodialysis- XR CHEST 1 [id number] 11:59:00 FAX: Floyd Moore MD [phone] [place]: St: [facility] FAX: Carolin Watson CRNA [phone] Name: BAYRON ESPINOSA [facility] : 1965 Age/S: 52/F [address] [place] [address] Unit #: [id number] Loc: G.M126 [facility] X [address] Phys: Carolin Watson CRNA Acct: [id number] Dis Date: Status: ADM IN PHONE #: [phone] Exam Date: 08/11/2018 1127 FAX #: [phone] Reason: PREOP ANESTHESIA PROT OCOL EXAMS: CPT CODE: [id number] XR CHEST 1 V 95819 EXAM: CHEST SINGLE VIEW HISTORY: 52-year-old female for preoperative evaluation, history of ESRD with clotted dialysis chary ter COMPARISON: Chest radiograph 07/20/2018 FINDINGS: Small left retrocardiac opacity. Lungs are otherwise clear. The cardiomed iastinal silhouette is mildly prominent. Aortic calcifications. No acute osseous abnormality. Left subclavian single chamber pacer. Right interna l jugular dialysis catheter noted terminating in the high right atrium. IMPRESSION: 1. Small left retrocardiac opacity, atelectasis versus small infiltrate. SL: CL [id number] at 1159 Reported and signed by: Lauren Hernandez M.D. CC: Floyd Moore; Carolin Watson [facility] Technologist: Echo Centeno, RT(R), RTT Trnscrd Date/Time/By: 08/11/2018 (3515) : By: [email or web address] Orig Print D/T: S: 08/11/2018 (7845) PAGE 1 Signed Report [id number] 11:00:00* Test Item Value Reference Range Comments GLUBED (test code=GLUBED) 151 MG/DL 70-110 Performed by certified power grader operator at [facility] B-TYPE NATRIURETIC [id number] 09:32:00* Test Item Value Reference Range Comments B-TYPE NATRIURETIC PEPTIDE (test code=BNP) 392.7 PG/ML 0-100 BASIC METABOLIC [id number] 07:51:00* Test Item Value Reference Range Comments SODIUM (test code=NA) 140 mEq/L 134-147 POTASSIUM (test code=K) 3.4 mEq/L 3.4-5.0 CHLORIDE (test code=CL) 109 mEq/L 100-108 CARBON DIOXIDE (test code=CO2) 24 mEq/L 21-33 ANION GAP (test code=GAP) 10 0-20 GLUCOSE (test code=GLU) 194 mg/dL 70-110 BLOOD UREA NITROGEN (test code=BUN) 45 mg/dL 7-18 GLOMERULAR FILTRATION RATE (test code=GFR) 10.7 90-95 Units of measure=ml/min/1.73 m2 CREATININE (test code=CREAT) 4.3 mg/dL 0.6-1.3 CALCIUM (test code=CA) 7.9 mg/dL 8.0-10.5 HCG SERUM [id number] 07:51:00* Test Item Value Reference Range Comments HCG SERUM QUAL (test code=HCGQL) SERUM NEGATIVE NEGATIVE BASIC METABOLIC [id number] 07:46:00* Test Item Value Reference Range Comments SODIUM (test code=NA) mEq/L 134-147 POTASSIUM (test code=K) mEq/L 3.4-5.0 CHLORIDE (test code=CL) mEq/L 100-108 CARBON DIOXIDE (test code=CO2) mEq/L 21-33 ANION GAP (test code=GAP) 0-20 GLUCOSE (test code=GLU) mg/dL 70-110 BLOOD UREA NITROGEN (test code=BUN) mg/dL 7-18 GLOMERULAR FILTRATION RATE (test code=GFR) 90-95 CREATININE (test code=CREAT) mg/dL 0.6-1.3 CALCIUM (test code=CA) mg/dL 8.0-10.5 HCG SERUM [id number] 07:46:00* Test Item Value Reference Range Comments HCG SERUM QUAL (test code=HCGQL) SERUM NEGATIVE NEGATIVE CBC W/AUTO [id number] 07:27:00* Test Item Value Reference Range Comments WHITE BLOOD CELL (test code=WBC) 7.19 x10 3/uL 4.5-11.0 RED BLOOD CELL (test code=RBC) 4.17 x10 6/uL 3.54-5.02 HEMOGLOBIN (test code=HGB) 11.6 g/dL 11.0-15.0 HEMATOCRIT (test code=HCT) 37.9 % 33.0-45.0 MEAN CELL VOLUME (test code=MCV) 90.9 fL 81.0-99.0 MEAN CELL HGB (test code=MCH) 27.8 pg 27.0-33.0 MEAN CELL HGB CONCETRATION (test code=MCHC) 30.6 g/dL 33.0-37.0 RED CELL DISTRIBUTION WIDTH CV (test code=RDW) 15.8 % 11.5-14.5 RED CELL DISTRIBUTION WIDTH SD (test code=RDW-SD) 52.1 fL 37.0-54.0 PLATELET COUNT (test code=PLT) 216 x10 3/uL 150-400 MEAN PLATELET VOLUME (test code=MPV) 12.6 fL 7.0-9.0 NEUTROPHIL % (test code=NT%) 50.6 % 56.0-77.0 IMMATURE GRANULOCYTE % (test code=IG%) 0.3 % 0.0-2.0 LYMPHOCYTE % (test code=LY%) 36.2 % 14.0-32.0 MONOCYTE % (test code=MO%) 7.2 % 4.8-9.0 EOSINOPHIL % (test code=EO%) 4.6 % 0.3-3.7 BASOPHIL % (test code=BA%) 1.1 % 0.0-2.0 NUCLEATED RBC % (test code=NRBC%) 0.0 % 0-0 NEUTROPHIL # (test code=NT#) 3.64 x10 3/uL 2.0-7.6 IMMATURE GRANULOCYTE # (test code=IG#) 0.02 x10 3/uL 0.00-0.03 LYMPHOCYTE # (test code=LY#) 2.60 x10 3/uL 1.0-3.8 MONOCYTE # (test code=MO#) 0.52 x10 3/uL 0.1-0.8 EOSINOPHIL # (test code=EO#) 0.33 x10 3/uL 0.0-0.2 BASOPHIL # (test code=BA#) 0.08 x10 3/uL 0.0-0.2 NUCLEATED RBC # (test code=NRBC#) 0.00 x10 3/uL 0.0-0.1 MANUAL DIFF REQUIRED (test code=MDIFF) NO PROTHROMBIN [id number] 07:06:00* Test Item Value Reference Range Comments PROTHROMBIN TIME PATIENT (test code=PTP) 11.5 SECONDS 9.3-12.9 INTERNATIONAL NORMAL RATIO (test code=INR) 1.0 0.8-1.2 TARGET INR BY INDICATION Indication INR1. Prophylaxis of venous thrombosis 2.0 - 3.0 (orthopedic surgery), Prophylaxis of venous thrombosis (other than high-risk surgery), Treatment of Deep Vein Thrombosis/Pulmonary Embolism, Prevention of systemic embolism - Tissue heart valves, Acute Myocardial Infarction (to prevent systemic embolism), Valvular heart disease, Atrial Fibrillation, Bileaflet mechanical valve in aortic position.2. Mechanical prosthetic valves (high risk), 2.5 - 3.5 Presence of Lupus Anticoagulant or Antiphospholipid Antibodies, Prevention of systemic embolism - Acute Myocardial Infarction (to prevent recurrent infarct). THROMBOPLASTIN TIME [id number] 07:06:00* Test Item Value Reference Range Comments THROMBOPLASTIN TIME PARTIAL (test code=PTT) 30.1 Seconds 25.0-39.5 Therapeutic Range: 61.8-83.8 Sec Effective 08/17/2013 [id number] 20:57:00* Test Item Value Reference Range Comments GLUBED (test code=GLUBED) 224 MG/DL 70-110 Performed by certified power grader operator at [facility] URINALYSIS [id number] 17:51:00* Test Item Value Reference Range Comments UA COLOR (test code=COLU) YELLOW YEL/STRAW UA APPEARANCE (test code=APPU) CLOUDY CLEAR UA GLUCOSE DIPSTICK (test code=DGLUU) 3+ NEGATIVE UA BILIRUBIN DIPSTICK (test code=BILU) NEGATIVE NEGATIVE UA KETONE DIPSTICK (test code=KETU) NEGATIVE NEGATIVE UA SPECIFIC GRAVITY (test code=SGU) 1.010 1.005-1.030 UA BLOOD DIPSTICK (test code=MEGHAN) 1+ NEGATIVE UA PH DIPSTICK (test code=SEEMA) 7.0 5.0-7.0 UA PROTEIN DIPSTICK (test code=PROU) 3+ NEGATIVE UA UROBILINIOGEN DIPSTICK (test code=URO) 0.2 mg/dL 0.2-1.0 UA NITRITE DIPSTICK (test code=VIVEK) POSITIVE NEGATIVE UA LEUKOCYTE ESTERASE DIPSTICK (test code=LEUU) 2+ NEGATIVE UA WBC (test code=WBCU) 21-50 WBC/HPF 0-3 UA RBC (test code=RBCU) >50 RBC/HPF 0-3 UA BACTERIA (test code=BACU) 1+ /HPF NONE SEEN UA SQUAMOUS CELLS (test code=SQU) 0-5 /HPF NONE SEEN UA CULT [id number] 17:51:00* Test Item Value Reference Range Comments UA CULTURE NEEDED? (test code=UACULT) YES,WBC>10 & EPI<=25 Criteria Culture Chk Criteria met, Urine Culture in-process.
[2019-01-31] MEDS ORDERED: ASPIRIN 81 MG CHEW TAB PO ONE (20:15)
--- NOTE | 2019-01-31 20:54 | Diagnostic Imaging Report ---
EXAMINATION: CHEST SINGLE (PORTABLE) INDICATION: Cough ^ERMD ORDER ^[id number] ^2029 ^Y COMPARISON: None FINDINGS: TUBES and LINES: Left chest dual lead cardiac device. Right chest central venous catheter.. LUNGS: Lungs are well inflated. Perihilar peribronchial hazy opacity could be due to bronchitis There is no evidence of pneumonia or pulmonary edema. PLEURA: No pleural effusion or pneumothorax. HEART AND MEDIASTINUM: The cardiomediastinal silhouette is unremarkable. BONES AND SOFT TISSUES: No acute osseous lesion. Soft tissues are unremarkable. UPPER ABDOMEN: No free air under the diaphragm. IMPRESSION: Perihilar peribronchial hazy opacity could be due to bronchitis. Signed by: Dr. Олег Veloz M.D. on 01/31/2019 8:50 PM
[2019-01-31 22:21] VITALS: BP 143/88
== END 2019-01-31 22:43 | disposition home or self-care (01) ==
LOC: ER 19:38
DX: R07.89 Other chest pain (principal); R05 Cough; I12.0 Hypertensive chronic kidney disease with stage 5 chronic kidney disease or end stage renal disease; E11.22 Type 2 diabetes mellitus with diabetic chronic kidney disease; N18.6 End stage renal disease
CPT/HCPCS: 36415; 71045; 93005; 99283